=== PATIENT | male | born 1980 | race Caucasian/White ===

== ENCOUNTER → 2023-06-22 | Emergency (ER) | payer OTHER ==
[~2023-06-22] MED LIST: AZITHROMYCIN 250 MG TAB ONE; CODEINE 30MG/APAP 300MG TAB ONE; KETOROLAC 30 MG/ML INJ ONE
--- OUTSIDE RECORDS SUMMARY | 2023-06-22 20:22 | XMS REPORT | Continuity of Care Document ---
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 Jerry Reyes fentaNYL (ANES) 12-27 13:22: 00 No Route: IV, Drug form: INJ, ONCE, Stop date: 12/27/17 8:22:00 CDT Jerry Reyes ertapenem (ANES) 12-27 13:22: 00 No Route: IV, Drug form: INJ, ONCE, Stop date: 12/27/17 8:22:00 CDT Jerry Reyes fentaNYL (ANES) 12-27 13:22: 00 No Route: IV, Drug form: INJ, ONCE, Stop date: 12/27/17 8:22:00 CDT Jerry Reyes Enoxaparin 12-27 13:00: 00 No 30 mg, Route: SUB-Q, [id number], Dosing Weight 61.364, kg, Start date: 12/27/17 8:00:00 CDT, Duration: 30 day, Stop date: 01/25/18 20:00:00 CDT Jerry Reyes Enoxaparin 12-27 13:00: 00 No 30 mg, Route: SUB-Q, [id number], Dosing Weight 61.364, kg, Start date: 12/27/17 8:00:00 CDT, Duration: 30 day, Stop date: 01/25/18 20:00:00 CDT Jerry Reyes D5W 1/2NS + KCL 20mEq/L 1000ml (Premix) 1,000 mL 12-27 12:54: 00 No Notes: PREMIX IV - Do Not Alter WASTE: F/P - Sink; E - Municipal Trash Bin Jerry Reyes Saline Flush 0.9% 12-27 12:54: 00 No Notes: (Same as: BD Posiflush) Jerry Reyes D5W 1/2NS + KCL 20mEq/L 1000ml (Premix) 1,000 mL 12-27 12:54: 00 No Notes: PREMIX IV - Do Not Alter WASTE: F/P - Sink; E - Municipal Trash Bin Jerry Reyes Saline Flush 0.9% 12-27 12:54: 00 No Notes: (Same as: BD Posiflush) Jerry Reyes Lactated Ringers Injection IV (ANES) 1000 mL 12-27 12:05: 00 No Route: IV, Total Volume: 1,000, Start date: 12/27/17 7:05:00 CDT, Stop date: 12/27/17 8:05:00 CDT Jerry Reyes Lactated Ringers Injection IV (ANES) 1000 mL 12-27 12:05: 00 No Route: IV, Total Volume: 1,000, Start date: 12/27/17 7:05:00 CDT, Stop date: 12/27/17 8:05:00 CDT Jerry Reyes 72 HR Scopolamine 0.0139 MG/HR Transdermal Patch 12-27 11:58: 00 No Notes: Change patch every 72 hours (Same as: Transderm- Scop) Jerry Reyes gabapentin 300 MG Oral Capsule 12-27 11:58: 00 No Notes: (Same as: Neurontin) Jerry Reyes Celebrex 12-27 11:58: 00 No Notes: NSAID. Please check indication . Not for seizure. (Same As: CeleBREX) Jerry Reyes Tylenol 12-27 11:58: 00 No Notes: Max acetaminop hen 4000 mg/day (4 gm/day). (Same as: Tylenol Extra Strength) Jerry Reyes 72 HR Scopolamine 0.0139 MG/HR Transdermal Patch 12-27 11:58: 00 No Notes: Change patch every 72 hours (Same as: Transderm- Scop) Jerry Reyes gabapentin 300 MG Oral Capsule 12-27 11:58: 00 No Notes: (Same as: Neurontin) Jerry Reyes Celebrex 12-27 11:58: 00 No Notes: NSAID. Please check indication . Not for seizure. (Same As: CeleBREX) Jerry Reyes Tylenol 12-27 11:58: 00 No Notes: Max acetaminop hen 4000 mg/day (4 gm/day). (Same as: Tylenol Extra Strength) Jerry Reyes Acetaminoph en 300 MG / Hydrocodone Bitartrate 10 MG Oral Tablet [Vicodin 10/300] 12-16 19:33: 00 No 1 tab, PO, Q8H, PRN Pain, # 90 tab, 0 Refill(s) Kamillafreddie Reyes tramadol hydrochlori de 50 MG Oral Tablet 12-16 19:33: 00 No 50 mg = 1 tab, PO, BID, # 30 tab, 0 Refill(s) Kamillafreddie Reyes Acetaminoph en 300 MG / Hydrocodone Bitartrate 10 MG Oral Tablet [Vicodin 10/300] 12-16 19:33: 00 No 1 tab, PO, Q8H, PRN Pain, # 90 tab, 0 Refill(s) Kamillafreddie Reyes tramadol hydrochlori de 50 MG Oral Tablet 12-16 19:33: 00 No 50 mg = 1 tab, PO, BID, # 30 tab, 0 Refill(s) Jerry Reyes PEG 3350/Electr olytes 240 GM Oral Solution Reconstitut ed PEG 3350/Electr olytes 240 GM Oral Solution Reconstitut ed 11-15 00:00: 00 Yes JOVITA WHYTE M.D. MIX DIRECTED AND DRINK OVER 4 HOURS, START AT 4PM. [facility] Neomycin Sulfate 500 MG Oral Tablet Neomycin Sulfate 500 MG Oral Tablet 11-15 00:00: 00 Yes JOVITA WHYTE M.D. TAKE TWO TABLETS PO AT 1PM, 2PM, 11PM [facility] Erythromyci n Base 500 MG Oral Tablet Erythromyci n Base 500 MG Oral Tablet 11-15 00:00: 00 Yes JOVITA WHYTE M.D. TAKE TWO TABLETS P.O. AT 1PM, 2PM AND 11PM. [facility] Aspirin 325 MG Oral Tablet 2016-06 19:51: 00 Yes 325 mg = 1 tab, NG, Daily, # 21 tab, 0 Refill(s) Jerry Reyes Aspirin 325 MG Oral Tablet 2016-06 19:51: 00 Yes 325 mg = 1 tab, NG, Daily, # 21 tab, 0 Refill(s) Jerry Reyes naproxen 500 mg oral tablet 2016-06 19:09: 00 Yes 500 mg = 1 tab, PO, Q12H, X 30 day, # 60 tab, 0 Refill(s) Jerry Reyes gabapentin 300 MG Oral Capsule 2016-06 19:09: 00 Yes 300 mg = 1 cap, PO, Q8H, # 63 cap, 0 Refill(s) Jerry Reyes Aspirin 325 MG Oral Tablet 2016-06 19:09: 00 No 325 mg = 1 tab, NG, Daily, # 60 tab, 0 Refill(s) Jerry Reyes acetaminoph en 500 mg oral tablet 2016-06 19:09: 00 Yes 1,000 mg = 2 tab, PO, Q6H, X 14 day, # 112 tab, 0 Refill(s) Jerry Reyes Docusate Sodium 100 MG Oral Capsule 2016-06 19:09: 00 Yes 100 mg = 1 cap, PO, BID, # 60 cap, 0 Refill(s) Jerry Reyes Oxycodone Hydrochlori de 5 MG Oral Tablet 2016-06 19:09: 00 Yes 5 mg = 1 tab, PO, Q6H, PRN Pain Score 4-6, X 7 day, # 28 tab, 0 Refill(s) Jerry Reyes tramadol hydrochlori de 50 MG Oral Tablet 2016-06 19:09: 00 Yes 100 mg = 2 tab, PO, Q6H, PRN Pain Score 4-6, X 14 day, # 112 tab, 0 Refill(s) Jerry Reyes naproxen 500 mg oral tablet 2016-06 19:09: 00 Yes 500 mg = 1 tab, PO, Q12H, X 30 day, # 60 tab, 0 Refill(s) Jerry Reyes gabapentin 300 MG Oral Capsule 2016-06 19:09: 00 Yes 300 mg = 1 cap, PO, Q8H, # 63 cap, 0 Refill(s) Jerry Reyes Aspirin 325 MG Oral Tablet 2016-06 19:09: 00 No 325 mg = 1 tab, NG, Daily, # 60 tab, 0 Refill(s) Jerry yip Eric acetaminoph en 500 mg oral tablet 2016-06 19:09: 00 Yes 1,000 mg = 2 tab, PO, Q6H, X 14 day, # 112 tab, 0 Refill(s) Kamillafreddie phi Reyes Docusate Sodium 100 MG Oral Capsule 2016-06 19:09: 00 Yes 100 mg = 1 cap, PO, BID, # 60 cap, 0 Refill(s) Kamillafreddie phi Reyes Oxycodone Hydrochlori de 5 MG Oral Tablet 2016-06 19:09: 00 Yes 5 mg = 1 tab, PO, Q6H, PRN Pain Score 4-6, X 7 day, # 28 tab, 0 Refill(s) Kamillafreddie phi Reyes tramadol hydrochlori de 50 MG Oral Tablet 2016-06 19:09: 00 Yes 100 mg = 2 tab, PO, Q6H, PRN Pain Score 4-6, X 14 day, # 112 tab, 0 Refill(s) Kamillafreddie phi Reyes Robaxin 03-25 18:00: 00 No Notes: (Same as:Robaxin ) Kamillafreddie phi Reyes Robaxin 03-25 18:00: 00 No Notes: (Same as:Robaxin ) Kamillafreddie phi Reyes Isolyte S PH-7.4 (Bolus) IV 03-25 02:22: 00 No 500 mL, Route: IV, Dosing Weight 62.4, kg, ONCE, Start date: 03/24/17 21:22:00 CDT, Stop date: 03/24/17 21:22:00 CDT Kamillafreddie phi Reyes Isolyte S PH-7.4 (Bolus) IV 03-25 02:22: 00 No 500 mL, Route: IV, Dosing Weight 62.4, kg, ONCE, Start date: 03/24/17 21:22:00 CDT, Stop date: 03/24/17 21:22:00 CDT Jerry Reyes TPN solution, adult 1,000 mL + famotidine 1 ea 03-24 23:00: 00 No Notes: Per hospital policy, bag must be changed every 24hr. [facility] TPN solution, adult 1,000 mL + famotidine 1 03-24 23:00: 00 No Notes: Per hospital policy, bag must be changed every 24hr. [facility] [place] TPN solution, adult 1,000 mL + famotidine 1 03-23 23:00: 00 No Notes: Per hospital policy, bag must be changed every 24hr. [facility] TPN solution, adult 1,000 mL + famotidine 1 03-23 23:00: 00 No Notes: Per hospital policy, bag must be changed every 24hr. [facility] Insulin regular 03-23 14:17: 00 No 60 units) WASTE: F/P - Black; E - Municipal Trash Bin Stable for 28 days at room temperatur e Expires in days from ____Date [facility] [place] Dextrose 50% Syringe 03-23 14:17: 00 No 25 gm, 50 mL, Route: IVP, Drug Form: INJ, Dosing Weight 62.4, kg, PRN, PRN Blood Glucose Results, Start date: 03/23/17 9:17:00 CDT, Duration: 30 day, Stop date: 04/22/17 9:16:00 CDT [facility] [place] Glucagon 03-23 14:17: 00 No 1 mg, Route: IM, Drug form: PDR/INJ, PRN, Dosing Weight 62.4, kg, PRN Blood Glucose Results, Start date: 03/23/17 9:17:00 CDT, Duration: 30 day, Stop date: 04/22/17 9:16:00 CDT [facility] [place] Insulin regular 03-23 14:17: 00 No 60 units) WASTE: F/P - Black; E - Municipal Trash Bin Stable for 28 days at room temperatur e Expires in days from ____Date [facility] Dextrose 50% Syringe 03-23 14:17: 00 No 25 gm, 50 mL, Route: IVP, Drug Form: INJ, Dosing Weight 62.4, kg, PRN, PRN Blood Glucose Results, Start date: 03/23/17 9:17:00 CDT, Duration: 30 day, Stop date: 04/22/17 9:16:00 CDT Jerry Reyes Glucagon 03-23 14:17: 00 No 1 mg, Route: IM, Drug form: PDR/INJ, PRN, Dosing Weight 62.4, kg, PRN Blood Glucose Results, Start date: 03/23/17 9:17:00 CDT, Duration: 30 day, Stop date: 04/22/17 9:16:00 CDT Jerry Reyes TPN solution, adult 1,000 mL + famotidine 1 ea 03-22 23:00: 00 No Notes: Per hospital policy, bag must be changed every 24hr. Jerry Reyes TPN solution, adult 1,000 mL + famotidine 1 ea 03-22 23:00: 00 No Notes: Per hospital policy, bag must be changed every 24hr. Jerry yip Eric gabapentin 300 MG Oral Capsule 03-22 21:00: 00 No Notes: (Same as: Neurontin) Jerry yip Eric gabapentin 300 MG Oral Capsule 03-22 21:00: 00 No Notes: (Same as: Neurontin) Jerry yip Eric Ondansetron 03-22 14:57: 00 No Notes: (Same as: Zofran) MEDICATION WASTE Product Size: 4 mg Product Wasted: ___ mg Jerry yip Eric Naloxone 03-22 14:57: 00 No Notes: Same as Narcan Jerry Reyes Hydromorpho ne 03-22 14:57: 00 No Notes: Same as: Dilaudid Kamillafreddie phi Reyes Flumazenil 03-22 14:57: 00 No Notes: (Same as: Romazicon) Jerry phi Reyes Ondansetron 03-22 14:57: 00 No Notes: (Same as: Zofran) MEDICATION WASTE Product Size: 4 mg Product Wasted: ___ mg Kamillafreddie yip Eric Naloxone 03-22 14:57: 00 No Notes: Same as Narcan Memoria phi Reyes Hydromorpho ne 03-22 14:57: 00 No Notes: Same as: Dilaudid [facility] Flumazenil 03-22 14:57: 00 No Notes: (Same as: Romazicon) [facility] [place] Morphine 03-22 14:48: 00 No Notes: (Same as:MORPhin e Sulfate) [facility] Morphine 03-22 14:48: 00 No Notes: (Same as:MORPhin e Sulfate) [facility] neostigmine (ANES) 03-22 14:44: 00 No Route: IV, Drug form: INJ, ONCE, Stop date: 03/22/17 9:44:00 CDT Memoria phi Reyes glycopyrrol ate (ANES) 03-22 14:44: 00 No Route: IV, Drug form: INJ, ONCE, Stop date: 03/22/17 9:44:00 CDT Memoria phi Reyes ondansetron (ANES) 03-22 14:44: 00 No Route: IV, Drug form: INJ, ONCE, Stop date: 03/22/17 9:44:00 CDT [facility] phi Reyes neostigmine (ANES) 03-22 14:44: 00 No Route: IV, Drug form: INJ, ONCE, Stop date: 03/22/17 9:44:00 CDT [facility] phi Reyes glycopyrrol ate (ANES) 03-22 14:44: 00 No Route: IV, Drug form: INJ, ONCE, Stop date: 03/22/17 9:44:00 CDT [facility]oria phi Reyes ondansetron (ANES) 03-22 14:44: 00 No Route: IV, Drug form: INJ, ONCE, Stop date: 03/22/17 9:44:00 CDT [facility] [place] phenylephri ne (ANES) 03-22 13:49: 00 No Route: IV, Drug form: INJ, ONCE, Stop date: 03/22/17 8:49:00 CDT [facility] [place] phenylephri ne (ANES) 03-22 13:49: 00 No Route: IV, Drug form: INJ, ONCE, Stop date: 03/22/17 8:49:00 CDT Memfreddie Nagyann rocuronium ([facility]) 03-22 13:19: 00 No Route: IV, Drug form: INJ, ONCE, Stop date: 03/22/17 8:19:00 CDT [facility] l [facility] propofol ([facility]) 03-22 13:19: 00 No Route: IV, Drug form: INJ, ONCE, Stop date: 03/22/17 8:19:00 CDT [facility] [place] lidocaine ([facility]) 03-22 13:19: 00 No Route: IV, Drug form: INJ, ONCE, Stop date: 03/22/17 8:19:00 CDT [facility] fentaNYL ([facility]) 03-22 13:19: 00 No Route: IV, Drug form: INJ, ONCE, Stop date: 03/22/17 8:19:00 CDT Memfreddie l Eric ceFAZolin ([facility]) 03-22 13:19: 00 No Route: IV, Drug form: INJ, ONCE, Stop date: 03/22/17 8:19:00 CDT Memfreddie Nagyann rocuronium ([facility]) 03-22 13:19: 00 No Route: IV, Drug form: INJ, ONCE, Stop date: 03/22/17 8:19:00 CDT [facility] propofol ([facility]) 03-22 13:19: 00 No Route: IV, Drug form: INJ, ONCE, Stop date: 03/22/17 8:19:00 CDT [facility] [place] lidocaine ([facility]) 03-22 13:19: 00 No Route: IV, Drug form: INJ, ONCE, Stop date: 03/22/17 8:19:00 CDT [facility] [place] fentaNYL ([facility]) 03-22 13:19: 00 No Route: IV, Drug form: INJ, ONCE, Stop date: 03/22/17 8:19:00 CDT [facility] [place] ceFAZolin ([facility]) 03-22 13:19: 00 No Route: IV, Drug form: INJ, ONCE, Stop date: 03/22/17 8:19:00 CDT [facility] [place] midazolam ([facility]) 03-22 13:04: 00 No Route: IV, Drug form: SOLN, ONCE, Stop date: 03/22/17 8:04:00 CDT [facility] [place] midazolam ([facility]) 03-22 13:04: 00 No Route: IV, Drug form: SOLN, ONCE, Stop date: 03/22/17 8:04:00 CDT Memoria l Eric LR 1000 mL INJ ([facility]) 03-22 12:29: 00 No Route: IV, Total Volume: 1,000, Start date: 03/22/17 7:29:00 CDT, Stop date: 03/22/17 8:29:00 CDT [facility] [place] LR 1000 mL INJ ([facility]) 03-22 12:29: 00 No Route: IV, Total Volume: 1,000, Start date: 03/22/17 7:29:00 CDT, Stop date: 03/22/17 8:29:00 CDT Memoria l [facility] TPN solution, adult 1,000 mL + famotidine 1 03-21 23:00: 00 No Notes: Per hospital policy, bag must be changed every 24hr. [facility] [place] TPN solution, adult 1,000 mL + famotidine 1 03-21 23:00: 00 No Notes: Per hospital policy, bag must be changed every 24hr. [facility] l [place] TPN solution, adult 1,000 mL + famotidine 1 03-20 23:00: 00 No Notes: Per hospital policy, bag must be changed every 24hr. [facility] [place] TPN solution, adult 1,000 mL + famotidine 1 03-20 23:00: 00 No Notes: Per hospital policy, bag must be changed every 24hr. [facility] [place] Acetaminoph en 03-20 18:00: 00 No Notes: Max acetaminop hen 4000 mg/day (4 gm/day). (Same as: Tylenol Extra Strength) [facility] l [facility] Acetaminoph en 03-20 18:00: 00 No Notes: Max acetaminop hen 4000 mg/day (4 gm/day). (Same as: Tylenol Extra Strength) Jerry Reyes TPN solution, adult 1,000 mL + famotidine 1 ea 03-19 23:00: 00 No Notes: Per hospital policy, bag must be changed every 24hr. Jerry Reyes TPN solution, adult 1,000 mL + famotidine 1 ea 03-19 23:00: 00 No Notes: Per hospital policy, bag must be changed every 24hr. Jerry Reyes cefOXitin (ANES) 03-19 13:48: 00 No Route: IV, Drug form: INJ, ONCE, Stop date: 03/19/17 8:48:00 CDT Jerry Reyes ketAMINE (ANES) 03-19 13:48: 00 No Route: IV, Drug form: INJ, ONCE, Stop date: 03/19/17 8:48:00 CDT Memfreddie Nagyann cefOXitin (ANES) 03-19 13:48: 00 No Route: IV, Drug form: INJ, ONCE, Stop date: 03/19/17 8:48:00 CDT Memfreddie Reyes ketAMINE (ANES) 03-19 13:48: 00 No Route: IV, Drug form: INJ, ONCE, Stop date: 03/19/17 8:48:00 CDT Jerry Reyes midazolam (ANES) 03-19 13:44: 00 No Route: IV, Drug form: SOLN, ONCE, Stop date: 03/19/17 8:44:00 CDT Memfreddie Reyes lidocaine (ANES) 03-19 13:44: 00 No Route: IV, Drug form: INJ, ONCE, Stop date: 03/19/17 8:44:00 CDT Jerry phi Eric propofol (ANES) 03-19 13:44: 00 No Route: IV, Drug form: INJ, ONCE, Stop date: 03/19/17 8:44:00 CDT Memfreddie Nagyann succinylcho line (ANES) 03-19 13:44: 00 No Route: IV, Drug form: INJ, ONCE, Stop date: 03/19/17 8:44:00 CDT Memoria phi Reyes fentaNYL ([facility]) 03-19 13:44: 00 No Route: IV, Drug form: INJ, ONCE, Stop date: 03/19/17 8:44:00 CDT [facility] phi [place] ondansetron ([facility]) 03-19 13:44: 00 No Route: IV, Drug form: INJ, ONCE, Stop date: 03/19/17 8:44:00 CDT Memoria phi Eric midazolam ([facility]) 03-19 13:44: 00 No Route: IV, Drug form: SOLN, ONCE, Stop date: 03/19/17 8:44:00 CDT Memoria phi Eric lidocaine ([facility]) 03-19 13:44: 00 No Route: IV, Drug form: INJ, ONCE, Stop date: 03/19/17 8:44:00 CDT Memoria phi Eric propofol ([facility]) 03-19 13:44: 00 No Route: IV, Drug form: INJ, ONCE, Stop date: 03/19/17 8:44:00 CDT Memoria phi Reyes succinylcho line ([facility]) 03-19 13:44: 00 No Route: IV, Drug form: INJ, ONCE, Stop date: 03/19/17 8:44:00 CDT Memfreddie phi [place] fentaNYL ([facility]) 03-19 13:44: 00 No Route: IV, Drug form: INJ, ONCE, Stop date: 03/19/17 8:44:00 CDT Memoria phi Eric ondansetron ([facility]) 03-19 13:44: 00 No Route: IV, Drug form: INJ, ONCE, Stop date: 03/19/17 8:44:00 CDT Memoria phi Reyes Ondansetron 03-19 13:20: 00 No Notes: (Same as: Zofran) MEDICATION WASTE Product Size: 4 mg Product Wasted: ___ mg Jerry Reyes Flumazenil 03-19 13:20: 00 No Notes: (Same as: Romazicon) Memoria l Eric Naloxone 03-19 13:20: 00 No Notes: Same as Narcan Memoria l [facility] Hydromorpho ne 03-19 13:20: 00 No Notes: Same as: Dilaudid Jerry Nagyann Ondansetron 03-19 13:20: 00 No Notes: (Same as: Zofran) MEDICATION WASTE Product Size: 4 mg Product Wasted: ___ mg Memfreddie Nagyann Flumazenil 03-19 13:20: 00 No Notes: (Same as: Romazicon) Memfreddie l [place] Naloxone 03-19 13:20: 00 No Notes: Same as Narcan Memfreddie l Eric Hydromorpho ne 03-19 13:20: 00 No Notes: Same as: Dilaudid Memfreddie yip Eric sodium chloride 0.9% 500 ml INJ (ANES) 03-19 12:41: 00 No Route: IV, Total Volume: 500, Start date: 03/19/17 7:41:00 CDT, Stop date: 03/19/17 8:41:00 CDT [facility] [place] sodium chloride 0.9% 500 ml INJ (ANES) 03-19 12:41: 00 No Route: IV, Total Volume: 500, Start date: 03/19/17 7:41:00 CDT, Stop date: 03/19/17 8:41:00 CDT [facility] [place] TPN solution, adult 1,000 mL + famotidine 1 ea 03-18 23:00: 00 No Notes: Per hospital policy, bag must be changed every 24hr. Memoria l [facility] TPN solution, adult 1,000 mL + famotidine 1 ea 03-18 23:00: 00 No Notes: Per hospital policy, bag must be changed every 24hr. [facility] [place] TPN solution, adult 1,000 mL + famotidine 1 ea 03-17 23:00: 00 No Notes: Per hospital policy, bag must be changed every 24hr. Memoria l [facility] TPN solution, adult 1,000 mL + famotidine 1 ea 03-17 23:00: 00 No Notes: Per hospital policy, bag must be changed every 24hr. Jerry Nagyann influenza virus vaccine, inactivated 03-17 14:00: 00 No Notes: (Same as: Fluzone Quadrivale nt, Fluarix Quadrivale nt) For 3 years of age and older (0.5 mL IM) Shake well before use Jerry Nagyann influenza virus vaccine, inactivated 03-17 14:00: 00 No Notes: (Same as: Fluzone Quadrivale nt, Fluarix Quadrivale nt) For 3 years of age and older (0.5 mL IM) Shake well before use Jerry phi Reyes TPN solution, adult 333 mL + famotidine 1 ea 03-16 23:00: 00 No Notes: Per hospital policy, bag must be changed every 24hr. Jerry phi Reyes Acetaminoph en 03-16 23:00: 00 No Notes: Infuse over 15 minutes Do not exceed 4gm/day of acetaminop hen MEDICATION WASTE Product Size: 1000 mg Product Wasted: 0___ mg Jerry yip [place] TPN solution, adult 333 mL + famotidine 1 ea 03-16 23:00: 00 No Notes: Per hospital policy, bag must be changed every 24hr. Jerry phi Reyes Acetaminoph en 03-16 23:00: 00 No Notes: Infuse over 15 minutes Do not exceed 4gm/day of acetaminop hen MEDICATION WASTE Product Size: 1000 mg Product Wasted: 0___ mg Jerry Reyes Isolyte S (PH 7.4) 1000 mL 1,000 mL 03-16 21:27: 00 No Notes: (Same as: Isolyte S PH 7.4) Jerry Reyes Isolyte S (PH 7.4) 1000 mL 1,000 mL 03-16 21:27: 00 No Notes: (Same as: Isolyte S PH 7.4) Jerry Reyes Lidocaine Hydrochlori de 10 MG/ML Injectable Solution 03-16 21:00: 00 No Notes: (Same as: Xylocaine) Jerry Reyes Saline Flush 0.9% 03-16 21:00: 00 No Notes: (Same as: BD Posiflush) Memoria l Eric Lidocaine Hydrochlori de 10 MG/ML Injectable Solution 03-16 21:00: 00 No Notes: (Same as: Xylocaine) [facility] [place] Saline Flush 0.9% 03-16 21:00: 00 No Notes: (Same as: BD Posiflush) Memoria l [facility] Saline Flush 0.9% 03-16 20:48: 00 No Notes: (Same as: BD Posiflush) Memoria l [facility] Saline Flush 0.9% 03-16 20:48: 00 No Notes: (Same as: BD Posiflush) [facility] [place] Tums 03-16 20:46: 00 No Notes: (Same As: Tums) Calcium Carbonate 500 mg = 200 mg elemental calcium Dose = mg calcium carbonate ( mg elemental calcium) Memfreddie l Eric Tums 03-16 20:46: 00 No Notes: (Same As: Tums) Calcium Carbonate 500 mg = 200 mg elemental calcium Dose = mg calcium carbonate ( mg elemental calcium) [facility] [place] Lidocaine Hydrochlori de 10 MG/ML Injectable Solution 03-16 20:00: 00 No Notes: (Same as: Xylocaine) Memoria l [facility] Lidocaine Hydrochlori de 10 MG/ML Injectable Solution 03-16 20:00: 00 No Notes: (Same as: Xylocaine) [facility] [place] sugammadex 03-16 19:32: 00 No Notes: (Same as: [place]) [facility] [place] sugammadex 03-16 19:32: 00 No Notes: (Same as: [place]) [facility] [place] Saline Flush 0.9% 03-16 19:13: 00 No Notes: (Same as: BD Posiflush) Memoria l [facility] Saline Flush 0.9% 03-16 19:13: 00 No Notes: (Same as: BD Posiflush) Memoria l [facility] neostigmine (ANES) 03-16 17:01: 00 No Route: IV, Drug form: INJ, ONCE, Stop date: 03/16/17 12:01:00 CDT Memfreddie Reyes acetaminoph en (ANES) 03-16 17:01: 00 No Route: IV, Drug form: INJ, ONCE, Stop date: 03/16/17 12:01:00 CDT Memfreddie Reyes ondansetron (ANES) 03-16 17:01: 00 No Route: IV, Drug form: INJ, ONCE, Stop date: 03/16/17 12:01:00 CDT [place] ketOROLAC (ANES) 03-16 17:01: 00 No IV, ONCE Memoria phi Reyes glycopyrrol ate (ANES) 03-16 17:01: 00 No Route: IV, Drug form: INJ, ONCE, Stop date: 03/16/17 12:01:00 CDT Memfreddie Reyes neostigmine (ANES) 03-16 17:01: 00 No Route: IV, Drug form: INJ, ONCE, Stop date: 03/16/17 12:01:00 CDT Memfreddie Reyes acetaminoph en (ANES) 03-16 17:01: 00 No Route: IV, Drug form: INJ, ONCE, Stop date: 03/16/17 12:01:00 CDT Memfreddie Reyes ondansetron (ANES) 03-16 17:01: 00 No Route: IV, Drug form: INJ, ONCE, Stop date: 03/16/17 12:01:00 CDT Memfreddie Reyes ketOROLAC (ANES) 03-16 17:01: 00 No IV, ONCE Memfreddie Reyes glycopyrrol ate (ANES) 03-16 17:01: 00 No Route: IV, Drug form: INJ, ONCE, Stop date: 03/16/17 12:01:00 CDT Jerry Reyes Tums 03-16 16:54: 00 No Notes: (Same As: Rayshawn) Calcium Carbonate 500 mg = 200 mg elemental calcium Dose = mg calcium carbonate ( mg elemental calcium) Jerry Tabares 03-16 16:54: 00 No Notes: (Same As: Tums) Calcium Carbonate 500 mg = 200 mg elemental calcium Dose = mg calcium carbonate ( mg elemental calcium) Jerry Gordon 03-16 16:53: 00 No Notes: (Same as: Evan) MEDICATION WASTE Product Size: 4 mg Product Wasted: ___ mg Jerry Gordon 03-16 16:53: 00 No Notes: (Same as: Evan) MEDICATION WASTE Product Size: 4 mg Product Wasted: ___ mg Jerry Aguilarmorpho mandie 03-16 13:55: 00 No 0.5 mg, Route: IV, ONCE, Dosing Weight 62.4, kg, Start date: 03/16/17 8:55:00 CDT, Stop date: 03/16/17 8:55:00 CDT Jerry Aguilarmorpho mandie 03-16 13:55: 00 No 0.5 mg, Route: IV, ONCE, Dosing Weight 62.4, kg, Start date: 03/16/17 8:55:00 CDT, Stop date: 03/16/17 8:55:00 CDT Jerry Reyes phenylephri ne (ANES) 03-16 13:28: 00 No Route: IV, Drug form: INJ, ONCE, Stop date: 03/16/17 8:28:00 CDT Jerry Reyes metoprolol (ANES) 03-16 13:28: 00 No Route: IV, Drug form: INJ, ONCE, Stop date: 03/16/17 8:28:00 CDT Memfreddie Reyes phenylephri ne (ANES) 03-16 13:28: 00 No Route: IV, Drug form: INJ, ONCE, Stop date: 03/16/17 8:28:00 CDT Jerry Reyes metoprolol (ANES) 03-16 13:28: 00 No Route: IV, Drug form: INJ, ONCE, Stop date: 03/16/17 8:28:00 CDT Memoria l Eric metoclopram maverick (ANES) [id number] 13:23: 00 No Route: IV, Drug form: INJ, ONCE, Stop date: 03/16/17 8:23:00 CDT Memoria l [place] dexamethaso ne (ANES) 03-16 13:23: 00 No Route: IV, Drug form: INJ, ONCE, Stop date: 03/16/17 8:23:00 CDT Memoria l [place] rocuronium (ANES) 03-16 13:23: 00 No Route: IV, Drug form: INJ, ONCE, Stop date: 03/16/17 8:23:00 CDT Memoria l [place] metoclopram maverick (ANES) 03-16 13:23: 00 No Route: IV, Drug form: INJ, ONCE, Stop date: 03/16/17 8:23:00 CDT Memoria l Eric dexamethaso ne (ANES) 03-16 13:23: 00 No Route: IV, Drug form: INJ, ONCE, Stop date: 03/16/17 8:23:00 CDT Memoria l Eric rocuronium (ANES) 0 03-16 13:23: 00 No Route: IV, Drug form: INJ, ONCE, Stop date: 03/16/17 8:23:00 CDT Memoria l [place] lidocaine (ANES) 0 03-16 13:18: 00 No Route: IV, Drug form: INJ, ONCE, Stop date: 03/16/17 8:18:00 CDT Memoria l Eric fentaNYL (ANES) 03-16 13:18: 00 No Route: IV, Drug form: INJ, ONCE, Stop date: 03/16/17 8:18:00 CDT Memoria l Eric propofol (ANES) 03-16 13:18: 00 No Route: IV, Drug form: INJ, ONCE, Stop date: 03/16/17 8:18:00 CDT Memoria l Eric lidocaine (ANES) 0 03-16 13:18: 00 No Route: IV, Drug form: INJ, ONCE, Stop date: 03/16/17 8:18:00 CDT Memoria l [place] fentaNYL (ANES) 03-16 13:18: 00 No Route: IV, Drug form: INJ, ONCE, Stop date: 03/16/17 8:18:00 CDT Jerry Nagyann propofol (ANES) 03-16 13:18: 00 No Route: IV, Drug form: INJ, ONCE, Stop date: 03/16/17 8:18:00 CDT Memfreddie yip [place] midazolam (ANES) 03-16 13:08: 00 No Route: IV, Drug form: SOLN, ONCE, Stop date: 03/16/17 8:08:00 CDT Memfreddie yip Eric midazolam (ANES) 03-16 13:08: 00 No Route: IV, Drug form: SOLN, ONCE, Stop date: 03/16/17 8:08:00 CDT Jerry Nagyann sodium chloride 0.9% 1000 ml INJ (ANES) 03-16 12:35: 00 No Route: IV, Total Volume: 1,000, Start date: 03/16/17 7:35:00 CDT, Stop date: 03/16/17 8:35:00 CDT Memfreddie l Eric sodium chloride 0.9% 1000 ml INJ (ANES) 03-16 12:35: 00 No Route: IV, Total Volume: 1,000, Start date: 03/16/17 7:35:00 CDT, Stop date: 03/16/17 8:35:00 CDT Jerry Nagyann Isolyte S (PH 7.4) 1000 mL 1,000 mL 03-16 05:15: 00 No Notes: (Same as: Isolyte S PH 7.4) Jerry l [place] Isolyte S (PH 7.4) 1000 mL 1,000 mL 03-16 05:15: 00 No Notes: (Same as: Isolyte S PH 7.4) Memfreddie l [place] Protonix 03-16 05:00: 00 No Notes: For IV push reconstitu te with 10 ml 0.9% sodium chloride and push over 2 minutes. (Same as: Protonix) Memfreddie l Eric Protonix 03-16 05:00: 00 No Notes: For IV push reconstitu te with 10 ml 0.9% sodium chloride and push over 2 minutes. (Same as: Protonix) Jerry Reyes lansoprazol una 03-16 04:55: 00 No 30 mg, Route: IVP, Drug form: INJ, Daily, Dosing Weight 62.4, kg, Start date: 03/15/17 23:55:00 CDT, Duration: 30 day, Stop date: 04/14/17 9:00:00 CDT Jerry Reyes lansoprazol e 03-16 04:55: 00 No 30 mg, Route: IVP, Drug form: INJ, Daily, Dosing Weight 62.4, kg, Start date: 03/15/17 23:55:00 CDT, Duration: 30 day, Stop date: 04/14/17 9:00:00 CDT Jerry Reyes Naprosyn 03-16 02:00: 00 No Notes: (Same as: Naprosyn) Take with food. Jerry Reyes Naprosyn 03-16 02:00: 00 No Notes: (Same as: Naprosyn) Take with food. Jerry Reyes Methadone 03-15 21:00: 00 No Notes: (Same as: Dolophine) Jerry Reyes Lyrica 03-15 21:00: 00 No Notes: (Same as: Lyrica) Jerry Reyes Methadone 03-15 21:00: 00 No Notes: (Same as: Dolophine) Jerry Reyes Lyrica 03-15 21:00: 00 No Notes: (Same as: Lyrica) Jerry Reyes Dilaudid 03-15 03:31: 00 No 0.5 mg, Route: IVP, ONCE, Dosing Weight 62.4, kg, Priority: STAT, Start date: 03/14/17 22:31:00 CDT, Stop date: 03/14/17 22:31:00 CDT Jerry Reyes Dilaudid 03-15 03:31: 00 No 0.5 mg, Route: IVP, ONCE, Dosing Weight 62.4, kg, Priority: STAT, Start date: 03/14/17 22:31:00 CDT, Stop date: 03/14/17 22:31:00 CDT Memoria phi Reyes Melatonin 03-15 02:00: 00 No Notes: (Same as: Melatonin) Memoria l Eric Melatonin 03-15 02:00: 00 No Notes: (Same as: Melatonin) Memoria l Eric Dilaudid 03-14 23:10: 00 No Notes: Same as: Dilaudid Memoria l Eric Dilaudid 03-14 23:10: 00 No Notes: Same as: Dilaudid Memoria l Eric Methadone 03-14 23:07: 00 No Notes: (Same as: Dolophine) Memoria l Eric Methadone 03-14 23:07: 00 No Notes: (Same as: Dolophine) Memoria l Eric Dilaudid 03-14 19:15: 00 No Notes: Same as: Dilaudid Memoria l [place] Dilaudid 03-14 19:15: 00 No Notes: Same as: Dilaudid Memoria l Eric Ondansetron 03-14 18:25: 00 No Notes: (Same as: Zofran) MEDICATION WASTE Product Size: 4 mg Product Wasted: ___ mg Memoria l Eric Naloxone 03-14 18:25: 00 No Notes: Same as Narcan Memoria l Eric Flumazenil 03-14 18:25: 00 No Notes: (Same as: Romazicon) Memoria l Eric Hydromorpho ne 03-14 18:25: 00 No Notes: Same as: Dilaudid Memoria l [place] Ondansetron 03-14 18:25: 00 No Notes: (Same as: Zofran) MEDICATION WASTE Product Size: 4 mg Product Wasted: ___ mg Memoria l [place] Naloxone 03-14 18:25: 00 No Notes: Same as Narcan Memoria l Eric Flumazenil 03-14 18:25: 00 No Notes: (Same as: Romazicon) Memoria l Eric Hydromorpho ne 03-14 18:25: 00 No Notes: Same as: Dilaudid Memoria phi NagyEric rocuronium (ANES) 03-14 18:04: 00 No Route: IV, Drug form: INJ, ONCE, Stop date: 03/14/17 13:04:00 CDT Memoria l [place] rocuronium (ANES) 03-14 18:04: 00 No Route: IV, Drug form: INJ, ONCE, Stop date: 03/14/17 13:04:00 CDT Memoria l Eric ceFAZolin ([facility]) 03-14 17:54: 00 No Route: IV, Drug form: INJ, ONCE, Stop date: 03/14/17 12:54:00 CDT Memoria l Eric ceFAZolin ([facility]) 03-14 17:54: 00 No Route: IV, Drug form: INJ, ONCE, Stop date: 03/14/17 12:54:00 CDT Memoria l [place] fentaNYL ([facility]) 03-14 17:49: 00 No Route: IV, Drug form: INJ, ONCE, Stop date: 03/14/17 12:49:00 CDT Memoria l [place] succinylcho line ([facility]) 03-14 17:49: 00 No Route: IV, Drug form: INJ, ONCE, Stop date: 03/14/17 12:49:00 CDT Memoria l Eric fentaNYL ([facility]) 03-14 17:49: 00 No Route: IV, Drug form: INJ, ONCE, Stop date: 03/14/17 12:49:00 CDT Memoria l Eric succinylcho line ([facility]) 03-14 17:49: 00 No Route: IV, Drug form: INJ, ONCE, Stop date: 03/14/17 12:49:00 CDT Memoria l Eric lidocaine ([facility]) 03-14 17:44: 00 No Route: IV, Drug form: INJ, ONCE, Stop date: 03/14/17 12:44:00 CDT Memoria l Eric midazolam ([facility]) 03-14 17:44: 00 No Route: IV, Drug form: SOLN, ONCE, Stop date: 03/14/17 12:44:00 CDT Jerry phi Eric propofol ([facility]) 03-14 17:44: 00 No Route: IV, Drug form: INJ, ONCE, Stop date: 03/14/17 12:44:00 CDT Jerry phi [place] lidocaine (ANES) 03-14 17:44: 00 No Route: IV, Drug form: INJ, ONCE, Stop date: 03/14/17 12:44:00 CDT Jerry phi Eric midazolam ([facility]) 03-14 17:44: 00 No Route: IV, Drug form: SOLN, ONCE, Stop date: 03/14/17 12:44:00 CDT Jerry phi Eric propofol ([facility]) 03-14 17:44: 00 No Route: IV, Drug form: INJ, ONCE, Stop date: 03/14/17 12:44:00 CDT Jerry phi Reyes Isolyte S (PH 7.4) 1000 mL ([facility]) 03-14 16:40: 00 No Route: IV, Total Volume: 1,000, Start date: 03/14/17 11:40:00 CDT, Stop date: 03/14/17 12:40:00 CDT Jerry phi Eric Isolyte S (PH 7.4) 1000 mL ([facility]) 03-14 16:40: 00 No Route: IV, Total Volume: 1,000, Start date: 03/14/17 11:40:00 CDT, Stop date: 03/14/17 12:40:00 CDT Jerry Reyes Dilaudid 03-14 00:31: 00 No Notes: Same as: Dilaudid Jerry Reyes Dilaudid 03-14 00:31: 00 No Notes: Same as: Dilaudid Jerry Reyes Robaxin 03-13 07:00: 00 No Notes: (Same as:Robaxin ) Jerry Reyes Robaxin 03-13 07:00: 00 No Notes: (Same as:Robaxin ) Jerry Reyes Melatonin 3 MG Extended Release Tablet 03-13 04:15: 00 No Notes: (Same as: Melatonin) Jerry Reyes Melatonin 3 MG Extended Release Tablet 03-13 04:15: 00 No Notes: (Same as: Melatonin) Jerry Reyes Celebrex 03-13 02:00: 00 No Notes: NSAID. Please check indication . Not for seizure. (Same As: CeleBREX) Jerry Reyes Celebrex 03-13 02:00: 00 No Notes: NSAID. Please check indication . Not for seizure. (Same As: CeleBREX) Jerry Reyes Acetaminoph en 03-12 23:00: 00 No Notes: Max acetaminop hen 4000 mg/day (4 gm/day). (Same as: Tylenol Extra Strength) Jerry Reyes Acetaminoph en 03-12 23:00: 00 No Notes: Max acetaminop hen 4000 mg/day (4 gm/day). (Same as: Tylenol Extra Strength) Jerry Reyes Oxycodone Hydrochlori de 5 MG Oral Tablet 03-12 19:35: 00 No Notes: (Same as: Roxicodone ) Jerry Reyes Oxycodone Hydrochlori de 5 MG Oral Tablet 03-12 19:35: 00 No Notes: (Same as: Roxicodone ) Jerry Reyes Zofran 03-11 18:04: 00 No Notes: (Same as: Zofran) MEDICATION WASTE Product Size: 4 mg Product Wasted: ___ mg Jerry Reyes Zofran 03-11 18:04: 00 No Notes: (Same as: Zofran) MEDICATION WASTE Product Size: 4 mg Product Wasted: ___ mg Jerry Reyes Iohexol 03-11 16:52: 00 No Notes: (Same as:Omnipaq ue 350). WASTE: F/P - Black; E - Municipal Trash Bin Jerry Reyes Iohexol 03-11 16:52: 00 No Notes: (Same as:Omnipaq ue 350). WASTE: F/P - Black; E - Municipal Trash Bin Jerry Reyes sodium chloride 0.9% 1000 ml INJ 1,000 mL 03-11 04:00: 00 No 1,000 mL, Rate: 75 ml/hr, Infuse over: 13.3 hr, Route: IV, Dosing Weight 79.091 kg, Total Volume: 1,000, Start date: 03/10/17 23:00:00 CDT, Duration: 30 day, Stop date: 04/09/17 22:59:00 CDT Kamillafreddie Reyes sodium chloride 0.9% 1000 ml INJ 1,000 mL 03-11 04:00: 00 No 1,000 mL, Rate: 75 ml/hr, Infuse over: 13.3 hr, Route: IV, Dosing Weight 79.091 kg, Total Volume: 1,000, Start date: 03/10/17 23:00:00 CDT, Duration: 30 day, Stop date: 04/09/17 22:59:00 CDT Kamillafreddie Reyes Iohexol 03-11 01:02: 00 No 60 mL, Route: IVP, Drug Form: SOLN, Dosing Weight 79.091, kg, ONCALL, STAT, Start date: 03/10/17 20:02:00 CDT, Duration: 1 doses or times, Dose = 2.2ml/kg, Max dose = 100ml -- "To be infused by Radiology Staff ONLY" Jerry Reyes Iohexol 03-11 01:02: 00 No 60 mL, Route: IVP, Drug Form: SOLN, Dosing Weight 79.091, kg, ONCALL, STAT, Start date: 03/10/17 20:02:00 CDT, Duration: 1 doses or times, Dose = 2.2ml/kg, Max dose = 100ml -- "To be infused by Radiology Staff ONLY" [place] (Bolus) IV 03-10 23:14: 00 No 250 mL, 250 ml/hr, Infuse Over: 1 hr, Route: IV, 250, Drug form: INJ, ONCE, Priority: STAT, Dosing Weight 79.091 kg, Start date: 03/10/17 18:14:00 CDT, Duration: 1 doses or times, Stop date: 03/10/17 18:14:00 CDT Memfreddie phi NagyEric NS (Bolus) IV 03-10 23:14: 00 No 250 mL, 250 ml/hr, Infuse Over: 1 hr, Route: IV, 250, Drug form: INJ, ONCE, Priority: STAT, Dosing Weight 79.091 kg, Start date: 03/10/17 18:14:00 CDT, Duration: 1 doses or times, Stop date: 03/10/17 18:14:00 CDT Memfreddie phi Eric Sodium Chloride 0.9% IV 500 mL 03-10 21:35: 00 No 500 mL, Rate: 500 ml/hr, Infuse over: 1 hr, Route: IV, Dosing Weight 79.091 kg, Total Volume: 500, Start date: 03/10/17 16:35:00 CDT, Stop date: 03/10/17 19:00:00 CDT Memoria l [place] Sodium Chloride 0.9% IV 500 mL 03-10 21:35: 00 No 500 mL, Rate: 500 ml/hr, Infuse over: 1 hr, Route: IV, Dosing Weight 79.091 kg, Total Volume: 500, Start date: 03/10/17 16:35:00 CDT, Stop date: 03/10/17 19:00:00 CDT Memoria l [place] pantoprazol e 80 mg + sodium chloride 0.9% INJ 100 mL 03-10 17:26: 00 No 100 mL, Rate: 10 ml/hr, Infuse over: 10 hr, Route: IVPB, Dosing Weight 79.091 kg, Total Volume: 100, Infuse at 8 mg / hr for 72 hours for GI bleeding, Start date: 03/10/17 12:26:00 CDT, Duration: 72 hr, Stop date: 03/13/17 12:25:00 CDT Memoria l [place] pantoprazol e 80 mg + sodium chloride 0.9% INJ 100 mL 03-10 17:26: 00 No 100 mL, Rate: 10 ml/hr, Infuse over: 10 hr, Route: IVPB, Dosing Weight 79.091 kg, Total Volume: 100, Infuse at 8 mg / hr for 72 hours for GI bleeding, Start date: 03/10/17 12:26:00 CDT, Duration: 72 hr, Stop date: 03/13/17 12:25:00 CDT Memfreddie Reyes Methadone 03-10 17:00: 00 No Notes: (Same as: Dolophine) Memoria phi Reyes Ketorolac 03-10 17:00: 00 No 4 days MEDICATION WASTE Product Size: 30 mg Product Wasted: ___ mg Jerry Reyes Methadone 03-10 17:00: 00 No Notes: (Same as: Dolophine) Memoria phi Reyes Ketorolac 03-10 17:00: 00 No 4 days MEDICATION WASTE Product Size: 30 mg Product Wasted: ___ mg Memoria phi Reyes Valium 03-10 16:39: 00 No Notes: (Same as: Valium) WASTE: F/P - Black; E - White/Blue Memfreddie Reyes Valium 03-10 16:39: 00 No Notes: (Same as: Valium) WASTE: F/P - Black; E - White/Blue Memfreddie Reeys Oxycodone Hydrochlori de 5 MG Oral Tablet 03-10 13:37: 00 No Notes: (Same as: Roxicodone ) Memoria phi Reyes Oxycodone Hydrochlori de 5 MG Oral Tablet 03-10 13:37: 00 No Notes: (Same as: Roxicodone ) Memoria phi Reyes Hydromorpho ne 03-10 08:11: 00 No Notes: Same as: Dilaudid Memoria phi Reyes Hydromorpho ne 03-10 08:11: 00 No Notes: Same as: Dilaudid Memoria phi Reyes glycopyrrol ate (ANES) 03-10 00:49: 00 No Route: IV, Drug form: INJ, ONCE, Stop date: 03/09/17 19:49:00 CDT Memfreddie Reyes neostigmine (ANES) 03-10 00:49: 00 No Route: IV, Drug form: INJ, ONCE, Stop date: 03/09/17 19:49:00 CDT Memoria phi Reyes glycopyrrol ate (ANES) 03-10 00:49: 00 No Route: IV, Drug form: INJ, ONCE, Stop date: 03/09/17 19:49:00 CDT Memfreddie Reyes neostigmine (ANES) 0 03-10 00:49: 00 No Route: IV, Drug form: INJ, ONCE, Stop date: 03/09/17 19:49:00 CDT Memoria phi Reyes ondansetron (ANES) 03-10 00:44: 00 No Route: IV, Drug form: INJ, ONCE, Stop date: 03/09/17 19:44:00 CDT Memoria l Eric ondansetron (ANES) 03-10 00:44: 00 No Route: IV, Drug form: INJ, ONCE, Stop date: 03/09/17 19:44:00 CDT Memoria l [place] norepinephr ine (ANES) 03-10 00:39: 00 No Route: IV, Drug form: INJ, ONCE, Stop date: 03/09/17 19:39:00 CDT Memoria l [place] norepinephr ine (ANES) [id number] 00:39: 00 No Route: IV, Drug form: INJ, ONCE, Stop date: 03/09/17 19:39:00 CDT Memoria l Eric fentaNYL (ANES) 0 03-10 00:29: 00 No Route: IV, Drug form: INJ, ONCE, Stop date: 03/09/17 19:29:00 CDT Memoria l [place] hydromorpho ne (ANES) [id number] 03-10 00:29: 00 No Route: IV, Drug form: INJ, ONCE, Stop date: 03/09/17 19:29:00 CDT Memoria l Eric propofol (ANES) [id number] 00:29: 00 No Route: IV, Drug form: INJ, ONCE, Stop date: 03/09/17 19:29:00 CDT Memoria l [place] fentaNYL (ANES) [id number] 03-10 00:29: 00 No Route: IV, Drug form: INJ, ONCE, Stop date: 03/09/17 19:29:00 CDT Memoria l Eric hydromorpho ne (ANES) [id number] 03-10 00:29: 00 No Route: IV, Drug form: INJ, ONCE, Stop date: 03/09/17 19:29:00 CDT Memoria phi Reyes propofol ([facility]) 03-10 00:29: 00 No Route: IV, Drug form: INJ, ONCE, Stop date: 03/09/17 19:29:00 CDT Memoria l Eric phenylephri ne ([facility]) 03-10 00:19: 00 No Route: IV, Drug form: INJ, ONCE, Stop date: 03/09/17 19:19:00 CDT Memoria l [place] phenylephri ne ([facility]) 03-10 00:19: 00 No Route: IV, Drug form: INJ, ONCE, Stop date: 03/09/17 19:19:00 CDT Memoria phi Reyes esmolol ([facility]) 03-10 00:09: 00 No Route: IV, Drug form: INJ, ONCE, Stop date: 03/09/17 19:09:00 CDT Memoria phi eRyes esmolol ([facility]) 03-10 00:09: 00 No Route: IV, Drug form: INJ, ONCE, Stop date: 03/09/17 19:09:00 CDT Memoria phi Reyes hydromorpho ne ([facility]) 03-09 23:59: 00 No Route: IV, Drug form: INJ, ONCE, Stop date: 03/09/17 18:59:00 CDT Memoria l [place] hydromorpho ne ([facility]) 03-09 23:59: 00 No Route: IV, Drug form: INJ, ONCE, Stop date: 03/09/17 18:59:00 CDT Memoria l Eric Hydromorpho ne 03-09 23:40: 00 No Notes: Same as: Dilaudid Memoria phi Reyes Naloxone 03-09 23:40: 00 No Notes: Same as Narcan Memoria phi Reyes Oxycodone 03-09 23:40: 00 No Notes: (Same as: Roxicodone ) Memoria phi Reyes Promethazin e 03-09 23:40: 00 No Notes: Do not give IV push. (Same as: Phenergan) Memoria phi Reyes Ondansetron 03-09 23:40: 00 No Notes: (Same as: Zofran) MEDICATION WASTE Product Size: 4 mg Product Wasted: ___ mg Memfreddie Reyes Flumazenil 03-09 23:40: 00 No Notes: (Same as: Romazicon) Memoria l Eric Hydromorpho ne 03-09 23:40: 00 No Notes: Same as: Dilaudid Memoria phi Reyes Naloxone 03-09 23:40: 00 No Notes: Same as Narcan Memoria phi Reyes Oxycodone 03-09 23:40: 00 No Notes: (Same as: Roxicodone ) Memoria phi Reyes Promethazin e 03-09 23:40: 00 No Notes: Do not give IV push. (Same as: Phenergan) Memfreddie Reyes Ondansetron 03-09 23:40: 00 No Notes: (Same as: Zofran) MEDICATION WASTE Product Size: 4 mg Product Wasted: ___ mg Memfreddie Reyes Flumazenil 03-09 23:40: 00 No Notes: (Same as: Romazicon) Memfreddie Reyes ceFAZolin (ANES) 03-09 23:34: 00 No Route: IV, Drug form: INJ, ONCE, Stop date: 03/09/17 18:34:00 CDT Memfreddie Reyes famotidine (ANES) 03-09 23:34: 00 No Route: IV, Drug form: INJ, ONCE, Stop date: 03/09/17 18:34:00 CDT Memoria phi Reyes phenylephri ne (ANES) 03-09 23:34: 00 No Route: IV, Drug form: INJ, ONCE, Stop date: 03/09/17 18:34:00 CDT Memoria phi Reyes ceFAZolin (ANES) 03-09 23:34: 00 No Route: IV, Drug form: INJ, ONCE, Stop date: 03/09/17 18:34:00 CDT Memoria l Eric famotidine (ANES) 03-09 23:34: 00 No Route: IV, Drug form: INJ, ONCE, Stop date: 03/09/17 18:34:00 CDT Memoria l [place] phenylephri ne (ANES) 03-09 23:34: 00 No Route: IV, Drug form: INJ, ONCE, Stop date: 03/09/17 18:34:00 CDT Memoria l [place] propofol (ANES) 03-09 23:23: 00 No Route: IV, Drug form: INJ, ONCE, Stop date: 03/09/17 18:23:00 CDT Memoria l [place] lidocaine (ANES) 03-09 23:23: 00 No Route: IV, Drug form: INJ, ONCE, Stop date: 03/09/17 18:23:00 CDT Memoria l [place] fentaNYL (ANES) 03-09 23:23: 00 No Route: IV, Drug form: INJ, ONCE, Stop date: 03/09/17 18:23:00 CDT Memoria l [place] rocuronium (ANES) 03-09 23:23: 00 No Route: IV, Drug form: INJ, ONCE, Stop date: 03/09/17 18:23:00 CDT Memoria l [place] propofol (ANES) 03-09 23:23: 00 No Route: IV, Drug form: INJ, ONCE, Stop date: 03/09/17 18:23:00 CDT Memoria l [place] lidocaine (ANES) 03-09 23:23: 00 No Route: IV, Drug form: INJ, ONCE, Stop date: 03/09/17 18:23:00 CDT Memoria l Eric fentaNYL (ANES) 03-09 23:23: 00 No Route: IV, Drug form: INJ, ONCE, Stop date: 03/09/17 18:23:00 CDT Memoria l Eric rocuronium (ANES) 03-09 23:23: 00 No Route: IV, Drug form: INJ, ONCE, Stop date: 03/09/17 18:23:00 CDT Memoria l [place] acetaminoph en (ANES) ([facility]) 03-09 23:21: 00 No Route: IV, Drug form: INJ, Start date: 03/09/17 18:21:00 CDT, Stop date: 03/09/17 19:21:00 CDT Memoria l [place] acetaminoph en (ANES) ([facility]) 03-09 23:21: 00 No Route: IV, Drug form: INJ, Start date: 03/09/17 18:21:00 CDT, Stop date: 03/09/17 19:21:00 CDT Memoria l [place] midazolam ([facility]) 03-09 23:08: 00 No Route: IV, Drug form: SOLN, ONCE, Stop date: 03/09/17 18:08:00 CDT Memoria l Eric midazolam ([facility]) 03-09 23:08: 00 No Route: IV, Drug form: SOLN, ONCE, Stop date: 03/09/17 18:08:00 CDT Memoria l [place] LR 1000 mL INJ ([facility]) 03-09 22:35: 00 No Route: IV, Total Volume: 1,000, Start date: 03/09/17 17:35:00 CDT, Stop date: 03/09/17 18:35:00 CDT Memoria l [place] LR 1000 mL INJ ([facility]) 03-09 22:35: 00 No Route: IV, Total Volume: 1,000, Start date: 03/09/17 17:35:00 CDT, Stop date: 03/09/17 18:35:00 CDT Memoria l Eric Morphine 03-09 20:00: 00 No Notes: (Same as:MORPhin e Sulfate) Memoria l Eric Morphine 03-09 20:00: 00 No Notes: (Same as:MORPhin e Sulfate) Memoria l [place] Protonix 03-09 17:58: 00 No 80 mg, Route: IV, ONCE, Dosing Weight 79.091, kg, Start date: 03/09/17 12:58:00 CDT, Stop date: 03/09/17 12:58:00 CDT Memoria l Eric Protonix 03-09 17:58: 00 No 80 mg, Route: IV, ONCE, Dosing Weight 79.091, kg, Start date: 03/09/17 12:58:00 CDT, Stop date: 03/09/17 12:58:00 CDT Jerry yip Eric pantoprazol e 80 mg + sodium chloride 0.9% INJ 100 mL 03-09 17:56: 00 No 100 mL, Rate: 10 ml/hr, Infuse over: 10 hr, Route: IVPB, Dosing Weight 79.091 kg, Total Volume: 100, Infuse at 8 mg / hr for 72 hours for GI bleeding, Start date: 03/09/17 12:56:00 CDT, Duration: 72 hr, Stop date: 03/12/17 12:55:00 CDT Jerry yip Eric pantoprazol e 80 mg + sodium chloride 0.9% INJ 100 mL 03-09 17:56: 00 No 100 mL, Rate: 10 ml/hr, Infuse over: 10 hr, Route: IVPB, Dosing Weight 79.091 kg, Total Volume: 100, Infuse at 8 mg / hr for 72 hours for GI bleeding, Start date: 03/09/17 12:56:00 CDT, Duration: 72 hr, Stop date: 03/12/17 12:55:00 CDT Jerry Reyes remove patch 03-08 02:00: 00 No Notes: Remove patch 12 hours after applicatio n each day. Jerry Reyes remove patch 03-08 02:00: 00 No Notes: Remove patch 12 hours after applicatio n each day. Jerry Reyes Tramadol 03-08 00:42: 00 No Notes: Not to exceed 400mg/day. (Same As: Ultram) Jerry Reyes Tramadol 03-08 00:42: 00 No Notes: Not to exceed 400mg/day. (Same As: Ultram) Jerry Reyes Tramadol 03-07 19:27: 00 No Notes: Not to exceed 400mg/day. (Same As: Ultram) Jerry Reyes Tramadol 03-07 19:27: 00 No Notes: Not to exceed 400mg/day. (Same As: Ultram) Jerry Reyes Lidocaine Hydrochlori de 0.05 MG/MG Transdermal Patch [Lidoderm] 03-07 14:00: 00 No Notes: Apply only once for up to 12 hours in a 24-hour period (12 hours on and 12 hours off). (Same as: Lidoderm) "Remove old patch before applicatio n of new patch" Jerry Reyes Lidocaine Hydrochlori de 0.05 MG/MG Transdermal Patch [Lidoderm] 03-07 14:00: 00 No Notes: Apply only once for up to 12 hours in a 24-hour period (12 hours on and 12 hours off). (Same as: Lidoderm) "Remove old patch before applicatio n of new patch" Jerry Reyes Dilaudid 03-07 09:11: 00 No Notes: Same as: Dilaudid Jerry Reyes Dilaudid 03-07 09:11: 00 No Notes: Same as: Dilaudid Jerry phi Reyes E.E.S.-400 03-07 05:00: 00 No Notes: (Same as: E.E.S.-400 ) Jerry Reyes Erythromyci n 250 MG Enteric Coated Tablet 03-07 05:00: 00 No 250 mg, 1 tab, Route: PO, Q6H, Dosing Weight 79.091, kg, Start date: 03/07/17 0:00:00 CDT, Duration: 30 day, Stop date: 04/05/17 18:00:00 CDT Jerry Nagyann Robaxin 03-07 05:00: 00 No Notes: (Same as:Robaxin ) Jerry Nagyann E.E.S.-400 03-07 05:00: 00 No Notes: (Same as: E.E.S.-400 ) Jerry Reyes Erythromyci n 250 MG Enteric Coated Tablet 03-07 05:00: 00 No 250 mg, 1 tab, Route: PO, Q6H, Dosing Weight 79.091, kg, Start date: 03/07/17 0:00:00 CDT, Duration: 30 day, Stop date: 04/05/17 18:00:00 CDT Kamillafreddie Nagyann Robaxin 03-07 05:00: 00 No Notes: (Same as:Robaxin ) Jerry Reyes Erythromyci n 03-07 02:00: 00 No Notes: (Same as: erythromyc in lactobiona te) Jerry Reyes Erythromyci n 03-07 02:00: 00 No Notes: (Same as: erythromyc in lactobiona te) Jerry Reyes D5W 1/2NS + KCL 20mEq/L 1000ml (Premix) 1,000 mL 03-07 01:47: 00 No Notes: PREMIX IV - Do Not Alter WASTE: F/P - Sink; E - Municipal Trash Bin Jerry Reyes D5W 1/2NS + KCL 20mEq/L 1000ml (Premix) 1,000 mL 03-07 01:47: 00 No Notes: PREMIX IV - Do Not Alter WASTE: F/P - Sink; E - Municipal Trash Bin Jerry Reyes Dilaudid 03-07 01:34: 00 No Notes: Same as: Dilaudid Jerry Reyes Dilaudid 03-07 01:34: 00 No Notes: Same as: Dilaudid Jerry Reyes Robaxin 03-07 01:31: 00 No Notes: (Same as:Robaxin ) Jerry Reyes Robaxin 03-07 01:31: 00 No Notes: (Same as:Robaxin ) Jerry Reyes Tramadol 03-06 08:40: 00 No Notes: Not to exceed 400mg/day. (Same As: Ultram) Jerry Nagyann Tramadol 03-06 08:40: 00 No Notes: Not to exceed 400mg/day. (Same As: Ultram) Jerry yip [place] Isolyte S PH-7.4 (Bolus) IV 03-06 00:03: 00 No Notes: (Same as: Isolyte S PH 7.4) Memoria l Eric Isolyte S PH-7.4 (Bolus) IV 03-06 00:03: 00 No Notes: (Same as: Isolyte S PH 7.4) Kamillaoria l Eric Isolyte S PH-7.4 (Bolus) IV 03-05 21:39: 00 No Notes: (Same as: Isolyte S PH 7.4) Jerry Reyes Isolyte S PH-7.4 (Bolus) IV 03-05 21:39: 00 No Notes: (Same as: Isolyte S PH 7.4) Jerry Reyes D5W 1/2NS 1,000 mL 03-05 21:38: 00 No 1,000 mL, Rate: 75 ml/hr, Infuse over: 13.3 hr, Route: IV, Dosing Weight 79.091 kg, Total Volume: 1,000, Start date: 03/05/17 16:38:00 CDT, Duration: 30 day, Stop date: 04/04/17 16:37:00 CDT Jerry Reyes D5W 1/2NS 1,000 mL 03-05 21:38: 00 No 1,000 mL, Rate: 75 ml/hr, Infuse over: 13.3 hr, Route: IV, Dosing Weight 79.091 kg, Total Volume: 1,000, Start date: 03/05/17 16:38:00 CDT, Duration: 30 day, Stop date: 04/04/17 16:37:00 [facility] 17:00: 00 No Notes: Infuse over 15 minutes Do not exceed 4gm/day of acetaminop hen MEDICATION WASTE Product Size: 1000 mg Product Wasted: ___ mg Jerry Reyes Methadone 03-05 17:00: 00 No Notes: (Same as: Dolophine) Jerry yip Eric ketOROLAC 30 mg/mL injectable solution 03-05 17:00: 00 No 4 days MEDICATION WASTE Product Size: 30 mg Product Wasted: ___ mg Jerry Reyes Metoclopram maverick 10 MG Oral Tablet [Reglan] 03-05 17:00: 00 No 10 mg, Route: PO, Drug form: TAB, Q6H, Dosing Weight 79.091, kg, Start date: 03/05/17 12:00:00 CDT, Duration: 30 day, Stop date: 04/04/17 6:00:00 CDT [facility] 03-05 17:00: 00 No Notes: Infuse over 15 minutes Do not exceed 4gm/day of acetaminop hen MEDICATION WASTE Product Size: 1000 mg Product Wasted: ___ mg Jerry Reyes Methadone 03-05 17:00: 00 No Notes: (Same as: Dolophine) Jerry Reyes ketOROLAC 30 mg/mL injectable solution 03-05 17:00: 00 No 4 days MEDICATION WASTE Product Size: 30 mg Product Wasted: ___ mg Jerry Reyes Metoclopram maverick 10 MG Oral Tablet [Reglan] 03-05 17:00: 00 No 10 mg, Route: PO, Drug form: TAB, Q6H, Dosing Weight 79.091, kg, Start date: 03/05/17 12:00:00 CDT, Duration: 30 day, Stop date: 04/04/17 6:00:00 CDT Jerry Reyes gabapentin 03-05 16:49: 00 No Notes: (Same as: Neurontin) Jerry Reyes gabapentin 03-05 16:49: 00 No Notes: (Same as: Neurontin) Jerry Reyes Erythromyci n 03-05 15:00: 00 No Notes: (Same as: erythromyc in base) Give With Food "Do Not Crush" Jerry Reyes Erythromyci n 03-05 15:00: 00 No Notes: (Same as: erythromyc in base) Give With Food "Do Not Crush" Jerry Reyes Reglan 03-05 14:40: 00 No Notes: (Same as: Reglan) Jerry Reyes Reglan 03-05 14:40: 00 No Notes: (Same as: Reglan) Jerry Reyes potassium phosphate 03-05 14:30: 00 No Notes: (Same as: K Phosphate. ) 1 mMol phoshate has 1.47 mEq potassium Infuse over 4 hours Jerry Reyes potassium phosphate 03-05 14:30: 00 No Notes: (Same as: K Phosphate. ) 1 mMol phoshate has 1.47 mEq potassium Infuse over 4 hours Memoria l Eric sodium phosphate 03-05 13:35: 00 No 30 mmol, Route: IVPB, ONCE, Dosing Weight 79.091, kg, Start date: 03/05/17 8:35:00 CDT, Stop date: 03/05/17 8:35:00 CDT Jerry Reyes sodium phosphate 03-05 13:35: 00 No 30 mmol, Route: IVPB, ONCE, Dosing Weight 79.091, kg, Start date: 03/05/17 8:35:00 CDT, Stop date: 03/05/17 8:35:00 CDT Jerry Reyes Morphine 03-05 13:33: 00 No Notes: (Same as:MORPhin e Sulfate) Jerry Reyes Morphine 03-05 13:33: 00 No Notes: (Same as:MORPhin e Sulfate) Jerry Reyes Fentanyl 03-05 08:54: 00 No Notes: (Same as: Sublimaze) Preservati ve free. Jerry Reyes Fentanyl 03-05 08:54: 00 No Notes: (Same as: Sublimaze) Preservati ve free. Jerry Reyes Zofran 03-05 08:40: 00 No Notes: (Same as: Evan) MEDICATION WASTE Product Size: 4 mg Product Wasted: ___ mg Jerry Reyes Zofran 03-05 08:40: 00 No Notes: (Same as: Zofran) MEDICATION WASTE Product Size: 4 mg Product Wasted: ___ mg Jerry Reyes Isolyte S PH-7.4 (Bolus) IV 03-05 08:24: 00 No Notes: (Same as: Isolyte S PH7.4) Jerry Reyes Isolyte S PH-7.4 (Bolus) IV 03-05 08:24: 00 No Notes: (Same as: Isolyte S PH7.4) Jerry Reyes Zofran 03-05 07:31: 00 No Notes: (Same as: Zofran) MEDICATION WASTE Product Size: 4 mg Product Wasted: ___ mg Jerry Reyes Zofran 03-05 07:31: 00 No Notes: (Same as: Zofran) MEDICATION WASTE Product Size: 4 mg Product Wasted: ___ mg Jerry Reyes Tramadol 03-04 17:00: 00 No Notes: Not to exceed 400mg/day. (Same As: Ultram) Jerry Reyes Tramadol 03-04 17:00: 00 No Notes: Not to exceed 400mg/day. (Same As: Ultram) Jerry Reyes pneumococca l capsular polysacchar maverick type 1 vaccine / pneumococca l capsular polysacchar maverick type 10A vaccine / pneumococca l capsular polysacchar maverick type 11A vaccine / pneumococca l capsular polysacchar maverick type 12F vaccine / pneumococca l capsular polysacchar 03-04 14:00: 00 No Notes: (Same as: Pneumovax 23) Refrigerat e Jerry Reyes Enoxaparin 03-04 14:00: 00 No Notes: (Same as: Lovenox) Jerry Reyes potassium phosphate-s odium phosphate 03-04 14:00: 00 No Notes: (Same as: Phos-NaK) Each 1.5 gm pkt has 250mg phosphorou s. Mix w/2.5oz water and stir. Jerry Reyes gabapentin 100 MG Oral Capsule 03-04 14:00: 00 No Notes: (Same as: Neurontin) Jerry Reyes Aspirin 325 MG Oral Tablet 03-04 14:00: 00 No Notes: Take with food. Jerry Reyes potassium phosphate 03-04 14:00: 00 No 1.45 gm, Route: PO, BID, Dosing Weight 79.2, kg, Start date: 03/04/17 9:00:00 CDT, Duration: 30 day, Stop date: 04/02/17 17:00:00 CDT Jerry Reyes pneumococca l capsular polysacchar maverick type 1 vaccine / pneumococca l capsular polysacchar maverick type 10A vaccine / pneumococca l capsular polysacchar maverick type 11A vaccine / pneumococca l capsular polysacchar maverick type 12F vaccine / pneumococca l capsular polysacchar 03-04 14:00: 00 No Notes: (Same as: Pneumovax 23) Refrigerat e Jerry Reyes Enoxaparin 03-04 14:00: 00 No Notes: (Same as: Lovenox) Memfreddie Nagyann potassium phosphate-s odium phosphate 03-04 14:00: 00 No Notes: (Same as: Phos-NaK) Each 1.5 gm pkt has 250mg phosphorou s. Mix w/2.5oz water and stir. Memfreddie Nagyann gabapentin 100 MG Oral Capsule 03-04 14:00: 00 No Notes: (Same as: Neurontin) Memfreddie Reyes Aspirin 325 MG Oral Tablet 03-04 14:00: 00 No Notes: Take with food. Memfreddie Reyes potassium phosphate 03-04 14:00: 00 No 1.45 gm, Route: PO, BID, Dosing Weight 79.2, kg, Start date: 03/04/17 9:00:00 CDT, Duration: 30 day, Stop date: 04/02/17 17:00:00 CDT Memfreddie Reyes Tramadol 03-04 05:00: 00 No Notes: Not to exceed 400mg/day. (Same As: Ultram) Memfreddie Nagyann Acetaminoph en 03-04 05:00: 00 No 1,000 mg, Route: PO, Q6H, Dosing Weight 79.2, kg, Start date: 03/04/17 0:00:00 CDT, Duration: 30 day, Stop date: 04/02/17 18:00:00 CDT Memfreddie l [place] gabapentin 100 MG Oral Capsule 03-04 05:00: 00 No Notes: (Same as: Neurontin) Memoria l [place] Tramadol 03-04 05:00: 00 No Notes: Not to exceed 400mg/day. (Same As: Ultram) Memoria l [place] Acetaminoph en 03-04 05:00: 00 No 1,000 mg, Route: PO, Q6H, Dosing Weight 79.2, kg, Start date: 03/04/17 0:00:00 CDT, Duration: 30 day, Stop date: 04/02/17 18:00:00 CDT Jerry Reyes gabapentin 100 MG Oral Capsule 03-04 05:00: 00 No Notes: (Same as: Neurontin) Jerry Reyes Zofran 03-04 03:32: 00 No Notes: (Same as: Zofran) MEDICATION WASTE Product Size: 4 mg Product Wasted: ___ mg Jerry Reyes Zofran 03-04 03:32: 00 No Notes: (Same as: Zofran) MEDICATION WASTE Product Size: 4 mg Product Wasted: ___ mg Jerry Reyes Oxycodone Hydrochlori de 5 MG Oral Tablet 03-04 02:22: 00 No Notes: (Same as: Roxicodone ) Jerry Reyes Oxycodone Hydrochlori de 5 MG Oral Tablet 03-04 02:22: 00 No Notes: (Same as: Roxicodone ) Memfreddie Reyes Risperidone 03-04 02:00: 00 No Notes: (Same as: Risperdal) Jerry Reyes chlorhexidi ne gluconate 1.2 MG/ML Mouthwash 03-04 02:00: 00 No Notes: (Same As: Peridex) Jerry Reyes Risperidone 03-04 02:00: 00 No Notes: (Same as: Risperdal) Jerry Reyes chlorhexidi ne gluconate 1.2 MG/ML Mouthwash 03-04 02:00: 00 No Notes: (Same As: Peridex) Memfreddie Reyes Methadone 03-03 23:00: 00 No Notes: (Same as: Dolophine) Memfreddie Reyes Methadone 03-03 23:00: 00 No Notes: (Same as: Dolophine) Memoria phi Reyes Dilaudid 03-03 21:53: 00 No Notes: Same as: Dilaudid Memoria phi Reyes Dilaudid 03-03 21:53: 00 No Notes: Same as: Dilaudid Memoria phi Reyes Seroquel 03-03 21:49: 00 No Notes: (Same as: SEROquel) Jerry Reyes Seroquel 03-03 21:49: 00 No Notes: (Same as: SEROquel) Jerry Reyes calcium chloride (ANES) 03-03 19:46: 00 No Route: IV, Drug form: INJ, ONCE, Stop date: 03/03/17 14:46:00 CDT Memfreddie Nagyann calcium chloride (ANES) 03-03 19:46: 00 No Route: IV, Drug form: INJ, ONCE, Stop date: 03/03/17 14:46:00 CDT Memfreddie Nagyann hydromorpho ne (ANES) 03-03 18:06: 00 No Route: IV, Drug form: INJ, ONCE, Stop date: 03/03/17 13:06:00 CDT Memfreddie Nagyann hydromorpho ne (ANES) 03-03 18:06: 00 No Route: IV, Drug form: INJ, ONCE, Stop date: 03/03/17 13:06:00 CDT Memfreddie Reyes methylene blue (ANES) 03-03 17:31: 00 No Route: IV, Drug form: INJ, ONCE, Stop date: 03/03/17 12:31:00 CDT Memfreddie Reyes methylene blue (ANES) 03-03 17:31: 00 No Route: IV, Drug form: INJ, ONCE, Stop date: 03/03/17 12:31:00 CDT Memfreddie Nagyann ocular lubricant 03-03 17:00: 00 No Notes: (Same as: Lacri-Lube , Duratears Naturale, Artificial Tears, and Tears Again ) Jerry Nagyann ocular lubricant 03-03 17:00: 00 No Notes: (Same as: Lacri-Lube , Duratears Naturale, Artificial Tears, and Tears Again ) Jerry Nagyann calcium gluconate (ANES) 03-03 16:46: 00 No Route: IV, Drug form: INJ, ONCE, Stop date: 03/03/17 11:46:00 CDT Memfreddie Nagyann calcium gluconate (ANES) 03-03 16:46: 00 No Route: IV, Drug form: INJ, ONCE, Stop date: 03/03/17 11:46:00 CDT Memfreddie Reyes chlorhexidi ne gluconate 1.2 MG/ML Mouthwash 03-03 16:11: 00 No Notes: (Same As: Peridex) Jerry Reyes chlorhexidi ne gluconate 1.2 MG/ML Mouthwash 03-03 16:11: 00 No Notes: (Same As: Peridex) Jerry Reyes phenylephri ne (ANES) 03-03 15:56: 00 No Route: IV, Drug form: INJ, ONCE, Stop date: 03/03/17 10:56:00 CDT Memfreddie Nagyann phenylephri ne (ANES) 03-03 15:56: 00 No Route: IV, Drug form: INJ, ONCE, Stop date: 03/03/17 10:56:00 CDT Memfreddie Reyes ceFAZolin (ANES) 03-03 15:51: 00 No Route: IV, Drug form: INJ, ONCE, Stop date: 03/03/17 10:51:00 CDT Memfreddie Nagyann ceFAZolin (ANES) 03-03 15:51: 00 No Route: IV, Drug form: INJ, ONCE, Stop date: 03/03/17 10:51:00 CDT Memfreddie Reyes midazolam (ANES) 03-03 15:41: 00 No Route: IV, Drug form: SOLN, ONCE, Stop date: 03/03/17 10:41:00 CDT Memfreddie Nagyann rocuronium (ANES) 03-03 15:41: 00 No Route: IV, Drug form: INJ, ONCE, Stop date: 03/03/17 10:41:00 CDT Memfreddie Nagyann fentaNYL (ANES) 03-03 15:41: 00 No Route: IV, Drug form: INJ, ONCE, Stop date: 03/03/17 10:41:00 CDT Memfreddie Nagyann midazolam (ANES) 03-03 15:41: 00 No Route: IV, Drug form: SOLN, ONCE, Stop date: 03/03/17 10:41:00 CDT Memfreddie Nagyann rocuronium ([facility]) 03-03 15:41: 00 No Route: IV, Drug form: INJ, ONCE, Stop date: 03/03/17 10:41:00 CDT Memfreddie l [place] fentaNYL (ANES) 03-03 15:41: 00 No Route: IV, Drug form: INJ, ONCE, Stop date: 03/03/17 10:41:00 CDT Memfreddie yip Eric metroNIDAZO LE (ANES) ([facility]) 03-03 15:32: 00 No Route: IV, Drug form: INJ, Start date: 03/03/17 10:32:00 CDT, Stop date: 03/03/17 11:32:00 CDT Memfreddie l [place] metroNIDAZO LE (ANES) ([facility]) 03-03 15:32: 00 No Route: IV, Drug form: INJ, Start date: 03/03/17 10:32:00 CDT, Stop date: 03/03/17 11:32:00 CDT Memoria l Eric acetaminoph en (ANES) ([facility]) 03-03 15:20: 00 No Route: IV, Drug form: INJ, Start date: 03/03/17 10:20:00 CDT, Stop date: 03/03/17 11:20:00 CDT Memoria l Eric acetaminoph en (ANES) ([facility]) 03-03 15:20: 00 No Route: IV, Drug form: INJ, Start date: 03/03/17 10:20:00 CDT, Stop date: 03/03/17 11:20:00 CDT Memoria l Eric sodium chloride 3% INJ 500 mL 03-03 14:11: 00 No Notes: " Memoria l Eric sodium chloride 3% INJ 500 mL 03-03 14:11: 00 No Notes: " Memoria l Eric Isolyte S (PH 7.4) 1000 mL (ANES) 03-03 14:08: 00 No Route: IV, Total Volume: 1,000, Start date: 03/03/17 9:08:00 CDT, Stop date: 03/03/17 10:08:00 CDT Memfreddie Reyes Isolyte S (PH 7.4) 1000 mL (ANES) 03-03 14:08: 00 No Route: IV, Total Volume: 1,000, Start date: 03/03/17 9:08:00 CDT, Stop date: 03/03/17 10:08:00 CDT Memfreddie Reyes chlorhexidi ne gluconate 1.2 MG/ML Mouthwash 03-03 14:00: 00 No Notes: (Same As: Peridex) Memfreddie Nagyann Famotidine 03-03 14:00: 00 No Notes: (Same as: Pepcid) Can be dilute in 5-10cc NS IVP: Slow IV push over at least 2 minutes. Memfreddie Reyes Aspirin 325 MG Oral Tablet 03-03 14:00: 00 No Notes: Take with food. Jerry Reyes chlorhexidi ne gluconate 1.2 MG/ML Mouthwash 03-03 14:00: 00 No Notes: (Same As: Peridex) Memfreddie Nagyann Famotidine 03-03 14:00: 00 No Notes: (Same as: Pepcid) Can be dilute in 5-10cc NS IVP: Slow IV push over at least 2 minutes. Memfreddie Reyes Aspirin 325 MG Oral Tablet 03-03 14:00: 00 No Notes: Take with food. Memoria l [place] Isolyte S (PH 7.4) 1000 mL 1,000 mL 03-03 13:22: 00 No Notes: (Same as: Isolyte S PH 7.4) Memoria l Eric Isolyte S (PH 7.4) 1000 mL 1,000 mL 03-03 13:22: 00 No Notes: (Same as: Isolyte S PH 7.4) Memoria l Eric ocular lubricant 03-03 11:00: 00 No Notes: (Same as: Lacri-Lube , Duratears Naturale, Artificial Tears, and Tears Again ) Memoria l [place] ocular lubricant 03-03 11:00: 00 No Notes: (Same as: Lacri-Lube , Duratears Naturale, Artificial Tears, and Tears Again ) Jerry Reyes Fentanyl 03-03 10:54: 00 No 1,000 microgram, 20 mL, Rate: Titrate, Start Dose: 50 microgram/ hr, Titration: 25 microgram/ hour every 15 minutes, Goal(s): RASS 0, Max Dose: 300 microgram/ hr, Route: IV, Dosing Weight 77.273 kg, Total Volume: 20, Start date: 03/03/17 5:54:00 CDT, Dur... Jerry Reyes Fentanyl 03-03 10:54: 00 No 1,000 microgram, 20 mL, Rate: Titrate, Start Dose: 50 microgram/ hr, Titration: 25 microgram/ hour every 15 minutes, Goal(s): RASS 0, Max Dose: 300 microgram/ hr, Route: IV, Dosing Weight 77.273 kg, Total Volume: 20, Start date: 03/03/17 5:54:00 CDT, Dur... Jerry Nagyann Plasma-Lyte A PH-7.4 1000 ml INJ 1,000 mL 03-03 10:53: 00 No Notes: WASTE: F/P - Sink; E - Municipal Trash Bin Jerry Reyes Plasma-Lyte A PH-7.4 1000 ml INJ 1,000 mL 03-03 10:53: 00 No Notes: WASTE: F/P - Sink; E - Municipal Trash Bin Jerry Nagyann chlorhexidi ne gluconate 1.2 MG/ML Mouthwash 03-03 10:46: 00 No Notes: (Same As: Peridex) Jerry Reyes propofol INJ 1,000 mg 03-03 10:46: 00 No Notes: If Diprivan - change bottle & tubing every 12 hr Per state nursing law propofol can only be given by a nurse if patient is intubated or being intubated (unless the nurse is a ULTRASONIC HAND SOLDERER). Same as: Diprivan Jerry Reyes Saline Flush 0.9% 03-03 10:46: 00 No Notes: (Same as: BD Posiflush) Jerry Reyes chlorhexidi ne gluconate 1.2 MG/ML Mouthwash 03-03 10:46: 00 No Notes: (Same As: Peridex) Jerry Reyes propofol INJ 1,000 mg 03-03 10:46: 00 No Notes: If Diprivan - change bottle & tubing every 12 hr Per state nursing law propofol can only be given by a nurse if patient is intubated or being intubated (unless the nurse is a ULTRASONIC HAND SOLDERER). Same as: Diprivan Jerry Reyes Saline Flush 0.9% 03-03 10:46: 00 No Notes: (Same as: BD Posiflush) Jerry Reyes propofol (ANES) 03-03 10:22: 00 No Route: IV, Drug form: INJ, ONCE, Stop date: 03/03/17 5:22:00 CDT Jerry Nagyann fentaNYL (ANES) 03-03 10:22: 00 No Route: IV, Drug form: INJ, ONCE, Stop date: 03/03/17 5:22:00 CDT Jerry yip [place] propofol (ANES) 03-03 10:22: 00 No Route: IV, Drug form: INJ, ONCE, Stop date: 03/03/17 5:22:00 CDT Jerry Nagyann fentaNYL (ANES) 03-03 10:22: 00 No Route: IV, Drug form: INJ, ONCE, Stop date: 03/03/17 5:22:00 CDT Jerry Nagyann phenylephri ne (ANES) 03-03 09:44: 00 No Route: IV, Drug form: INJ, ONCE, Stop date: 03/03/17 4:44:00 CDT Jerry Nagyann phenylephri ne (ANES) 03-03 09:44: 00 No Route: IV, Drug form: INJ, ONCE, Stop date: 03/03/17 4:44:00 CDT Jerry yip [place] fentaNYL (ANES) 03-03 09:40: 00 No Route: IV, Drug form: INJ, ONCE, Stop date: 03/03/17 4:40:00 CDT Memfreddie l Eric fentaNYL (ANES) 03-03 09:40: 00 No Route: IV, Drug form: INJ, ONCE, Stop date: 03/03/17 4:40:00 CDT Jerry Reyes sodium chloride 3% INJ 1,000 mL 03-03 08:11: 00 No Notes: " Memfreddie Reyes sodium chloride 3% INJ 1,000 mL 03-03 08:11: 00 No Notes: " Jerry Reyes ondansetron (ANES) 03-03 08:10: 00 No Route: IV, Drug form: INJ, ONCE, Stop date: 03/03/17 3:10:00 CDT Jerry Reyes ondansetron (ANES) 03-03 08:10: 00 No Route: IV, Drug form: INJ, ONCE, Stop date: 03/03/17 3:10:00 CDT Jerry Reyes propofol INJ 1,000 mg 03-03 08:08: 00 No Notes: If Diprivan - change bottle & tubing every 12 hr Per state nursing law propofol can only be given by a nurse if patient is intubated or being intubated (unless the nurse is a ULTRASONIC HAND SOLDERER). Same as: Diprivan Jerry yip [place] Insulin regular 03-03 08:08: 00 No 60 units) WASTE: F/P - Black; E - Municipal Trash Bin Stable for 28 days at room temperatur e Expires in days from ____Date Jerry Reyes Dextrose 50% Syringe 03-03 08:08: 00 No 12.5 gm, 25 mL, Route: IVP, Drug Form: INJ, Dosing Weight 77.273, kg, PRN, PRN Abnormal Lab Result, Start date: 03/03/17 3:08:00 CDT, Duration: 30 day, Stop date: 04/02/17 3:07:00 CDT, For [facility] 40 mg/dL - 60 mg/dL Memfreddie Nagyann propofol INJ 1,000 mg 03-03 08:08: 00 No Notes: If Diprivan - change bottle & tubing every 12 hr Per state nursing law propofol can only be given by a nurse if patient is intubated or being intubated (unless the nurse is a ULTRASONIC HAND SOLDERER). Same as: Diprivan Kamillaoria l [place] Insulin regular 03-03 08:08: 00 No 60 units) WASTE: F/P - Black; E - Municipal Trash Bin Stable for 28 days at room temperatur e Expires in days from ____Date Jerry Reyes Dextrose 50% Syringe 03-03 08:08: 00 No 12.5 gm, 25 mL, Route: IVP, Drug Form: INJ, Dosing Weight 77.273, kg, PRN, PRN Abnormal Lab Result, Start date: 03/03/17 3:08:00 CDT, Duration: 30 day, Stop date: 04/02/17 3:07:00 CDT, For FSBG 40 mg/dL - 60 mg/dL Kamillafreddie yip Eric phenylephri ne ([facility]) 03-03 07:55: 00 No Route: IV, Drug form: INJ, ONCE, Stop date: 03/03/17 2:55:00 CDT Memfreddie yip [place] acetaminoph en ([facility]) 03-03 07:55: 00 No Route: IV, Drug form: INJ, ONCE, Stop date: 03/03/17 2:55:00 CDT [place] dexamethaso ne ([facility]) 03-03 07:55: 00 No Route: IV, Drug form: INJ, ONCE, Stop date: 03/03/17 2:55:00 CDT Memoria phi [place] phenylephri ne ([facility]) 03-03 07:55: 00 No Route: IV, Drug form: INJ, ONCE, Stop date: 03/03/17 2:55:00 CDT Memoria l [place] acetaminoph en ([facility]) 03-03 07:55: 00 No Route: IV, Drug form: INJ, ONCE, Stop date: 03/03/17 2:55:00 CDT Memoria l [place] dexamethaso ne ([facility]) 03-03 07:55: 00 No Route: IV, Drug form: INJ, ONCE, Stop date: 03/03/17 2:55:00 CDT Memoria phi Reyes midazolam (JULIAN) 03-03 07:50: 00 No Route: IV, Drug form: SOLN, ONCE, Stop date: 03/03/17 2:50:00 CDT Memoria l [place] midazolam (ANES) 201703-03 07:50: 00 No Route: IV, Drug form: SOLN, ONCE, Stop date: 03/03/17 2:50:00 CDT Memoria l [place] rocuronium (ANES) 03-03 07:35: 00 No Route: IV, Drug form: INJ, ONCE, Stop date: 03/03/17 2:35:00 CDT Memoria l Eric fentaNYL (ANES) 03-03 07:35: 00 No Route: IV, Drug form: INJ, ONCE, Stop date: 03/03/17 2:35:00 CDT Memoria l Eric lidocaine (ANES) 03-03 07:35: 00 No Route: IV, Drug form: INJ, ONCE, Stop date: 03/03/17 2:35:00 CDT Memoria l [place] propofol (ANES) 201703-03 07:35: 00 No Route: IV, Drug form: INJ, ONCE, Stop date: 03/03/17 2:35:00 CDT Memoria l Eric rocuronium (ANES) 201703-03 07:35: 00 No Route: IV, Drug form: INJ, ONCE, Stop date: 03/03/17 2:35:00 CDT Memoria l Eric fentaNYL (ANES) 201703-03 07:35: 00 No Route: IV, Drug form: INJ, ONCE, Stop date: 03/03/17 2:35:00 CDT Memoria l [place] lidocaine (ANES) 03-03 07:35: 00 No Route: IV, Drug form: INJ, ONCE, Stop date: 03/03/17 2:35:00 CDT Memoria l Eric propofol (ANES) 201703-03 07:35: 00 No Route: IV, Drug form: INJ, ONCE, Stop date: 03/03/17 2:35:00 CDT Memoria l Eric cefOXitin (ANES) 2017-03-03 07:30: 00 No Route: IV, Drug form: INJ, ONCE, Stop date: 03/03/17 2:30:00 CDT Jerry Reyes cefOXitin (ANES) 03-03 07:30: 00 No Route: IV, Drug form: INJ, ONCE, Stop date: 03/03/17 2:30:00 CDT Jerry Reyes LR 1000 mL INJ (ANES) 03-03 07:00: 00 No Route: IV, Total Volume: 1,000, Start date: 03/03/17 2:00:00 CDT, Stop date: 03/03/17 3:00:00 CDT Jerry Nagyann LR 1000 mL INJ (ANES) 03-03 07:00: 00 No Route: IV, Total Volume: 1,000, Start date: 03/03/17 2:00:00 CDT, Stop date: 03/03/17 3:00:00 CDT Jerry Nagyann Fentanyl 03-03 06:21: 00 No Notes: (Same as: Sublimaze) Preservati ve free. Memfreddie l [place] Fentanyl 03-03 06:21: 00 No Notes: (Same as: Sublimaze) Preservati ve free. Jerry Reyes Isolyte S PH-7.4 (Bolus) IV 03-03 06:10: 00 No Notes: WASTE: F/P - Sink; E - Municipal Trash Bin Jerry yip [place] Isolyte S PH-7.4 (Bolus) IV 03-03 06:10: 00 No Notes: WASTE: F/P - Sink; E - Municipal Trash Bin Memoria l [place] Fentanyl 03-03 06:06: 00 No 50 microgram, Route: IVP, ONCE, Dosing Weight 77.273, kg, Priority: STAT, Start date: 03/03/17 1:06:00 CDT, Stop date: 03/03/17 1:06:00 CDT Jerry l [place] Fentanyl 03-03 06:06: 00 No 50 microgram, Route: IVP, ONCE, Dosing Weight 77.273, kg, Priority: STAT, Start date: 03/03/17 1:06:00 CDT, Stop date: 03/03/17 1:06:00 CDT Jerry Nagyann iodixanol 03-03 05:12: 00 No Notes: (Same as: Yas) . WASTE: F/P - Black; E - Municipal Trash Bin Jerry Ryees iodixanol 03-03 05:12: 00 No Notes: (Same as: Yas) . WASTE: F/P - Black; E - Municipal Trash Bin Jerry yip [place] Fentanyl 03-03 05:03: 00 No 100 microgram, Route: IVP, ONCE, kg, Priority: STAT, Start date: 03/03/17 0:03:00 CDT, Stop date: 03/03/17 0:03:00 CDT Jerry yip [place] Saline Flush 0.9% 03-03 05:03: 00 No Notes: (Same as: BD Posiflush) Jerry Reyes Fentanyl 03-03 05:03: 00 No 100 microgram, Route: IVP, ONCE, kg, Priority: STAT, Start date: 03/03/17 0:03:00 CDT, Stop date: 03/03/17 0:03:00 CDT Jerry Reyes Saline Flush 0.9% 03-03 05:03: 00 No Notes: (Same as: BD Posiflush) Jerry Reyes Immunizations Ordered Immunization Name Filled Immunization Name Date Status Comments Source diphtheria/pertussi s, acel/tetanus adult 2017-03-03 06:05:00 Completed Terence Reyes diphtheria/pertussi s, acel/tetanus adult Unknown Completed Terence Reyes Vital Signs Vital Name Observation Time Observation Value Comments S ource Systolic blood pressure 2023-04-23 15:22:00 114 mm[Hg] [facility] Diastolic blood pressure 2023-04-23 15:22:00 71 mm[Hg] [facility] Heart rate 2023-04-23 15:22:00 120 /min [facility] Body temperature 2023-04-23 15:22:00 36.17 Shante [facility] Body height 2023-04-23 15:22:00 177.8 cm [facility] Body weight 2023-04-23 15:22:00 65[facility]772 [facility] BMI 2023-04-23 15:22:00 20.81 kg/m2 [facility] Systolic blood pressure 2021-04-14 19:10:00 106 mm[Hg] [facility] Diastolic blood pressure 2021-04-14 19:10:00 73 mm[Hg] [facility] Heart rate 2021-04-14 19:10:00 88 /min [facility] Body temperature 2021-04-14 19:10:00 36.28 [facility] Body height 2021-04-14 19:10:00 177.8 cm [facility] Body weight 2021-04-14 19:10:00 58.06 kg [facility] BMI 2021-04-14 19:10:00 18.37 kg/m2 [facility] BP Systolic 2018-01-14 12:35:00 109 mm[Hg] [facility] BP Diastolic 2018-01-14 12:35:00 78 mm[Hg] [facility] Height 2018-01-14 12:35:00 70 [in_us] [facility] Weight 2018-01-14 12:35:00 119.375 [lb_av] [facility] Body Mass Index Calculated 2018-01-14 12:35:00 17.13 kg/m2 [facility] Temperature 2018-01-14 12:35:00 97.8 [degF] [facility] Heart Rate 2018-01-14 12:35:00 80 /min [facility] BP Systolic 2018-01-03 13:20:00 130 mm[Hg] [facility] BP Diastolic 2018-01-03 13:20:00 87 mm[Hg] [facility] Height 2018-01-03 13:20:00 70 [in_us] [facility] Weight 2018-01-03 13:20:00 121.5 [lb_av] [facility] Body Mass Index Calculated 2018-01-03 13:20:00 17.43 kg/m2 [facility] Temperature 2018-01-03 13:20:00 96 [degF] [facility] Heart Rate 2018-01-03 13:20:00 98 /min [facility] Respitory Rate 2017-12-31 16:52:00 [facility] Systolic (mm Hg) 2017-12-31 16:52:00 [facility] Diastolic (mm Hg) 2017-12-31 16:52:00 [facility] Heart Rate 2017-12-31 16:52:00 [facility] [place] Temperature Oral (F) 2017-12-31 16:52:00 98 F [facility] Respitory Rate 2017-12-31 13:10:00 [facility] Temperature Oral (F) 2017-12-31 13:10:00 97.8 F [facility] [place] Heart Rate 2017-12-31 13:10:00 [facility] [place] Systolic (mm Hg) 2017-12-31 13:10:00 [facility] [place] Diastolic (mm Hg) 2017-12-31 13:10:00 [facility] [place] Temperature Oral (F) 2017-12-31 08:49:00 98.6 F [facility] Respitory Rate 2017-12-31 08:49:00 [facility] Heart Rate 2017-12-31 08:49:00 [facility] [place] Systolic (mm Hg) 2017-12-31 08:49:00 [facility] Diastolic (mm Hg) 2017-12-31 08:49:00 [facility] [place] Height 2017-12-27 11:06:00 180.34 cm [facility] Weight 2017-12-27 11:06:00 [facility] BMI Calculated 2017-12-27 11:06:00 [facility] [place] BMI Calculated 2017-12-16 19:34:00 [facility] Weight 2017-12-16 19:34:00 [facility] [place] Height 2017-12-16 19:34:00 180.34 cm [facility] BP Systolic 2017-11-15 13:34:00 130 mm[Hg] [facility] Diastolic 2017-11-15 13:34:00 88 mm[Hg] [facility] Height 2017-11-15 13:34:00 70 [in_us] [facility] Weight 2017-11-15 13:34:00 124.5 [lb_av] [facility] Body Mass Index Calculated 2017-11-15 13:34:00 17.86 kg/m2 [facility] Temperature 2017-11-15 13:34:00 96.8 [degF] [facility] Heart Rate 2017-11-15 13:34:00 94 /min [facility] Weight 2017-10-22 09:58:00 129 [lb_av] [facility] Body Mass Index Calculated 2017-10-22 09:58:00 18.51 kg/m2 [facility] Temperature 2017-10-22 09:58:00 96.6 [degF] [facility] Heart Rate 2017-10-22 09:58:00 58 /min [facility] BP Systolic 2017-10-22 09:58:00 114 mm[Hg] [facility] BP Diastolic 2017-10-22 09:58:00 72 mm[Hg] [facility] Height 2017-10-22 09:58:00 70 [in_us] [facility] Height 2017-05-18 08:15:00 70 [in_us] [facility] Weight 2017-05-18 08:15:00 173 [lb_av] [facility] Body Mass Index Calculated 2017-05-18 08:15:00 24.82 kg/m2 [facility] BP Systolic 2017-04-09 11:42:00 105 mm[Hg] [facility] BP Diastolic 2017-04-09 11:42:00 70 mm[Hg] [facility] Height 2017-04-09 11:42:00 70 [in_us] [facility] Weight 2017-04-09 11:42:00 173 [lb_av] [facility] Body Mass Index Calculated 2017-04-09 11:42:00 24.82 kg/m2 [facility] Temperature 2017-04-09 11:42:00 98 [degF] [facility] Heart Rate 2017-04-09 11:42:00 88 /min [facility] Systolic (mm Hg) 2017-03-28 16:56:00 [facility] Diastolic (mm Hg) 2017-03-28 16:56:00 [facility] Heart Rate 2017-03-28 16:56:00 [facility] Temperature Oral (F) 2017-03-28 16:56:00 97.6 F [facility] Respitory Rate 2017-03-28 16:56:00 [facility] Systolic (mm Hg) 2017-03-28 13:25:00 [facility] Diastolic (mm Hg) 2017-03-28 13:25:00 [facility] Respitory Rate 2017-03-28 13:25:00 [facility] Heart Rate 2017-03-28 13:25:00 [facility] Temperature Oral (F) 2017-03-28 13:25:00 98.0 F [facility] Systolic (mm Hg) 2017-03-28 08:58:00 [facility] Diastolic (mm Hg) 2017-03-28 08:58:00 [facility] Respitory Rate 2017-03-28 08:58:00 [facility] Temperature Oral (F) 2017-03-28 08:58:00 98 F [facility] Heart Rate 2017-03-28 08:58:00 [facility] Weight 2017-03-26 18:09:00 [facility] BMI Calculated 2017-03-26 18:09:00 [facility] Height 2017-03-26 18:09:00 180.34 cm [facility] Weight 2017-03-12 18:17:00 [facility] Weight 2017-03-04 16:14:00 [facility] Height 2017-03-04 16:14:00 180.34 cm [facility] BMI Calculated 2017-03-04 16:14:00 [facility] Height 2017-03-04 01:37:00 180.34 cm [facility] BMI Calculated 2017-03-03 05:10:00 [facility] Procedures Procedure Date / Time Performed Performing Clinicia n Source Scrotal varicocelectomy 1994-06-28 00:00:00 [facility] En[facility] Start Date/Time End Date/Time Encounter Type Admission Type Attending Clinicians Care Facility Care Department Encounter ID Source 2023-06-16 11:21:49 Outpatient [facility] [id number] [facility] 2023-04-23 10:20:20 Outpatient [facility] [id number] [facility] 2023-06-04 08:45:50 2023-06-04 08:45:50 Outpatient [facility] [id number] Truman Espinoza Gilberto 2023-04-23 10:30:00 2023-04-23 10:46:41 Office Visit Cristobal Gabriel [facility] [address] [facility] [id number] [facility] 2023-04-23 09:30:00 2023-04-23 09:30:00 Outpatient [facility] [id number] [facility] 2023-04-07 21:14:00 2023-04-08 03:27:00 Emergency E RAMBO SOLITARIO [facility] [id number] [facility] 2021-04-14 13:58:25 2021-04-14 14:44:25 Office Visit Jovita Whyte [facility] [address] [id number] [facility] 2018-01-14 11:00:00 2018-01-14 11:00:00 Appointmen t; MD DINH REDDY MD [facility] General [facility] [id number] [facility] 2018-01-03 13:15:00 2018-01-03 13:15:00 Appointmen t; MD DINH REDDY MD [facility] [id number] [place] [facility] 2017-12-27 10:11:00 2017-12-30 20:50:00 Inpatient [facility] [id number] [facility] 2017-11-15 13:00:00 2017-11-15 13:00:00 Appointmen t; MD DINH REDDY MD [facility] General Surgery [id number] [facility] 2017-10-29 15:46:00 2017-10-30 04:59:00 Outpatient [facility] [id number] [facility] 2017-10-22 10:30:00 2017-10-22 10:30:00 Appointmen t; MD DINH REDDY MD [facility] [place] [id number] [place] [facility] 2017-06-11 10:00:00 2017-06-11 10:00:00 Appointmen t; MD DINH REDDY MD [facility] [id number] [place] [facility] 2017-05-19 16:14:00 2017-05-21 05:59:59 Phone Message Darcieo zonia MNA Neurosurger y C [id number] Jerry Reyes 2017-05-17 10:15:00 2017-05-17 10:15:00 Appointmen t; PATT JACKSON M.D. PRASARN, MARK, M.D. [facility] [id number] [place] [facility] 2017-05-12 07:45:00 2017-05-12 07:45:00 Appointmen t; PATT JACKSON M.D. PRASARN, MARK, M.D. [facility] [id number] [place] [facility] 2017-04-14 13:15:00 2017-04-14 13:15:00 Appointmen t; PATT JACKSON M.D. PRASARN, MARK, M.D. [facility] [id number] [place] [facility] 2017-04-09 10:15:00 2017-04-09 10:15:00 Appointmen t; TRAUMAGEORGIA PHILLIP MD TRAUMANICOLÁS Phillips MD [facility] [id number] [place] [facility] 2017-03-02 05:05:00 2017-03-28 22:00:00 Inpatient nullLisao r [facility] [id number] 67 Jerry Ryees Results Test Description Test Time Test Comments Results Result Co mments Source [facility]leenxhIUCEUWMDYUUO7470-91-60 08:59:00* Test Item Value Reference Range Interpretation Comme nts Globulin (test code = Globulin) 2.8 2.7-4.2 [facility] HospitalVhfuotcAZSDJGQMRWYF6100-92-72 08:59:00* Test Item Value Reference Range Interpretation Comme nts A/G Ratio (test code = A/G Ratio) 0.9 1 0.7-1.6 [facility] HospitalDihrlyoLXEDMOIGHWPU5937-29-93 08:59:00* Test Item Value Reference Range Interpretation Comme nts B/C Ratio (test code = B/C Ratio) 12 1 6-25 [facility] HospitalItcqgroLVHOBPRNCYPU5484-68-40 08:59:00* Test Item Value Reference Range Interpretation Comme nts eGFR (test code = eGFR) 109 [facility] HospitalGdarflyWKRQMBUODCOL3546-79-11 08:59:00* Test Item Value Reference Range Interpretation Comme nts Calcium Lvl (test code = Calcium Lvl) 8.1 8.5-10.5 [facility] HospitalKcamcutOUXHUOPZIUJE5662-57-73 08:59:00* Test Item Value Reference Range Interpretation Comme nts CO2 (test code = CO2) 26 24-32 [facility] HospitalIbiufaeHNYEGTTAWGCQ7229-34-71 08:59:00* Test Item Value Reference Range Interpretation Comme nts Sodium Lvl (test code = Sodium Lvl) 141 135-145 [facility] HospitalPlxcznbTKMRGBZFXDNH2595-11-01 08:59:00* Test Item Value Reference Range Interpretation Comme nts Creatinine Lvl (test code = Creatinine Lvl) 0.86 0.50-1.40 [facility] HospitalXfzocuvVZVJEDABWYAW3295-31-04 08:59:00* Test Item Value Reference Range Interpretation Comme nts Chloride Lvl (test code = Chloride Lvl) 106 95-109 [facility] HospitalDvdbimxQLAGHAABXXMD0346-67-47 08:59:00* Test Item Value Reference Range Interpretation Comme nts Potassium Lvl (test code = P otassium Lvl) 3.9 3.5-5.1 [facility] HospitalAdfjsodAVREQEQUOFQE4473-28-41 08:59:00* Test Item Value Reference Range Interpretation Comme nts Total Protein (test code = T otal Protein) 5.3 6.4-8.4 [facility] HospitalRgaejviPHOCRSIOVGHN2251-20-71 08:59:00* Test Item Value Reference Range Interpretation Comme nts Alk Phos (test code = Alk Phos) 71 39-136 [facility] HospitalZhiyfrrHSRRMEHFONQM0720-78-40 08:59:00* Test Item Value Reference Range Interpretation Comme nts BUN (test code = BUN) 10 7-22 [facility] HospitalOtxdmsbZQWUVMNTAZMU5344-30-98 08:59:00* Test Item Value Reference Range Interpretation Comme nts Glucose Lvl (test code = Glucose Lvl) 96 70-99 [facility] HospitalPxjulxtGAYBMNVJIQAE2542-12-36 08:59:00* Test Item Value Reference Range Interpretation Comme nts ALT (test code = ALT) 33 <=65 [facility] HospitalYfhmcwzRMPYKFXUGSQQ3140-52-36 08:59:00* Test Item Value Reference Range Interpretation Comme nts Albumin Lvl (test code = Albumin Lvl) 2.5 3.5-5.0 [facility] HospitalRfiyojyFHLJSXZKXZUH2942-44-49 08:59:00* Test Item Value Reference Range Interpretation Comme nts AST (test code = AST) 47 <=37 [facility]LcjxytvASPXGNRKGNRD9658-69-34 08:59:00* Test Item Value Reference Range Interpretation Comme nts Bili Total (test code = Bili Total) 0.4 0.2-1.3 [facility] CenterWlgksxeATOSQVVZTL8621-04-74 08:59:00* Test Item Value Reference Range Interpretation Comme nts Segs-Bands # (test code = Segs-Bands #) 6.7 1.5-8.1 [facility] CenterYqjkfriZJVGSHAHKD2190-59-33 08:59:00* Test Item Value Reference Range Interpretation Comme nts Lymphocytes # (test code = L ymphocytes #) 1.7 1.0-5.5 [facility] CenterVigwseaWRHDHAKHYX1452-95-82 08:59:00* Test Item Value Reference Range Interpretation Comme nts Basophils # (test code = Basophils #) 0.1 <=0.2 [facility] CenterGcnlkjhXJLWZNTBCT5606-73-46 08:59:00* Test Item Value Reference Range Interpretation Comme nts Monocytes # (test code = Monocytes #) 1.1 <=0.8 [facility] CenterTiyzevnGBJYTUJSZQ8428-69-71 08:59:00* Test Item Value Reference Range Interpretation Comme nts Eosinophils # (test code = E osinophils #) 0.3 <=0.5 [facility] CenterVzczkaxPVRSVYEEDA8489-42-50 08:59:00* Test Item Value Reference Range Interpretation Comme nts Segs (test code = Segs) 67.7 45.0-75.0 [facility] CenterDqowqprFRLZYAXANJ1662-22-61 08:59:00* Test Item Value Reference Range Interpretation Comme nts Lymphocytes (test code = Lymphocytes) 17.3 20.0-40.0 [facility] CenterDajnzxsBGXXMGWFDO5098-68-41 08:59:00* Test Item Value Reference Range Interpretation Comme nts Eosinophils (test code = Eosinophils) 2.8 <=4.0 [facility] CenterFyuhawlGGRMJWOXYY2327-16-70 08:59:00* Test Item Value Reference Range Interpretation Comme nts Basophils (test code = Basophils) 0.9 <=1.0 [facility] CenterKxfjdugEPSOJRXUJO4503-78-90 08:59:00* Test Item Value Reference Range Interpretation Comme nts Monocytes (test code = Monocytes) 11.3 2.0-12.0 [facility]RWIMBJZQEM8126-70-22 08:59:00* Test Item Value Reference Range Interpretation Comme nts MCV (test code = MCV) 87.5 80.0-94.0 [facility]GlepvrrITZLWOIVSN3717-20-60 08:59:00* Test Item Value Reference Range Interpretation Comme nts Hgb (test code = Hgb) 10.6 14.0-18.0 [facility] FlintRcajtzlIHSXBPXBKT3858-54-83 08:59:00* Test Item Value Reference Range Interpretation Comme nts Hct (test code = Hct) 31.7 42.0-54.0 [facility] FlintVwoyavvVBKGUANXJK3398-65-05 08:59:00* Test Item Value Reference Range Interpretation Comme nts MCH (test code = MCH) 29.3 pg 27.0-31.0 [facility] FlintKfcpeqnMPNMCLLNAH5034-90-60 08:59:00* Test Item Value Reference Range Interpretation Comme nts MCHC (test code = MCHC) 33.5 32.0-36.0 [facility] FlintTbstfdbVCJQFSFEVN3158-15-93 08:59:00* Test Item Value Reference Range Interpretation Comme nts MPV (test code = MPV) 7.4 7.4-10.4 [facility] FlintZlriyfwFHQRQXGJCM7779-33-55 08:59:00* Test Item Value Reference Range Interpretation Comme nts RDW (test code = RDW) 13.9 11.5-14.5 [facility] FlintIhgrqycYPUCGNYWFA7083-41-80 08:59:00* Test Item Value Reference Range Interpretation Comme nts Platelet (test code = Platelet) 289 133-450 [facility] FlintGhvieazYUGSFNIQHD9149-86-00 08:59:00* Test Item Value Reference Range Interpretation Comme nts RBC (test code = RBC) 3.62 4.70-6.10 [facility] FlintZestyzwPBDMQZYPBH5980-34-37 08:59:00* Test Item Value Reference Range Interpretation Comme nts WBC (test code = WBC) 9.9 3.7-10.4 [facility] HospitalEwirfpjINNFEQMNLCLG5348-80-59 08:59:00* Test Item Value Reference Range Interpretation Comme nts AGAP (test code = AGAP) 12.9 10.0-20.0 [facility] HospitalTepqwmmDGQICWYEIQPV6043-02-93 08:59:00* Test Item Value Reference Range Interpretation Comme nts Globulin (test code = Globulin) 2.8 2.7-4.2 [facility] HospitalOqyazbcYNBUYMDSBZQP5187-69-61 08:59:00* Test Item Value Reference Range Interpretation Comme nts A/G Ratio (test code = A/G Ratio) 0.9 1 0.7-1.6 [facility] HospitalBqvbexqWSIHCXIZJDHC9552-07-50 08:59:00* Test Item Value Reference Range Interpretation Comme nts B/C Ratio (test code = B/C Ratio) 12 1 6-25 [facility] HospitalYvfrdbpRSBMQXSVMRHV5094-79-69 08:59:00* Test Item Value Reference Range Interpretation Comme nts eGFR (test code = eGFR) 109 [facility] HospitalQsooakjNEQCEFCAGRTN3962-59-63 08:59:00* Test Item Value Reference Range Interpretation Comme nts Calcium Lvl (test code = Calcium Lvl) 8.1 8.5-10.5 [facility] HospitalBukgkoxTUVGNTGGRXZB5049-01-59 08:59:00* Test Item Value Reference Range Interpretation Comme nts CO2 (test code = CO2) 26 24-32 [facility] HospitalKyghkjeADFWVIHGWBOJ9016-68-78 08:59:00* Test Item Value Reference Range Interpretation Comme nts Sodium Lvl (test code = Sodium Lvl) 141 135-145 [facility] HospitalFikiafpHPUZRXKHHQAS7126-40-86 08:59:00* Test Item Value Reference Range Interpretation Comme nts Creatinine Lvl (test code = Creatinine Lvl) 0.86 0.50-1.40 [facility] HospitalQtxrbejFQXYXEBVOQTZ3415-98-14 08:59:00* Test Item Value Reference Range Interpretation Comme nts Chloride Lvl (test code = Chloride Lvl) 106 95-109 [facility] HospitalIerfpakFMJMSECSQBTL5632-68-54 08:59:00* Test Item Value Reference Range Interpretation Comme nts Potassium Lvl (test code = P otassium Lvl) 3.9 3.5-5.1 [facility] HospitalHbwvsrnXWVIXJJKHPND4554-06-84 08:59:00* Test Item Value Reference Range Interpretation Comme nts Total Protein (test code = T otal Protein) 5.3 6.4-8.4 [facility] HospitalMmrxtkpPAVVABETLHOA7050-37-32 08:59:00* Test Item Value Reference Range Interpretation Comme nts Alk Phos (test code = Alk Phos) 71 39-136 [facility] HospitalWvqdcsbJUKNEXEWHHAG4255-23-27 08:59:00* Test Item Value Reference Range Interpretation Comme nts BUN (test code = BUN) 10 7-22 [facility] HospitalZrzlojrRIWWWABNDYAC7677-25-20 08:59:00* Test Item Value Reference Range Interpretation Comme nts Glucose Lvl (test code = Glucose Lvl) 96 70-99 [facility] HospitalLfgpshmUPHZSYVQOTWN1191-28-99 08:59:00* Test Item Value Reference Range Interpretation Comme nts ALT (test code = ALT) 33 See_Comment [A utomated message] The system which generated this result transmitted reference range: <=65. The reference range was not used to interpret this result as normal/abnormal. [facility] HospitalOylbngiCKRJERNBIXTD7219-71-50 08:59:00* Test Item Value Reference Range Interpretation Comme nts Albumin Lvl (test code = Albumin Lvl) 2.5 3.5-5.0 [facility] HospitalYpovopvSFYDEOPGLNKS6939-48-61 08:59:00* Test Item Value Reference Range Interpretation Comme nts AST (test code = AST) 47 See_Comment [A utomated message] The system which generated this result transmitted reference range: <=37. The reference range was not used to interpret this result as normal/abnormal. [facility] HospitalGchouscRZRRORGYCNRU1724-01-03 08:59:00* Test Item Value Reference Range Interpretation Comme nts Bili Total (test code = Bili Total) 0.4 0.2-1.3 [facility] CenterRphtumqRQTGGGSJLG7879-77-88 08:59:00* Test Item Value Reference Range Interpretation Comme nts Segs-Bands # (test code = Segs-Bands #) 6.7 1.5-8.1 [facility] CenterCtxgsdlIHFTVVXBLG8411-57-41 08:59:00* Test Item Value Reference Range Interpretation Comme nts Lymphocytes # (test code = L ymphocytes #) 1.7 1.0-5.5 [facility] CenterGzqcuiaVXHWSTJZIW9819-02-61 08:59:00* Test Item Value Reference Range Interpretation Comme nts Basophils # (test code = Basophils #) 0.1 See_Comment [Automated messa ge] The system which generated this result transmitted reference range: <=0.2. The reference range was not used to interpret this result as normal/abnormal. [facility] CenterExiovxuLGACECKLZO7589-84-74 08:59:00* Test Item Value Reference Range Interpretation Comme nts Monocytes # (test code = Monocytes #) 1.1 See_Comment [Automated messa ge] The system which generated this result transmitted reference range: <=0.8. The reference range was not used to interpret this result as normal/abnormal. [facility] CenterWfcbnkvAQNVXYKINV7270-95-27 08:59:00* Test Item Value Reference Range Interpretation Comme nts Eosinophils # (test code = Eosinophils #) 0.3 See_Comment [Automated mess age] The system which generated this result transmitted reference range: <=0.5. The reference range was not used to interpret this result as normal/abnormal. [facility] CenterZisiutmTFNCISBRCL5444-24-26 08:59:00* Test Item Value Reference Range Interpretation Comme nts Segs (test code = Segs) 67.7 45.0-75.0 [facility] CenterIvmzmkkHFQUICKQJD1949-04-56 08:59:00* Test Item Value Reference Range Interpretation Comme nts Lymphocytes (test code = Lymphocytes) 17.3 20.0-40.0 [facility] CenterKakgjksQTICPUGEPI0263-62-70 08:59:00* Test Item Value Reference Range Interpretation Comme nts Eosinophils (test code = Eosinophils) 2.8 See_Comment [Automated messa ge] The system which generated this result transmitted reference range: <=4.0. The reference range was not used to interpret this result as normal/abnormal. [facility] CenterCjxmxnsNVJESDXDLL9658-05-59 08:59:00* Test Item Value Reference Range Interpretation Comme nts Basophils (test code = Basophils) 0.9 See_Comment [Automated messa ge] The system which generated this result transmitted reference range: <=1.0. The reference range was not used to interpret this result as normal/abnormal. [facility] CenterMkoekbbBTWVQUZWRY7036-10-70 08:59:00* Test Item Value Reference Range Interpretation Comme nts Monocytes (test code = Monocytes) 11.3 2.0-12.0 [facility] CenterUfxvzgtUMMGGRFDEA7358-63-30 08:59:00* Test Item Value Reference Range Interpretation Comme nts MCV (test code = MCV) 87.5 80.0-94.0 [facility] CenterIadwqlhDFRDFQMJUU3008-82-24 08:59:00* Test Item Value Reference Range Interpretation Comme nts Hgb (test code = Hgb) 10.6 14.0-18.0 [facility] CenterSkjfkixWAOSXADOOS2047-42-46 08:59:00* Test Item Value Reference Range Interpretation Comme nts Hct (test code = Hct) 31.7 42.0-54.0 [facility] CenterBvtgkvoNVIQKPVWYG9143-17-86 08:59:00* Test Item Value Reference Range Interpretation Comme nts MCH (test code = MCH) 29.3 pg 27.0-31.0 [facility] CenterOjiianqFEVCLNUCXK4171-60-93 08:59:00* Test Item Value Reference Range Interpretation Comme nts MCHC (test code = MCHC) 33.5 32.0-36.0 [facility] CenterNqyhryoPLPTVGJKIL1315-36-79 08:59:00* Test Item Value Reference Range Interpretation Comme nts MPV (test code = MPV) 7.4 7.4-10.4 [facility] CenterPfxgxrdLSOADXTNOP5675-09-46 08:59:00* Test Item Value Reference Range Interpretation Comme nts RDW (test code = RDW) 13.9 11.5-14.5 [facility] CenterZszybepJIOXXLHAVJ6382-65-18 08:59:00* Test Item Value Reference Range Interpretation Comme nts Platelet (test code = Platelet) 289 133-450 [facility] CenterSagnkkiTGLGTTGRUG9084-57-25 08:59:00* Test Item Value Reference Range Interpretation Comme nts RBC (test code = RBC) 3.62 4.70-6.10 [facility] CenterUlxnwvcPKSYPQRZJV2390-62-52 08:59:00* Test Item Value Reference Range Interpretation Comme nts WBC (test code = WBC) 9.9 3.7-10.4 [facility]2018-07-03 07:53:00* Test Item Value Reference Range Interpretation Comme nts eGFR (test code = eGFR) 122 [facility]2018-07-03 07:53:00* Test Item Value Reference Range Interpretation Comme nts Sodium Lvl (test code = Sodium Lvl) 143 135-145 [facility]2018-07-03 07:53:00* Test Item Value Reference Range Interpretation Comme nts Calcium Lvl (test code = Calcium Lvl) 7.5 8.5-10.5 [facility]2018-07-03 07:53:00* Test Item Value Reference Range Interpretation Comme nts Chloride Lvl (test code = Chloride Lvl) 111 95-109 [facility]2018-07-03 07:53:00* Test Item Value Reference Range Interpretation Comme nts CO2 (test code = CO2) 21 24-32 [facility]2018-07-03 07:53:00* Test Item Value Reference Range Interpretation Comme nts AGAP (test code = AGAP) 15.1 10.0-20.0 [facility]2018-07-03 07:53:00* Test Item Value Reference Range Interpretation Comme nts Glucose Lvl (test code = Glucose Lvl) 88 70-99 [facility]2018-07-03 07:53:00* Test Item Value Reference Range Interpretation Comme nts BUN (test code = BUN) 13 7-22 [facility]2018-07-03 07:53:00* Test Item Value Reference Range Interpretation Comme nts Potassium Lvl (test code = P otassium Lvl) 4.1 3.5-5.1 [facility]2018-07-03 07:53:00* Test Item Value Reference Range Interpretation Comme nts Creatinine Lvl (test code = Creatinine Lvl) 0.65 0.50-1.40 [facility] CenterPanqewgCVIATRCTGD9320-31-98 07:53:00* Test Item Value Reference Range Interpretation Comme nts MPV (test code = MPV) 7.3 7.4-10.4 [facility] CenterCtjaffwNRUWCKLKLL8760-63-12 07:53:00* Test Item Value Reference Range Interpretation Comme nts MCHC (test code = MCHC) 34.4 32.0-36.0 [facility] CenterTtthlwgMGQGLQGFHE7369-38-40 07:53:00* Test Item Value Reference Range Interpretation Comme nts Platelet (test code = Platelet) 352 133-450 [facility] CenterNsabtmjIBNUTZJGNV7169-60-07 07:53:00* Test Item Value Reference Range Interpretation Comme nts RDW (test code = RDW) 13.7 11.5-14.5 [facility] CenterSqglkytQLRZTDTJWQ4831-23-46 07:53:00* Test Item Value Reference Range Interpretation Comme nts MCH (test code = MCH) 29.6 pg 27.0-31.0 [facility] CenterRviwbqcXPOBKUYEAK3868-83-28 07:53:00* Test Item Value Reference Range Interpretation Comme nts MCV (test code = MCV) 86.3 80.0-94.0 [facility] CenterPsbjajiWPMMRTWLHB7536-55-72 07:53:00* Test Item Value Reference Range Interpretation Comme nts Hgb (test code = Hgb) 11.9 14.0-18.0 [facility] CenterSzxubdhDZWCRETSNV4009-13-65 07:53:00* Test Item Value Reference Range Interpretation Comme nts Hct (test code = Hct) 34.5 42.0-54.0 [facility] CenterAzdwtsdLMSMXLYTUM3057-14-02 07:53:00* Test Item Value Reference Range Interpretation Comme nts RBC (test code = RBC) 4.00 4.70-6.10 [facility] CenterYostvsrKSYIVBXWDP1648-98-84 07:53:00* Test Item Value Reference Range Interpretation Comme nts WBC (test code = WBC) 10.5 3.7-10.4 [facility] CenterJbzwfyxZALPWPRDPH2369-60-37 07:53:00* Test Item Value Reference Range Interpretation Comme nts Lymphocytes (test code = Lymphocytes) 15.4 20.0-40.0 [facility] CenterHmjdaxdQCXBWWISGJ8217-76-79 07:53:00* Test Item Value Reference Range Interpretation Comme nts Segs (test code = Segs) 72.0 45.0-75.0 [facility] CenterLnqxgdnRRSADPKOWI8819-07-24 07:53:00* Test Item Value Reference Range Interpretation Comme nts Monocytes # (test code = Monocytes #) 1.3 <=0.8 [facility] CenterFtmqwujAPAXSABYWM4049-77-74 07:53:00* Test Item Value Reference Range Interpretation Comme nts Lymphocytes # (test code = L ymphocytes #) 1.6 1.0-5.5 [facility] CenterEzvmzjdHMZXWAOAOD1350-26-04 07:53:00* Test Item Value Reference Range Interpretation Comme nts Eosinophils (test code = Eosinophils) 0.1 <=4.0 [facility] CenterVgaqhvaWYXLAVKINC5026-25-50 07:53:00* Test Item Value Reference Range Interpretation Comme nts Segs-Bands # (test code = Segs-Bands #) 7.6 1.5-8.1 [facility] CenterNplhuxhJOWHJZSPEC0212-98-80 07:53:00* Test Item Value Reference Range Interpretation Comme nts Basophils (test code = Basophils) 0.2 <=1.0 [facility] CenterVgogfyyZTQTKDZIOB2927-69-23 07:53:00* Test Item Value Reference Range Interpretation Comme nts Monocytes (test code = Monocytes) 12.3 2.0-12.0 [facility]2018-07-03 07:53:00* Test Item Value Reference Range Interpretation Comme nts eGFR (test code = eGFR) 122 [facility]2018-07-03 07:53:00* Test Item Value Reference Range Interpretation Comme nts Sodium Lvl (test code = Sodium Lvl) 143 135-145 [facility]2018-07-03 07:53:00* Test Item Value Reference Range Interpretation Comme nts Calcium Lvl (test code = Calcium Lvl) 7.5 8.5-10.5 [facility]2018-07-03 07:53:00* Test Item Value Reference Range Interpretation Comme nts Chloride Lvl (test code = Chloride Lvl) 111 95-109 [facility]2018-07-03 07:53:00* Test Item Value Reference Range Interpretation Comme nts CO2 (test code = CO2) 21 24-32 [facility]2018-07-03 07:53:00* Test Item Value Reference Range Interpretation Comme nts AGAP (test code = AGAP) 15.1 10.0-20.0 [facility]2018-07-03 07:53:00* Test Item Value Reference Range Interpretation Comme nts Glucose Lvl (test code = Glucose Lvl) 88 70-99 [facility]2018-07-03 07:53:00* Test Item Value Reference Range Interpretation Comme nts BUN (test code = BUN) 13 7-22 [facility]2018-07-03 07:53:00* Test Item Value Reference Range Interpretation Comme nts Potassium Lvl (test code = P otassium Lvl) 4.1 3.5-5.1 [facility]2018-07-03 07:53:00* Test Item Value Reference Range Interpretation Comme nts Creatinine Lvl (test code = Creatinine Lvl) 0.65 0.50-1.40 [facility]MgmqkxoBCXMRNDVOU2893-95-91 07:53:00* Test Item Value Reference Range Interpretation Comme nts MPV (test code = MPV) 7.3 7.4-10.4 [facility] CenterCntkvntTZBCVMBEFJ4911-54-87 07:53:00* Test Item Value Reference Range Interpretation Comme nts MCHC (test code = MCHC) 34.4 32.0-36.0 [facility] CenterNjdkhcuPVWIZBLBUT9698-74-04 07:53:00* Test Item Value Reference Range Interpretation Comme nts Platelet (test code = Platelet) 352 133-450 [facility] CenterFnyaxpaOHWSJDEQPQ2897-56-98 07:53:00* Test Item Value Reference Range Interpretation Comme nts RDW (test code = RDW) 13.7 11.5-14.5 [facility] CenterMntxkegSIXIWQMWRM8967-76-82 07:53:00* Test Item Value Reference Range Interpretation Comme nts MCH (test code = MCH) 29.6 pg 27.0-31.0 [facility] CenterTjyvrffXSJKCXMLEN9998-56-45 07:53:00* Test Item Value Reference Range Interpretation Comme nts MCV (test code = MCV) 86.3 80.0-94.0 [facility] CenterYwenzcvIVRANWIJKH0688-01-38 07:53:00* Test Item Value Reference Range Interpretation Comme nts Hgb (test code = Hgb) 11.9 14.0-18.0 [facility] CenterQwyjqrhXIGGIVLLLK9113-05-78 07:53:00* Test Item Value Reference Range Interpretation Comme nts Hct (test code = Hct) 34.5 42.0-54.0 [facility] CenterSfapmetVIRJRAJHPI5406-65-09 07:53:00* Test Item Value Reference Range Interpretation Comme nts RBC (test code = RBC) 4.00 4.70-6.10 [facility] CenterGytbggvEFLQHEFDKO5181-79-58 07:53:00* Test Item Value Reference Range Interpretation Comme nts WBC (test code = WBC) 10.5 3.7-10.4 [facility] CenterAccjfyqMCNAUNMAEK4762-84-44 07:53:00* Test Item Value Reference Range Interpretation Comme nts Lymphocytes (test code = Lymphocytes) 15.4 20.0-40.0 [facility] CenterKhaxwxpEPDFIQBMUE3959-72-42 07:53:00* Test Item Value Reference Range Interpretation Comme nts Segs (test code = Segs) 72.0 45.0-75.0 [facility] CenterXpnroahPTFZUBTPCO5549-24-56 07:53:00* Test Item Value Reference Range Interpretation Comme nts Monocytes # (test code = Monocytes #) 1.3 See_Comment [Automated [employer]] The system which generated this result transmitted reference range: <=0.8. The reference range was not used to interpret this result as normal/abnormal. [facility] CenterCjnmjfxVTHBQGQSWU0257-20-38 07:53:00* Test Item Value Reference Range Interpretation Comme nts Lymphocytes # (test code = L ymphocytes #) 1.6 1.0-5.5 [facility] CenterAbuvzipNMGJZAYKSZ1803-38-51 07:53:00* Test Item Value Reference Range Interpretation Comme nts Eosinophils (test code = Eosinophils) 0.1 See_Comment [Automated [employer]] The system which generated this result transmitted reference range: <=4.0. The reference range was not used to interpret this result as normal/abnormal. [facility] CenterGgfrzbgNTRIXEYWSY9539-49-43 07:53:00* Test Item Value Reference Range Interpretation Comme nts Segs-Bands # (test code = Segs-Bands #) 7.6 1.5-8.1 [facility]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 10:44:00* Test Item Value Reference Range Interpretation Comme nts Basophils (test code = Basophils) 1.0 <=1.0 [facility] CenterGdpeaauRCMDUKXGWA9213-24-20 10:44:00* Test Item Value Reference Range Interpretation Comme nts Eosinophils (test code = Eosinophils) 3.0 <=4.0 [facility] CenterHrptcxaDHUXIWMFUF9434-91-82 10:44:00* Test Item Value Reference Range Interpretation Comme nts Lymphocytes # (test code = L ymphocytes #) 2.4 1.0-5.5 [facility] CenterPxohrprGSGRQSJMCU3494-57-95 10:44:00* Test Item Value Reference Range Interpretation Comme nts Segs-Bands # (test code = Segs-Bands #) 7.9 1.5-8.1 [facility] CenterUjkuxnyZNMAYCZUPP8872-91-86 10:44:00* Test Item Value Reference Range Interpretation Comme nts Eosinophils # (test code = E osinophils #) 0.4 <=0.5 [facility] CenterMranytcUOVHONMITV2610-86-87 10:44:00* Test Item Value Reference Range Interpretation Comme nts MCV (test code = MCV) 90.2 80.0-94.0 [facility] CenterGafwpktTLGSRSUPBM3762-19-03 10:44:00* Test Item Value Reference Range Interpretation Comme nts MCH (test code = MCH) 30.0 pg 27.0-31.0 [facility] CenterAhyxprmLAPMEPSGKD5633-84-68 10:44:00* Test Item Value Reference Range Interpretation Comme nts WBC (test code = WBC) 12.8 3.7-10.4 [facility] CenterOgkfebvOVBMFOIYPZ2666-45-96 10:44:00* Test Item Value Reference Range Interpretation Comme nts Hct (test code = Hct) 22.2 42.0-54.0 [facility] CenterDntekloQKBFFPCXHR4719-06-67 10:44:00* Test Item Value Reference Range Interpretation Comme nts RBC (test code = RBC) 2.46 4.70-6.10 [facility] CenterGjcutjuDYPZYYWBTS1463-22-21 10:44:00* Test Item Value Reference Range Interpretation Comme nts Hgb (test code = Hgb) 7.4 14.0-18.0 [facility] CenterRemxrgbGQKNVFIIWK7495-14-70 10:44:00* Test Item Value Reference Range Interpretation Comme nts Platelet (test code = Platelet) 802 133-450 [facility] CenterMbthqowWVQYUZZSKM9549-06-76 10:44:00* Test Item Value Reference Range Interpretation Comme nts MCHC (test code = MCHC) 33.3 32.0-36.0 [facility] CenterXtznrnlAXVEJPJYWF5320-75-51 10:44:00* Test Item Value Reference Range Interpretation Comme nts RDW (test code = RDW) 14.8 11.5-14.5 [facility] CenterBafwljtYYEWRHTVBH1195-83-23 10:44:00* Test Item Value Reference Range Interpretation Comme nts MPV (test code = MPV) 6.2 7.4-10.4 [facility]2017-09-28 10:44:00* Test Item Value Reference Range Interpretation Comme nts Magnesium Lvl (test code = M agnesium Lvl) 2.2 1.8-2.4 [facility]2017-09-28 10:44:00* Test Item Value Reference Range Interpretation Comme nts Phosphorus (test code = Phosphorus) 4.7 2.5-4.5 [facility]2017-09-28 10:44:00* Test Item Value Reference Range Interpretation Comme nts Calcium Lvl (test code = Calcium Lvl) 8.8 8.5-10.5 [facility]2017-09-28 10:44:00* Test Item Value Reference Range Interpretation Comme nts AGAP (test code = AGAP) 14.5 10.0-20.0 [facility]2017-09-28 10:44:00* Test Item Value Reference Range Interpretation Comme nts Sodium Lvl (test code = Sodium Lvl) 140 135-145 [facility]2017-09-28 10:44:00* Test Item Value Reference Range Interpretation Comme nts Potassium Lvl (test code = P otassium Lvl) 4.5 3.5-5.1 [facility]2017-09-28 10:44:00* Test Item Value Reference Range Interpretation Comme nts Chloride Lvl (test code = Chloride Lvl) 104 95-109 [facility]2017-09-28 10:44:00* Test Item Value Reference Range Interpretation Comme nts CO2 (test code = CO2) 26 24-32 [facility]2017-09-28 10:44:00* Test Item Value Reference Range Interpretation Comme nts BUN (test code = BUN) 25 7-22 [facility]2017-09-28 10:44:00* Test Item Value Reference Range Interpretation Comme nts Creatinine Lvl (test code = Creatinine Lvl) 0.51 0.50-1.40 [facility]2017-09-28 10:44:00* Test Item Value Reference Range Interpretation Comme nts Glucose Lvl (test code = Glucose Lvl) 73 70-99 [facility]2017-09-28 10:44:00* Test Item Value Reference Range Interpretation Comme nts eGFR (test code = eGFR) 136 [facility] CenterLmuiigzTQLFWBSTVX8213-73-87 10:44:00* Test Item Value Reference Range Interpretation Comme nts Basophils # (test code = Basophils #) 0.1 See_Comment [Automated messa ge] The system which generated this result transmitted reference range: <=0.2. The reference range was not used to interpret this result as normal/abnormal. [facility] CenterVaoudcfWYTHMWFRVZ7672-85-99 10:44:00* Test Item Value Reference Range Interpretation Comme nts Monocytes # (test code = Monocytes #) 2.1 See_Comment [Automated messa ge] The system which generated this result transmitted reference range: <=0.8. The reference range was not used to interpret this result as normal/abnormal. [facility] CenterYjsbwvaRMIBPUUWMG0481-85-92 10:44:00* Test Item Value Reference Range Interpretation Comme nts RBC Morph (test code = RBC Morph) Normal (03/25/17 5:44 AM) [facility] CenterMloldhlHWJZLTANKO1593-09-50 10:44:00* Test Item Value Reference Range Interpretation Comme nts Lymphocytes (test code = Lymphocytes) 18.0 20.0-40.0 [facility] CenterPwdsaogUYCXXHSBCE1471-37-92 10:44:00* Test Item Value Reference Range Interpretation Comme nts Plt Morph (test code = Plt Morph) Normal (03/25/17 5:44 AM) [facility] CenterZwrkayuRNQOMLFPYI1739-81-73 10:44:00* Test Item Value Reference Range Interpretation Comme nts Segs (test code = Segs) 62.0 45.0-75.0 [facility] CenterSqnzfheTGJJGHLQLS3153-37-50 10:44:00* Test Item Value Reference Range Interpretation Comme nts Monocytes (test code = Monocytes) 16.0 2.0-12.0 [facility] CenterKljtnkzORQKSYHXUC5894-35-15 10:44:00* Test Item Value Reference Range Interpretation Comme nts Basophils (test code = Basophils) 1.0 See_Comment [Automated messa ge] The system which generated this result transmitted reference range: <=1.0. The reference range was not used to interpret this result as normal/abnormal. [facility] CenterLdnoxziKWHLGASJFQ2076-01-37 10:44:00* Test Item Value Reference Range Interpretation Comme nts Eosinophils (test code = Eosinophils) 3.0 See_Comment [Automated messa ge] The system which generated this result transmitted reference range: <=4.0. The reference range was not used to interpret this result as normal/abnormal. [facility] CenterDumkxpyNZKSYYVYBP6095-82-79 10:44:00* Test Item Value Reference Range Interpretation Comme nts Lymphocytes # (test code = L ymphocytes #) 2.4 1.0-5.5 [facility] CenterVcrosvhFCEJKYPKVC6029-82-72 10:44:00* Test Item Value Reference Range Interpretation Comme nts Segs-Bands # (test code = Segs-Bands #) 7.9 1.5-8.1 [facility] CenterVutzfrlWTDLLYKDWL9712-07-27 10:44:00* Test Item Value Reference Range Interpretation Comme nts Eosinophils # (test code = Eosinophils #) 0.4 See_Comment [Automated mess age] The system which generated this result transmitted reference range: <=0.5. The reference range was not used to interpret this result as normal/abnormal. [facility] CenterSxszyheXWJINQZNKB5233-12-25 10:44:00* Test Item Value Reference Range Interpretation Comme nts MCV (test code = MCV) 90.2 80.0-94.0 [facility] CenterKwyhteqNGLMDIHMRC8951-27-07 10:44:00* Test Item Value Reference Range Interpretation Comme nts MCH (test code = MCH) 30.0 pg 27.0-31.0 [facility] CenterYjfcewqVOLXBGFVRM6995-96-54 10:44:00* Test Item Value Reference Range Interpretation Comme nts WBC (test code = WBC) 12.8 3.7-10.4 [facility] CenterVgeovlcMNJKTWGAMD2668-38-57 10:44:00* Test Item Value Reference Range Interpretation Comme nts Hct (test code = Hct) 22.2 42.0-54.0 [facility] CenterTpoolswOOGSOUFMHE9782-81-88 10:44:00* Test Item Value Reference Range Interpretation Comme nts RBC (test code = RBC) 2.46 4.70-6.10 [facility] CenterUvmpzbuVLYKRVILOG7235-75-83 10:44:00* Test Item Value Reference Range Interpretation Comme nts Hgb (test code = Hgb) 7.4 14.0-18.0 [facility] CenterOrdohrcZNDXIKUOTS4082-11-00 10:44:00* Test Item Value Reference Range Interpretation Comme nts Platelet (test code = Platelet) 802 133-450 [facility] CenterBcqbtxwSBHEOETLVA0142-27-76 10:44:00* Test Item Value Reference Range Interpretation Comme nts MCHC (test code = MCHC) 33.3 32.0-36.0 [facility] CenterBzuyzxbPFRMJSTDGY4250-60-33 10:44:00* Test Item Value Reference Range Interpretation Comme nts RDW (test code = RDW) 14.8 11.5-14.5 [facility] CenterNvsnryjJWBNMUIPHG5900-02-05 10:44:00* Test Item Value Reference Range Interpretation Comme nts MPV (test code = MPV) 6.2 7.4-10.4 [facility]2017-09-26 08:37:00* Test Item Value Reference Range Interpretation Comme nts eGFR (test code = eGFR) 136 [facility]2017-09-26 08:37:00* Test Item Value Reference Range Interpretation Comme nts Glucose Lvl (test code = Glucose Lvl) 105 70-99 [facility]2017-09-26 08:37:00* Test Item Value Reference Range Interpretation Comme nts Sodium Lvl (test code = Sodium Lvl) 140 135-145 [facility]2017-09-26 08:37:00* Test Item Value Reference Range Interpretation Comme nts Creatinine Lvl (test code = Creatinine Lvl) 0.51 0.50-1.40 [facility]2017-09-26 08:37:00* Test Item Value Reference Range Interpretation Comme nts BUN (test code = BUN) 21 7-22 [facility]2017-09-26 08:37:00* Test Item Value Reference Range Interpretation Comme nts Calcium Lvl (test code = Calcium Lvl) 8.3 8.5-10.5 [facility]2017-09-26 08:37:00* Test Item Value Reference Range Interpretation Comme nts AGAP (test code = AGAP) 15.0 10.0-20.0 [facility]2017-09-26 08:37:00* Test Item Value Reference Range Interpretation Comme nts CO2 (test code = CO2) 24 24-32 [facility]2017-09-26 08:37:00* Test Item Value Reference Range Interpretation Comme nts Potassium Lvl (test code = P otassium Lvl) 4.0 3.5-5.1 [facility]2017-09-26 08:37:00* Test Item Value Reference Range Interpretation Comme nts Chloride Lvl (test code = Chloride Lvl) 105 95-109 [place] 590327-09-26 08:37:00* Test Item Value Reference Range Interpretation Comme nts Hct (test code = Hct) 23.2 42.0-54.0 [facility] CenterDivmxwmZHWGNUGTMJ4131-45-76 08:37:00* Test Item Value Reference Range Interpretation Comme nts MCV (test code = MCV) 89.3 80.0-94.0 [facility] CenterWeaserwTYLSQRIBOJ3842-91-78 08:37:00* Test Item Value Reference Range Interpretation Comme nts MCH (test code = MCH) 30.2 pg 27.0-31.0 [facility] CenterRxjxmonXTMTFNUTNQ0668-84-51 08:37:00* Test Item Value Reference Range Interpretation Comme nts RBC (test code = RBC) 2.60 4.70-6.10 [facility] CenterIkpmhjsTMDCEYUKTI5289-29-99 08:37:00* Test Item Value Reference Range Interpretation Comme nts WBC (test code = WBC) 17.8 3.7-10.4 [facility] CenterDjskhyxVLFLOZFYFZ4102-34-89 08:37:00* Test Item Value Reference Range Interpretation Comme nts Hgb (test code = Hgb) 7.8 14.0-18.0 [facility] CenterIefrbibDQJIBYNXVO8852-78-37 08:37:00* Test Item Value Reference Range Interpretation Comme nts RDW (test code = RDW) 14.2 11.5-14.5 [facility] CenterLxifersYLHDAWXAOH9800-97-61 08:37:00* Test Item Value Reference Range Interpretation Comme nts Platelet (test code = Platelet) 1236 133-450 [facility] CenterLewvufcSPXNJWYNCZ2116-71-78 08:37:00* Test Item Value Reference Range Interpretation Comme nts MPV (test code = MPV) 6.4 7.4-10.4 [facility] CenterHfajdvnYUPSOOWWTI0402-15-88 08:37:00* Test Item Value Reference Range Interpretation Comme nts MCHC (test code = MCHC) 33.8 32.0-36.0 [facility] CenterHblyhteHJBIVKEKDW1832-93-86 08:37:00* Test Item Value Reference Range Interpretation Comme nts Lymphocytes # (test code = L ymphocytes #) 1.8 1.0-5.5 [facility] CenterWlsnlmhOSUUUXMDAX1878-58-19 08:37:00* Test Item Value Reference Range Interpretation Comme nts Basophils # (test code = Basophils #) 0.1 <=0.2 [facility] CenterCyrfdooUQNFWNSSRZ5931-49-54 08:37:00* Test Item Value Reference Range Interpretation Comme nts Monocytes # (test code = Monocytes #) 2.4 <=0.8 [facility] CenterQmbijksFJKKVOIUMN7474-99-06 08:37:00* Test Item Value Reference Range Interpretation Comme nts Segs-Bands # (test code = Segs-Bands #) 13.5 1.5-8.1 [facility] CenterTwbhxodTGAUFTQOTN1811-46-35 08:37:00* Test Item Value Reference Range Interpretation Comme nts Segs (test code = Segs) 75.9 45.0-75.0 [facility] CenterSwypnhsHPVGBASOEW9282-82-04 08:37:00* Test Item Value Reference Range Interpretation Comme nts Monocytes (test code = Monocytes) 13.4 2.0-12.0 [facility] CenterQskofctPTJCUJUQFW6745-91-91 08:37:00* Test Item Value Reference Range Interpretation Comme nts Lymphocytes (test code = Lymphocytes) 10.0 20.0-40.0 [facility] CenterQogqvzuHNZZLTKLVC9504-09-15 08:37:00* Test Item Value Reference Range Interpretation Comme nts Basophils (test code = Basophils) 0.6 <=1.0 [facility] CenterOgjilawAKMWWDDWHA4549-35-29 08:37:00* Test Item Value Reference Range Interpretation Comme nts Eosinophils (test code = Eosinophils) 0.1 <=4.0 [facility]2017-09-26 08:37:00* Test Item Value Reference Range Interpretation Comme nts eGFR (test code = eGFR) 136 [facility]2017-09-26 08:37:00* Test Item Value Reference Range Interpretation Comme nts Glucose Lvl (test code = Glucose Lvl) 105 70-99 [facility]2017-09-26 08:37:00* Test Item Value Reference Range Interpretation Comme nts Sodium Lvl (test code = Sodium Lvl) 140 135-145 [facility]2017-09-26 08:37:00* Test Item Value Reference Range Interpretation Comme nts Creatinine Lvl (test code = Creatinine Lvl) 0.51 0.50-1.40 [facility]2017-09-26 08:37:00* Test Item Value Reference Range Interpretation Comme nts BUN (test code = BUN) 21 7-22 [facility]2017-09-26 08:37:00* Test Item Value Reference Range Interpretation Comme nts Calcium Lvl (test code = Calcium Lvl) 8.3 8.5-10.5 [facility]2017-09-26 08:37:00* Test Item Value Reference Range Interpretation Comme nts AGAP (test code = AGAP) 15.0 10.0-20.0 [facility]2017-09-26 08:37:00* Test Item Value Reference Range Interpretation Comme nts CO2 (test code = CO2) 24 24-32 [facility]2017-09-26 08:37:00* Test Item Value Reference Range Interpretation Comme nts Potassium Lvl (test code = P otassium Lvl) 4.0 3.5-5.1 [facility]2017-09-26 08:37:00* Test Item Value Reference Range Interpretation Comme nts Chloride Lvl (test code = Chloride Lvl) 105 95-109 [facility] CenterYylfxlwIPJMTYBEIG9676-94-29 08:37:00* Test Item Value Reference Range Interpretation Comme nts Hct (test code = Hct) 23.2 42.0-54.0 [facility] CenterGqwwbrbQBILLOBYVP5031-35-63 08:37:00* Test Item Value Reference Range Interpretation Comme nts MCV (test code = MCV) 89.3 80.0-94.0 [facility] CenterOrjtxeuPXEVSHLDOO1112-99-22 08:37:00* Test Item Value Reference Range Interpretation Comme nts MCH (test code = MCH) 30.2 pg 27.0-31.0 [facility] CenterZcckoxcPSBYLOBBIG8060-41-26 08:37:00* Test Item Value Reference Range Interpretation Comme nts RBC (test code = RBC) 2.60 4.70-6.10 [facility] CenterPlifzpaUEBKFUGYBB1393-09-96 08:37:00* Test Item Value Reference Range Interpretation Comme nts WBC (test code = WBC) 17.8 3.7-10.4 [facility] CenterPhimofeRZSKTDYPBO6960-07-19 08:37:00* Test Item Value Reference Range Interpretation Comme nts Hgb (test code = Hgb) 7.8 14.0-18.0 [facility] CenterVoqilqlLFJEYXEDGS5056-19-68 08:37:00* Test Item Value Reference Range Interpretation Comme nts RDW (test code = RDW) 14.2 11.5-14.5 [facility] CenterPllhnonJHGJKYNION1578-93-41 08:37:00* Test Item Value Reference Range Interpretation Comme nts Platelet (test code = Platelet) 1236 133-450 [facility] CenterMyesncgOEUTGWIIYS1527-98-47 08:37:00* Test Item Value Reference Range Interpretation Comme nts MPV (test code = MPV) 6.4 7.4-10.4 [facility] CenterRecpvmmJTGSKNNNQK7274-72-46 08:37:00* Test Item Value Reference Range Interpretation Comme nts MCHC (test code = MCHC) 33.8 32.0-36.0 [facility] CenterDzlppcnMFXWXWPIWR6329-16-12 08:37:00* Test Item Value Reference Range Interpretation Comme nts Lymphocytes # (test code = L ymphocytes #) 1.8 1.0-5.5 [facility] CenterDstyabcVCXPXKKECF9178-30-81 08:37:00* Test Item Value Reference Range Interpretation Comme nts Basophils # (test code = Basophils #) 0.1 See_Comment [Automated messa ge] The system which generated this result transmitted reference range: <=0.2. The reference range was not used to interpret this result as normal/abnormal. [facility] CenterDexebzqIMTYZYXGVO6424-02-77 08:37:00* Test Item Value Reference Range Interpretation Comme nts Monocytes # (test code = Monocytes #) 2.4 See_Comment [Automated messa ge] The system which generated this result transmitted reference range: <=0.8. The reference range was not used to interpret this result as normal/abnormal. [facility] CenterCneaqaeEVHCRILPBC3994-41-45 08:37:00* Test Item Value Reference Range Interpretation Comme nts Segs-Bands # (test code = Segs-Bands #) 13.5 1.5-8.1 [facility] [id number] 08:37:00* Test Item Value Reference Range Interpretation Comme nts Segs (test code = Segs) 75.9 45.0-75.0 [facility] CenterEydnmkfVQPNCVIEYZ7383-78-11 08:37:00* Test Item Value Reference Range Interpretation Comme nts Monocytes (test code = Monocytes) 13.4 2.0-12.0 [facility] HeightsWnbnenfRLEWESNAIC5173-77-57 08:37:00* Test Item Value Reference Range Interpretation Comme nts Lymphocytes (test code = Lymphocytes) 10.0 20.0-40.0 [facility] CenterAgsdshkZGIYVJBPQZ8450-24-04 08:37:00* Test Item Value Reference Range Interpretation Comme nts Basophils (test code = Basophils) 0.6 See_Comment [Automated messa ge] The system which generated this result transmitted reference range: <=1.0. The reference range was not used to interpret this result as normal/abnormal. [facility] HeightsTcckaazIIENVKBYER4870-02-64 08:37:00* Test Item Value Reference Range Interpretation Comme nts Eosinophils (test code = Eosinophils) 0.1 See_Comment [Automated messa ge] The system which generated this result transmitted reference range: <=4.0. The reference range was not used to interpret this result as normal/abnormal. [facility] [employer] [id number] 09:55:00* Test Item Value Reference Range Interpretation Comme nts ABO/Rh (test code = ABO/Rh) O POS [facility] [employer] [id number] 09:55:00* Test Item Value Reference Range Interpretation Comme nts Antibody Scrn (test code = Antibody Scrn) Negative (03/22/17 4:55 AM) [facility] Sur[employer]x [id number] 09:55:00* Test Item Value Reference Range Interpretation Comme nts eGFR (test code = eGFR) 150 [facility] SurIDx [id number] 09:55:00* Test Item Value Reference Range Interpretation Comme nts Sodium Lvl (test code = Sodium Lvl) 138 135-145 [facility] SurIDx [id number] 09:55:00* Test Item Value Reference Range Interpretation Comme nts Potassium Lvl (test code = P otassium Lvl) 3.7 3.5-5.1 [facility] SurIDx [id number] 09:55:00* Test Item Value Reference Range Interpretation Comme nts Creatinine Lvl (test code = Creatinine Lvl) 0.41 0.50-1.40 [facility] SurIDx [id number] 09:55:00* Test Item Value Reference Range Interpretation Comme nts BUN (test code = BUN) 25 7-22 [facility] [id number] 09:55:00* Test Item Value Reference Range Interpretation Comme nts Calcium Lvl (test code = Calcium Lvl) 8.7 8.5-10.5 [facility] HeightsGrasswire [id number] 09:55:00* Test Item Value Reference Range Interpretation Comme nts AGAP (test code = AGAP) 11.7 10.0-20.0 [facility] HeightsGrass[facility] [id number] 09:55:00* Test Item Value Reference Range Interpretation Comme nts Glucose Lvl (test code = Glucose Lvl) 82 70-99 [facility] [id number] 09:55:00* Test Item Value Reference Range Interpretation Comme nts CO2 (test code = CO2) 28 24-32 [facility] [id number] 09:55:00* Test Item Value Reference Range Interpretation Comme nts Chloride Lvl (test code = Chloride Lvl) 102 95-109 [facility] CenterEnzjzrsEYJBDAZQRL5417-84-90 09:55:00* Test Item Value Reference Range Interpretation Comme nts Eosinophils # (test code = E osinophils #) 0.3 <=0.5 [facility] CenterShbkkmcYEASKQENRF4462-78-25 09:55:00* Test Item Value Reference Range Interpretation Comme nts INR (test code = INR) 1.04 0.85-1.17 [facility] CenterZnvanxdNSZZLPBFWM2229-64-58 09:55:00* Test Item Value Reference Range Interpretation Comme nts PT (test code = PT) 13.8 s 12.0-14.7 [facility] HeightsNpsqwpfQOWBOMWKZD3724-32-94 09:55:00* Test Item Value Reference Range Interpretation Comme nts PTT (test code = PTT) 34.5 s 22.9-35.8 [facility] HospitalTT[facility] [employer] [id number] 09:55:00* Test Item Value Reference Range Interpretation Comme nts ABO/Rh (test code = ABO/Rh) O POS [facility] HospitalTTCP [employer] II [id number] 09:55:00* Test Item Value Reference Range Interpretation Comme nts Antibody Scrn (test code = Antibody Scrn) Negative (03/22/17 4:55 AM) [facility]2017-09-25 09:55:00* Test Item Value Reference Range Interpretation Comme nts eGFR (test code = eGFR) 150 [facility]2017-09-25 09:55:00* Test Item Value Reference Range Interpretation Comme nts Sodium Lvl (test code = Sodium Lvl) 138 135-145 [facility]2017-09-25 09:55:00* Test Item Value Reference Range Interpretation Comme nts Potassium Lvl (test code = P otassium Lvl) 3.7 3.5-5.1 [facility]2017-09-25 09:55:00* Test Item Value Reference Range Interpretation Comme nts Creatinine Lvl (test code = Creatinine Lvl) 0.41 0.50-1.40 [facility]2017-09-25 09:55:00* Test Item Value Reference Range Interpretation Comme nts BUN (test code = BUN) 25 7-22 [facility]2017-09-25 09:55:00* Test Item Value Reference Range Interpretation Comme nts Calcium Lvl (test code = Calcium Lvl) 8.7 8.5-10.5 [facility]2017-09-25 09:55:00* Test Item Value Reference Range Interpretation Comme nts AGAP (test code = AGAP) 11.7 10.0-20.0 [facility]2017-09-25 09:55:00* Test Item Value Reference Range Interpretation Comme nts Glucose Lvl (test code = Glucose Lvl) 82 70-99 [facility]2017-09-25 09:55:00* Test Item Value Reference Range Interpretation Comme nts CO2 (test code = CO2) 28 24-32 [facility]2017-09-25 09:55:00* Test Item Value Reference Range Interpretation Comme nts Chloride Lvl (test code = Chloride Lvl) 102 95-109 [facility] CenterRbkpmliTBSITCHUIQ4582-91-66 09:55:00* Test Item Value Reference Range Interpretation Comme nts Eosinophils # (test code = Eosinophils #) 0.3 See_Comment [Automated mess age] The system which generated this result transmitted reference range: <=0.5. The reference range was not used to interpret this result as normal/abnormal. [facility] CenterNmrttqsBIZYIUDHRF5995-74-73 09:55:00* Test Item Value Reference Range Interpretation Comme nts INR (test code = INR) 1.04 0.85-1.17 [facility] CenterLxgvdccDWKXGWKXUE8704-09-08 09:55:00* Test Item Value Reference Range Interpretation Comme nts PT (test code = PT) 13.8 s 12.0-14.7 [facility] CenterPbhllrlRTIAWHWVCD2457-83-68 09:55:00* Test Item Value Reference Range Interpretation Comme nts PTT (test code = PTT) 34.5 s 22.9-35.8 [facility] CenterFrhnspmSTTAURVXVT0422-19-77 09:59:00* Test Item Value Reference Range Interpretation Comme nts Polychrom (test code = Polychrom) Moderate *ABN*(03/21/17 4:59 AM) [facility] CenterEvthsuhQGPHRALMRO4558-00-11 09:59:00* Test Item Value Reference Range Interpretation Comme nts Plt Morph (test code = Plt Morph) Normal (03/21/17 4:59 AM) [facility] CenterDjuaofhYAUALBYKAF4408-54-23 09:59:00* Test Item Value Reference Range Interpretation Comme nts Polychrom (test code = Polychrom) Moderate *ABN*(03/21/17 4:59 AM) [facility] CenterGatkizbWXZJAEVTPV5296-88-54 09:59:00* Test Item Value Reference Range Interpretation Comme nts Plt Morph (test code = Plt Morph) Normal (03/21/17 4:59 AM) [facility]2017-09-23 18:46:00* Test Item Value Reference Range Interpretation Comme nts Albumin Lvl (test code = Albumin Lvl) 2.6 3.5-5.[address] [facility]SelpbazGSBFYWBZPU5458-52-18 18:46:00* Test Item Value Reference Range Interpretation Comme nts Prealbumin (test code = Prealbumin) 15.8 18.0-45.[address] [facility]LhgiuhqCKOYNYQTXH5753-37-73 18:46:00* Test Item Value Reference Range Interpretation Comme nts C-REACTIVE PROTEIN (test cod e = C-REACTIVE PROTEIN) 82.7 [facility]2017-09-23 18:46:00* Test Item Value Reference Range Interpretation Comme nts Albumin Lvl (test code = Albumin Lvl) 2.6 3.5-5.0 [facility] HeightsBugqxrhRMQXJRWTLS3130-70-79 18:46:00* Test Item Value Reference Range Interpretation Comme nts Prealbumin (test code = Prealbumin) 15.8 18.0-45.0 [facility] HeightsCfevtouRETRFHRWQL2544-13-53 18:46:00* Test Item Value Reference Range Interpretation Comme nts C-REACTIVE PROTEIN (test cod e = C-REACTIVE PROTEIN) 82.7 [facility]Min[facility] [id number] 10:32:00* Test Item Value Reference Range Interpretation Comme nts ABO/Rh (test code = ABO/Rh) O POS [facility] HospitalTT[facility] [employer] [id number] 10:32:00* Test Item Value Reference Range Interpretation Comme nts Antibody Scrn (test code = Antibody Scrn) Negative (03/19/17 5:32 AM) [facility] HeightsSmwjbrvQWRKIQCIQI3104-75-65 10:32:00* Test Item Value Reference Range Interpretation Comme nts PTT (test code = PTT) 41.4 s 22.9-35.8 [facility] HeightsUpywoskYRPYGGYNIX7188-63-21 10:32:00* Test Item Value Reference Range Interpretation Comme nts PT (test code = PT) 15.1 s 12.0-14.7 [facility] HeightsJlamacfZMYTIMMSLZ3893-75-69 10:32:00* Test Item Value Reference Range Interpretation Comme nts INR (test code = INR) 1.17 0.85-1.17 [facility] [id number] 10:32:00* Test Item Value Reference Range Interpretation Comme nts ABO/Rh (test code = ABO/Rh) O POS [facility] HeightsTuckerNuck [id number] 10:32:00* Test Item Value Reference Range Interpretation Comme nts Antibody Scrn (test code = Antibody Scrn) Negative (03/19/17 5:32 AM) [facility] HeightsXjawyaqOAZMDYXLRR3451-49-74 10:32:00* Test Item Value Reference Range Interpretation Comme nts PTT (test code = PTT) 41.4 s 22.9-35.8 [facility] HeightsFvoyhctOGVLNCHVGX1781-57-20 10:32:00* Test Item Value Reference Range Interpretation Comme nts PT (test code = PT) 15.1 s 12.0-14.7 [facility] CenterGsoniugOSZBCKMJVF7096-94-16 10:32:00* Test Item Value Reference Range Interpretation Comme nts INR (test code = INR) 1.17 0.85-1.17 [facility]2017-09-21 09:07:00* Test Item Value Reference Range Interpretation Comme nts Magnesium Lvl (test code = M agnesium Lvl) 2.3 1.8-2.4 [facility]2017-09-21 09:07:00* Test Item Value Reference Range Interpretation Comme nts Phosphorus (test code = Phosphorus) 3.9 2.5-4.5 [facility] CenterEdrjghrXVFTEZTOUU3768-22-55 09:07:00* Test Item Value Reference Range Interpretation Comme nts Target Cell (test code = Target Cell) Slight [facility] CenterPnnsyfjTGTTCZQZQI4028-16-76 09:07:00* Test Item Value Reference Range Interpretation Comme nts Polychrom (test code = Polychrom) Moderate *ABN*(03/18/17 4:07 AM) [facility] CenterQfthsssZFLSZSZLAD6402-71-48 09:07:00* Test Item Value Reference Range Interpretation Comme nts Macrocyte (test code = Macrocyte) 2+ *ABN*(03/18/17 4:07 AM) [facility] CenterSaeycnkOXSOFBRYMY7684-74-53 09:07:00* Test Item Value Reference Range Interpretation Comme nts Anisocyte (test code = Anisocyte) 1+ *ABN*(03/18/17 4:07 AM) [facility] CenterFiapyjyFGTGWDDAIH5529-53-42 09:07:00* Test Item Value Reference Range Interpretation Comme nts Plt Morph (test code = Plt Morph) Normal (03/18/17 4:07 AM) [facility]2017-09-21 09:07:00* Test Item Value Reference Range Interpretation Comme nts Magnesium Lvl (test code = M agnesium Lvl) 2.3 1.8-2.4 [facility]2017-09-21 09:07:00* Test Item Value Reference Range Interpretation Comme nts Phosphorus (test code = Phosphorus) 3.9 2.5-4.5 [facility] CenterYrfxuneRKYHQICSFT5649-10-56 09:07:00* Test Item Value Reference Range Interpretation Comme nts Target Cell (test code = Target Cell) [facility]light [facility] CenterLczzjagQAKMJHONEG4359-15-06 09:07:00* Test Item Value Reference Range Interpretation Comme nts Polychrom (test code = Polychrom) Moderate *ABN*(03/18/17 4:07 AM) [facility] CenterJekgccjDNUNEHGVJB1617-32-90 09:07:00* Test Item Value Reference Range Interpretation Comme nts Macrocyte (test code = Macrocyte) 2+ *ABN*(03/18/17 4:07 AM) [facility] CenterNhqebqvGXGMGGPCKX0042-20-21 09:07:00* Test Item Value Reference Range Interpretation Comme nts Anisocyte (test code = Anisocyte) 1+ *ABN*(03/18/17 4:07 AM) [facility] CenterRkjwnnaQHUMOEHNII6854-36-03 09:07:00* Test Item Value Reference Range Interpretation Comme nts Plt Morph (test code = Plt Morph) Normal (03/18/17 4:07 AM) [facility] HeightsCHEM [id number] 09:54:00* Test Item Value Reference Range Interpretation Comme nts Phosphorus (test code = Phosphorus) 4.7 2.5-4.5 [facility] HeightsCHEM [id number] 09:54:00* Test Item Value Reference Range Interpretation Comme nts Magnesium Lvl (test code = M agnesium Lvl) 2.2 1.8-2.4 [facility] HeightsCHEM [id number] 09:54:00* Test Item Value Reference Range Interpretation Comme nts Phosphorus (test code = Phosphorus) 4.7 2.5-4.5 [facility] HeightsCHEM [id number] 09:54:00* Test Item Value Reference Range Interpretation Comme nts Magnesium Lvl (test code = M agnesium Lvl) 2.2 1.8-2.4 [facility] HeightsIqfoqriXDTRFISKQB2893-40-41 05:27:00* Test Item Value Reference Range Interpretation Comme nts Prealbumin (test code = Prealbumin) 9.5 18.0-45.0 [facility] HeightsCnxsyhiRWVVCRBGGE8784-09-54 05:27:00* Test Item Value Reference Range Interpretation Comme nts C-REACTIVE PROTEIN (test cod e = C-REACTIVE PROTEIN) 151.0 [facility] HeightsLexpwatXNPCRKKTJT5275-67-00 05:27:00* Test Item Value Reference Range Interpretation Comme nts Prealbumin (test code = Prealbumin) 9.5 18.0-45.0 [facility] HeightsJwusxenVUCUSYXNIX0561-18-11 05:27:00* Test Item Value Reference Range Interpretation Comme nts C-REACTIVE PROTEIN (test cod e = C-REACTIVE PROTEIN) 151.0 [facility] [id number] 15:49:00* Test Item Value Reference Range Interpretation Comme nts ABO/Rh (test code = ABO/Rh) O POS [facility] [employer], [employer] DiCentral CompanyCity of Hope, [place] [id number] 15:49:00* Test Item Value Reference Range Interpretation Comme nts Antibody Scrn (test code = Antibody Scrn) Negative (03/14/17 10:49 AM) [facility] [employer] [facility] [id number] 15:49:00* Test Item Value Reference Range Interpretation Comme nts ABO/Rh (test code = ABO/Rh) O POS [facility] [employer] Di[employer] CompanySage Memorial HospitalDaily Sales Exchange [facility] [id number] 15:49:00* Test Item Value Reference Range Interpretation Comme nts Antibody Scrn (test code = Antibody Scrn) Negative (03/14/17 10:49 AM) [facility] AND [id number] 18:59:00* Test Item Value Reference Range Interpretation Comme nts UA Sq Epi (test code = UA Sq Epi) None Seen [facility] AND [id number] 18:59:00* Test Item Value Reference Range Interpretation Comme nts UA Ketones (test code = UA Ketones) TR [facility] AND [id number] 18:59:00* Test Item Value Reference Range Interpretation Comme nts UA Bili (test code = UA Bili) Negative *NA*(03/13/17 1:59 PM) [facility] AND [id number] 18:59:00* Test Item Value Reference Range Interpretation Comme nts UA Blood (test code = UA Blood) Negative (03/13/17 1:59 PM) [facility] AND [id number] 18:59:00* Test Item Value Reference Range Interpretation Comme nts UA Leuk Est (test code = UA Leuk Est) Negative (03/13/17 1:59 PM) [facility] AND [id number] 18:59:00* Test Item Value Reference Range Interpretation Comme nts UA Urobilinogen (test code = UA Urobilinogen) 2.0 0.1-1.0 [facility] AND [id number] 18:59:00* Test Item Value Reference Range Interpretation Comme nts UA Nitrite (test code = UA Nitrite) Negative (03/13/17 1:59 PM) [facility] AND [id number] 18:59:00* Test Item Value Reference Range Interpretation Comme nts UA Bacteria (test code = UA Bacteria) Occasional /HPF [facility] AND [id number] 18:59:00* Test Item Value Reference Range Interpretation Comme nts UA Mucus (test code = UA Mucus) Few /LPF [facility] AND [id number] 18:59:00* Test Item Value Reference Range Interpretation Comme nts UA RBC (test code = UA RBC) 1 <=2 [facility] [id number] 18:59:00* Test Item Value Reference Range Interpretation Comme nts UA WBC (test code = UA WBC) 1 <=5 [facility] AND [id number] 18:59:00* Test Item Value Reference Range Interpretation Comme nts UA Spec Grav (test code = UA Spec Grav) 1.024 [facility] AND [id number] 18:59:00* Test Item Value Reference Range Interpretation Comme nts UA Turbidity (test code = UA Turbidity) Clear (03/13/17 1:59 PM) [facility] AND [id number] 18:59:00* Test Item Value Reference Range Interpretation Comme nts UA Glucose (test code = UA Glucose) Negative mg/dL [facility] AND [id number] 18:59:00* Test Item Value Reference Range Interpretation Comme nts UA pH (test code = UA pH) 6.5 5.0-8.0 [facility] AND [id number] 18:59:00* Test Item Value Reference Range Interpretation Comme nts UA Protein (test code = UA Protein) 10 mg/dL [facility] AND [id number] 18:59:00* Test Item Value Reference Range Interpretation Comme nts UA Color (test code = UA Color) Yellow *NA*(03/13/17 1:59 PM) [facility] AND [id number] 18:59:00* Test Item Value Reference Range Interpretation Comme nts UA Sq Epi (test code = UA Sq Epi) None Seen [facility] AND [id number] 18:59:00* Test Item Value Reference Range Interpretation Comme nts UA Ketones (test code = UA Ketones) TR [facility] AND [id number] 18:59:00* Test Item Value Reference Range Interpretation Comme nts UA Bili (test code = UA Bili) Negative *NA*(03/13/17 1:59 PM) [facility] [id number] 18:59:00* Test Item Value Reference Range Interpretation Comme nts UA Blood (test code = UA Blood) Negative (03/13/17 1:59 PM) [facility] [id number] 18:59:00* Test Item Value Reference Range Interpretation Comme nts UA Leuk Est (test code = UA Leuk Est) Negative (03/13/17 1:59 PM) [facility] [id number] 18:59:00* Test Item Value Reference Range Interpretation Comme nts UA Urobilinogen (test code = UA Urobilinogen) 2.0 0.1-1.0 [facility] [id number] 18:59:00* Test Item Value Reference Range Interpretation Comme nts UA Nitrite (test code = UA Nitrite) Negative (03/13/17 1:59 PM) [facility] [id number] 18:59:00* Test Item Value Reference Range Interpretation Comme nts UA Bacteria (test code = UA Bacteria) Occasional /HPF [facility] AND [id number] 18:59:00* Test Item Value Reference Range Interpretation Comme nts UA Mucus (test code = UA Mucus) Few /LPF [facility] AND [id number] 18:59:00* Test Item Value Reference Range Interpretation Comme nts UA RBC (test code = UA RBC) 1 See_Comment [Automated messa ge] The system which generated this result transmitted reference range: <=2. The reference range was not used to interpret this result as normal/abnormal. [facility] AND [id number] 18:59:00* Test Item Value Reference Range Interpretation Comme nts UA WBC (test code = UA WBC) 1 See_Comment [Automated messa ge] The system which generated this result transmitted reference range: <=5. The reference range was not used to interpret this result as normal/abnormal. [facility] [id number] 18:59:00* Test Item Value Reference Range Interpretation Comme nts UA Spec Grav (test code = UA Spec Grav) 1.024 [facility] AND [id number] 18:59:00* Test Item Value Reference Range Interpretation Comme nts UA Turbidity (test code = UA Turbidity) Clear (03/13/17 1:59 PM) [facility] AND [id number] 18:59:00* Test Item Value Reference Range Interpretation Comme nts UA Glucose (test code = UA Glucose) Negative mg/dL [facility] AND [id number] 18:59:00* Test Item Value Reference Range Interpretation Comme nts UA pH (test code = UA pH) 6.5 5.0-8.0 [facility] AND [id number] 18:59:00* Test Item Value Reference Range Interpretation Comme nts UA Protein (test code = UA Protein) 10 mg/dL [facility] AND [id number] 18:59:00* Test Item Value Reference Range Interpretation Comme nts UA Color (test code = UA Color) Yellow *NA*(03/13/17 1:59 PM) [facility] CenterUvzismwDDVZZTGCIF1429-01-29 23:44:00* Test Item Value Reference Range Interpretation Comme nts G-value Rapid (test code = G -value Rapid) 12.1 5.0-11.6 [facility] CenterWhfqqvaSYLFCXJSCC3867-97-99 23:44:00* Test Item Value Reference Range Interpretation Comme nts Max Amplitude Rapid (test co de = Max Amplitude Rapid) 71 mm 52-71 [facility] CenterOanvamiJJCBDUNVFO5378-19-65 23:44:00* Test Item Value Reference Range Interpretation Comme nts Angle Rapid (test code = Ang le Rapid) 80 degrees 64-80 [facility] CenterGvbhjftKNMXSGNDEQ3105-09-15 23:44:00* Test Item Value Reference Range Interpretation Comme nts ACT (TEG) Rapid (test code = ACT (TEG) Rapid) 121 s 86-118 [facility] CenterRncqnndCKTPCZBGXE0889-69-64 23:44:00* Test Item Value Reference Range Interpretation Comme nts K-time Rapid (test code = K- time Rapid) 0.8 min 0.6-2.3 [facility] CenterQfvahhrPZRSSINKLI2790-66-24 23:44:00* Test Item Value Reference Range Interpretation Comme nts Split Point Rapid (test code = Split Point Rapid) 0.7 min [facility] CenterJqputhfEMMBVPCGOE6965-96-36 23:44:00* Test Item Value Reference Range Interpretation Comme nts R-time Rapid (test code = R- time Rapid) 0.8 min 0.4-0.7 [facility] CenterEwlchfpMWZGXTBJCR0491-27-98 23:44:00* Test Item Value Reference Range Interpretation Comme nts Estimated % Lysis Rapid (cristal t code = Estimated % Lysis Rapid) 1.3 <=7.5 [facility] CenterPmowfqfHMLIEXFQDR3582-00-85 23:44:00* Test Item Value Reference Range Interpretation Comme nts G-value Rapid (test code = G -value Rapid) 12.1 5.0-11.6 [facility] CenterIndluvxDCYVXKUGLY2338-09-30 23:44:00* Test Item Value Reference Range Interpretation Comme nts Max Amplitude Rapid (test co de = Max Amplitude Rapid) 71 mm 52-71 [facility] CenterPagnjkzXQUMBJHNMR9142-89-89 23:44:00* Test Item Value Reference Range Interpretation Comme nts Angle Rapid (test code = Ang le Rapid) 80 degrees 64-80 [facility] CenterGvbtirgVCGIPJKKQO4753-81-71 23:44:00* Test Item Value Reference Range Interpretation Comme nts ACT (TEG) Rapid (test code = ACT (TEG) Rapid) 121 s 86-118 [facility] CenterBkmuvabAUJZWSOGPF2164-04-47 23:44:00* Test Item Value Reference Range Interpretation Comme nts K-time Rapid (test code = K- time Rapid) 0.8 min 0.6-2.3 [facility] CenterAwurxolIPWECRJENK1996-61-64 23:44:00* Test Item Value Reference Range Interpretation Comme nts Split Point Rapid (test code = Split [place] Rapid) 0.7 min [facility] CenterQjbijipQCRYWEXTXU1957-94-68 23:44:00* Test Item Value Reference Range Interpretation Comme nts R-time Rapid (test code = R- time Rapid) 0.8 min 0.4-0.7 [facility] HeightsEsswuuoDARLZESHXG8699-58-84 23:44:00* Test Item Value Reference Range Interpretation Comme nts Estimated % Lysis Rapid (test code = Estimated % Lysis Rapid) 1.3 See_Comment [Automated messa ge] The system which generated this result transmitted reference range: <=7.5. The reference range was not used to interpret this result as normal/abnormal. [facility] Exchange [employer] [id number] 17:49:00* Test Item Value Reference Range Interpretation Comme nts RBC product (test code = RBC product) Product available (03/11/17 12:49 PM) [facility] BANK [id number] 17:49:00* Test Item Value Reference Range Interpretation Comme nts RBC product (test code = RBC product) Product available (03/11/17 12:49 PM) [facility]2017-09-14 16:03:00* Test Item Value Reference Range Interpretation Comme nts Bili Direct (test code = Bili Direct) 1.2 <=0.3 [facility] HospitalVengo LabsCONE [id number] 16:03:00* Test Item Value Reference Range Interpretation Comme nts Bili Total (test code = Bili Total) 1.7 0.2-1.3 [facility] [id number] 16:03:00* Test Item Value Reference Range Interpretation Comme nts Alk Phos (test code = Alk Phos) 76 39-136 [facility]2017-09-14 16:03:00* Test Item Value Reference Range Interpretation Comme nts ALT (test code = ALT) 76 <=65 [facility] [id number] 16:03:00* Test Item Value Reference Range Interpretation Comme nts AST (test code = AST) 57 <=37 [facility] [id number] 16:03:00* Test Item Value Reference Range Interpretation Comme nts Total Protein (test code = T otal Protein) 4.7 6.4-8.4 [facility]2017-09-14 16:03:00* Test Item Value Reference Range Interpretation Comme nts Albumin Lvl (test code = Albumin Lvl) 1.9 3.5-5.0 [facility] [id number] 16:03:00* Test Item Value Reference Range Interpretation Comme nts Bili Indirect (test code = B thi Indirect) 0.5 <=1.0 [facility]2017-09-14 16:03:00* Test Item Value Reference Range Interpretation Comme nts A/G Ratio (test code = A/G Ratio) 0.7 0.7-1.6 [facility]2017-09-14 16:03:00* Test Item Value Reference Range Interpretation Comme nts Globulin (test code = Globulin) 2.8 2.7-4.2 [facility]2017-09-14 16:03:00* Test Item Value Reference Range Interpretation Comme nts Lactic Acid Lvl (test code = Lactic Acid Lvl) 1.0 0.5-2.2 [facility]2017-09-14 16:03:00* Test Item Value Reference Range Interpretation Comme nts Bili Direct (test code = Bili Direct) 1.2 See_Comment [Automated messa ge] The system which generated this result transmitted reference range: <=0.3. The reference range was not used to interpret this result as normal/abnormal. [facility]2017-09-14 16:03:00* Test Item Value Reference Range Interpretation Comme nts Bili Total (test code = Bili Total) 1.7 0.2-1.3 [facility]2017-09-14 16:03:00* Test Item Value Reference Range Interpretation Comme nts Alk Phos (test code = Alk Phos) 76 39-136 [facility]2017-09-14 16:03:00* Test Item Value Reference Range Interpretation Comme nts ALT (test code = ALT) 76 See_Comment [A utomated message] The system which generated this result transmitted reference range: <=65. The reference range was not used to interpret this result as normal/abnormal. [facility]2017-09-14 16:03:00* Test Item Value Reference Range Interpretation Comme nts AST (test code = AST) 57 See_Comment [A utomated message] The system which generated this result transmitted reference range: <=37. The reference range was not used to interpret this result as normal/abnormal. [facility]2017-09-14 16:03:00* Test Item Value Reference Range Interpretation Comme nts Total Protein (test code = T otal Protein) 4.7 6.4-8.4 [facility]2017-09-14 16:03:00* Test Item Value Reference Range Interpretation Comme nts Albumin Lvl (test code = Albumin Lvl) 1.9 3.5-5.0 [facility]2017-09-14 16:03:00* Test Item Value Reference Range Interpretation Comme nts Bili Indirect (test code = Bili Indirect) 0.5 See_Comment [Automated message] The system which generated this result transmitted reference range: <=1.0. The reference range was not used to interpret this result as normal/abnormal. [facility] [id number] 16:03:00* Test Item Value Reference Range Interpretation Comme nts A/G Ratio (test code = A/G Ratio) 0.7 0.7-1.6 [facility]2017-09-14 16:03:00* Test Item Value Reference Range Interpretation Comme nts Globulin (test code = Globulin) 2.8 2.7-4.2 [facility]2017-09-14 16:03:00* Test Item Value Reference Range Interpretation Comme nts Lactic Acid Lvl (test code = Lactic Acid Lvl) 1.0 0.5-2.2 [facility] [id number] 11:27:00* Test Item Value Reference Range Interpretation Comme nts UA Nitrite (test code = UA Nitrite) Negative (03/11/17 6:27 AM) [facility] [id number] 11:27:00* Test Item Value Reference Range Interpretation Comme nts UA Mucus (test code = UA Mucus) Few /LPF [facility] [id number] 11:27:00* Test Item Value Reference Range Interpretation Comme nts UA Leuk Est (test code = UA Leuk Est) Negative (03/11/17 6:27 AM) [facility] [id number] 11:27:00* Test Item Value Reference Range Interpretation Comme nts UA RBC (test code = UA RBC) 1 <=2 [facility] [id number] 11:27:00* Test Item Value Reference Range Interpretation Comme nts UA WBC (test code = UA WBC) no gt <=5 [facility] [id number] 11:27:00* Test Item Value Reference Range Interpretation Comme nts UA Urobilinogen (test code = UA Urobilinogen) 4.0 0.1-1.0 [facility] [id number] 11:27:00* Test Item Value Reference Range Interpretation Comme nts UA Sq Epi (test code = UA Sq Epi) None [facility]en [facility] [id number] 11:27:00* Test Item Value Reference Range Interpretation Comme nts UA Blood (test code = UA Blood) Negative (03/11/17 6:27 AM) [facility] [id number] 11:27:00* Test Item Value Reference Range Interpretation Comme nts UA Ketones (test code = UA Ketones) Negative mg/dL [facility] [id number] 11:27:00* Test Item Value Reference Range Interpretation Comme nts UA Bili (test code = UA Bili) Small *ABN*(03/11/17 6:27 AM) [facility] [id number] 11:27:00* Test Item Value Reference Range Interpretation Comme nts UA pH (test code = UA pH) 5.5 5.0-8.0 [facility] [id number] 11:27:00* Test Item Value Reference Range Interpretation Comme nts UA Color (test code = UA Color) Dark Yellow *NA*(03/11/17 6:27 AM) [facility] [id number] 11:27:00* Test Item Value Reference Range Interpretation Comme nts UA Protein (test code = UA Protein) 20 mg/dL [facility] [id number] 11:27:00* Test Item Value Reference Range Interpretation Comme nts UA Turbidity (test code = UA Turbidity) Clear (03/11/17 6:27 AM) [facility] [id number] 11:27:00* Test Item Value Reference Range Interpretation Comme nts UA Spec Grav (test code = UA Spec Grav) 1.040 [facility] [id number] 11:27:00* Test Item Value Reference Range Interpretation Comme nts UA Glucose (test code = UA Glucose) Negative mg/dL [facility] [id number] 11:27:00* Test Item Value Reference Range Interpretation Comme nts UA Nitrite (test code = UA Nitrite) Negative (03/11/17 6:27 AM) [facility] [id number] 11:27:00* Test Item Value Reference Range Interpretation Comme nts UA Mucus (test code = UA Mucus) Few /LPF [facility] [id number] 11:27:00* Test Item Value Reference Range Interpretation Comme nts UA Leuk Est (test code = UA Leuk Est) Negative (03/11/17 6:27 AM) [facility] [id number] 11:27:00* Test Item Value Reference Range Interpretation Comme nts UA RBC (test code = UA RBC) 1 See_Comment [Automated Adisna ge] The system which generated this result transmitted reference range: <=2. The reference range was not used to interpret this result as normal/abnormal. [facility] [id number] 11:27:00* Test Item Value Reference Range Interpretation Comme nts UA WBC (test code = UA WBC) no gt See_Comment [Automated Adisna [facility]] The system which generated this result transmitted reference range: <=5. The reference range was not used to interpret this result as normal/abnormal. [facility] [id number] 11:27:00* Test Item Value Reference Range Interpretation Comme nts UA Urobilinogen (test code = UA Urobilinogen) 4.0 0.1-1.0 [facility] [id number] 11:27:00* Test Item Value Reference Range Interpretation Comme nts UA Sq Epi (test code = UA Sq Epi) None Seen [facility] [id number] 11:27:00* Test Item Value Reference Range Interpretation Comme nts UA Blood (test code = UA Blood) Negative (03/11/17 6:27 AM) [facility] [id number] 11:27:00* Test Item Value Reference Range Interpretation Comme nts UA Ketones (test code = UA Ketones) Negative mg/dL [facility] [id number] 11:27:00* Test Item Value Reference Range Interpretation Comme nts UA Bili (test code = UA Bili) Small *ABN*(03/11/17 6:27 AM) [facility] [id number] 11:27:00* Test Item Value Reference Range Interpretation Comme nts UA pH (test code = UA pH) 5.5 5.0-8.0 [facility] [id number] 11:27:00* Test Item Value Reference Range Interpretation Comme nts UA Color (test code = UA Color) Dark Yellow *NA*(03/11/17 6:27 AM) [facility] [id number] 11:27:00* Test Item Value Reference Range Interpretation Comme nts UA Protein (test code = UA Protein) 20 mg/dL [facility] [id number] 11:27:00* Test Item Value Reference Range Interpretation Comme nts UA Turbidity (test code = UA Turbidity) Clear (03/11/17 6:27 AM) [facility] [id number] 11:27:00* Test Item Value Reference Range Interpretation Comme nts UA Spec Grav (test code = UA Spec Grav) 1.040 [facility] [id number] 11:27:00* Test Item Value Reference Range Interpretation Comme nts UA Glucose (test code = UA Glucose) Negative mg/dL [facility] [id number] 09:55:00* Test Item Value Reference Range Interpretation Comme nts Polychrom (test code = Polychrom) Slight [facility] CenterFplirboESJVSLWORT7554-33-20 09:55:00* Test Item Value Reference Range Interpretation Comme nts Polychrom (test code = Polychrom) Slight [facility] CenterJrcsjpaEUBIQSBYFV9574-14-05 21:39:00* Test Item Value Reference Range Interpretation Comme nts PTT (test code = PTT) 36.1 s 22.9-35.8 [facility] CenterMkqepukPAOJIYBXHC7893-00-09 21:39:00* Test Item Value Reference Range Interpretation Comme nts PT (test code = PT) 15.6 s 12.0-14.7 [facility] CenterAcvtaxgGVVOMGFZKU9140-93-14 21:39:00* Test Item Value Reference Range Interpretation Comme nts INR (test code = INR) 1.21 0.85-1.17 [facility] CenterMwgyfqxJZWVDKTEOS1885-59-07 21:39:00* Test Item Value Reference Range Interpretation Comme nts PTT (test code = PTT) 36.1 s 22.9-35.8 [facility] CenterEpqccgpDTYWGLWUEM5694-26-81 21:39:00* Test Item Value Reference Range Interpretation Comme nts PT (test code = PT) 15.6 s 12.0-14.7 [facility] CenterTeogknwMKISFXSJEC7158-59-22 21:39:00* Test Item Value Reference Range Interpretation Comme nts INR (test code = INR) 1.21 0.85-1.17 [facility] CenterCajhgojGHEMBOMEWR1534-33-36 09:18:00* Test Item Value Reference Range Interpretation Comme nts Rouleaux (test code = Rouleaux) Present *ABN*(03/08/17 4:18 AM) [facility] CenterLekjrcaFEJJPWEIZQ2617-59-97 09:18:00* Test Item Value Reference Range Interpretation Comme nts Rouleaux (test code = Rouleaux) Present *ABN*(03/08/17 4:18 AM) [facility]7457[facility] 11:45:00* Test Item Value Reference Range Interpretation Comme nts Prealbumin (test code = Prealbumin) 7.7 18.0-45.[address] [facility]GmcwvlgJPSKIHLGEX2848-30-14 11:45:00* Test Item Value Reference Range Interpretation Comme nts Prealbumin (test code = Prealbumin) 7.7 18.0-45.0 [facility] [id number] 09:56:00* Test Item Value Reference Range Interpretation Comme nts C-REACTIVE PROTEIN (test cod e = C-REACTIVE PROTEIN) 177.0 [facility] [id number] 09:56:00* Test Item Value Reference Range Interpretation Comme nts C-REACTIVE PROTEIN (test cod e = C-REACTIVE PROTEIN) 177.0 [facility]2017-09-10 02:24:00* Test Item Value Reference Range Interpretation Comme nts Lactic Acid Lvl (test code = Lactic Acid Lvl) 0.8 0.5-2.2 [facility]2017-09-10 02:24:00* Test Item Value Reference Range Interpretation Comme nts Lactic Acid Lvl (test code = Lactic Acid Lvl) 0.8 0.5-2.2 [facility]2017-09-09 00:57:00* Test Item Value Reference Range Interpretation Comme nts Ca Norm WB (test code = Ca Norm WB) 1.09 1.05-1.25 [facility]2017-09-09 00:57:00* Test Item Value Reference Range Interpretation Comme nts Ca Ion WB (test code = Ca Ion WB) 1.04 1.05-1.25 [facility]2017-09-09 00:57:00* Test Item Value Reference Range Interpretation Comme nts Ca Norm WB (test code = Ca Norm WB) 1.09 1.05-1.25 [facility]2017-09-09 00:57:00* Test Item Value Reference Range Interpretation Comme nts Ca Ion WB (test code = Ca Ion WB) 1.04 1.05-1.25 [facility] CenterFgkysbbAYIAVFJBSN0973-06-20 14:26:00* Test Item Value Reference Range Interpretation Comme nts Anti-Xa Low Molecular Hepari n (test code = Anti-Xa Low Molecular Heparin) 0.22 [facility] CenterKrjlfehUILMLUUBNB5511-50-24 14:26:00* Test Item Value Reference Range Interpretation Comme nts Anti-Xa Low Molecular Hepari n (test code = Anti-Xa Low Molecular Heparin) 0.22 [facility]2017-09-07 10:06:00* Test Item Value Reference Range Interpretation Comme nts Ca Ion WB (test code = Ca Ion WB) 1.09 1.05-1.25 [facility]2017-09-07 10:06:00* Test Item Value Reference Range Interpretation Comme nts Ca Norm WB (test code = Ca Norm WB) 1.07 1.05-1.25 [facility]2017-09-07 10:06:00* Test Item Value Reference Range Interpretation Comme nts Ca Ion WB (test code = Ca Ion WB) 1.09 1.05-1.25 [facility]2017-09-07 10:06:00* Test Item Value Reference Range Interpretation Comme nts Ca Norm WB (test code = Ca Norm WB) 1.07 1.05-1.25 [facility]2017-09-07 01:45:00* Test Item Value Reference Range Interpretation Comme nts Lactic Acid Lvl (test code = Lactic Acid Lvl) 2.2 0.5-2.2 [facility]2017-09-07 01:45:00* Test Item Value Reference Range Interpretation Comme nts Lactic Acid Lvl (test code = Lactic Acid Lvl) 2.2 0.5-2.2 [facility]2017-09-06 21:00:00* Test Item Value Reference Range Interpretation Comme nts Bili Total (test code = Bili Total) 0.8 0.2-1.3 [facility]2017-09-06 21:00:00* Test Item Value Reference Range Interpretation Comme nts ALT (test code = ALT) 42 <=65 [facility]2017-09-06 21:00:00* Test Item Value Reference Range Interpretation Comme nts Alk Phos (test code = Alk Phos) 34 39-136 [facility]2017-09-06 21:00:00* Test Item Value Reference Range Interpretation Comme nts AST (test code = AST) 108 <=37 [facility]2017-09-06 21:00:00* Test Item Value Reference Range Interpretation Comme nts Total Protein (test code = T otal Protein) 5.2 6.4-8.4 [facility]2017-09-06 21:00:00* Test Item Value Reference Range Interpretation Comme nts Albumin Lvl (test code = Albumin Lvl) 3.7 3.5-5.0 [facility]2017-09-06 21:00:00* Test Item Value Reference Range Interpretation Comme nts A/G Ratio (test code = A/G Ratio) 2.5 0.7-1.6 [facility]2017-09-06 21:00:00* Test Item Value Reference Range Interpretation Comme nts Globulin (test code = Globulin) 1.5 2.7-4.2 [facility]2017-09-06 21:00:00* Test Item Value Reference Range Interpretation Comme nts B/C Ratio (test code = B/C Ratio) 17 6-25 [facility] CenterHpivxdoXPCVYNNPLV2087-79-48 21:00:00* Test Item Value Reference Range Interpretation Comme nts Estimated % Lysis Rapid (cristal t code = Estimated % Lysis Rapid) 0.6 <=7.5 [facility] CenterBteiezeZKFDSOWJMP5137-23-18 21:00:00* Test Item Value Reference Range Interpretation Comme nts R-time Rapid (test code = R- time Rapid) 0.8 min 0.4-0.7 [facility] CenterHvmmqooPBITJCZGHQ5174-59-46 21:00:00* Test Item Value Reference Range Interpretation Comme nts Split Point Rapid (test code = Split Point Rapid) 0.6 min [facility] CenterSoezvtmJZZMXSWQDR4441-71-13 21:00:00* Test Item Value Reference Range Interpretation Comme nts Angle Rapid (test code = Ang le Rapid) 70 degrees 64-80 [facility] CenterRqaeeboNKMWHSYRBN1231-90-49 21:00:00* Test Item Value Reference Range Interpretation Comme nts K-time Rapid (test code = K- time Rapid) 1.7 min 0.6-2.3 [facility] CenterCnyrhmhGALSWJLIPU5596-35-92 21:00:00* Test Item Value Reference Range Interpretation Comme nts Max Amplitude Rapid (test co de = Max Amplitude Rapid) 59 mm 52-71 [facility] CenterSatmfvvHRVLBMIPOL0210-97-46 21:00:00* Test Item Value Reference Range Interpretation Comme nts G-value Rapid (test code = G -value Rapid) 7.2 5.0-11.6 [facility] CenterUiaknymTZWFCAOEEZ0434-91-64 21:00:00* Test Item Value Reference Range Interpretation Comme nts ACT (TEG) Rapid (test code = ACT (TEG) Rapid) 121 s 86-118 [facility]2017-09-06 21:00:00* Test Item Value Reference Range Interpretation Comme nts Ca Ion WB (test code = Ca Ion WB) 1.06 1.05-1.25 [facility]2017-09-06 21:00:00* Test Item Value Reference Range Interpretation Comme nts Ca Norm WB (test code = Ca Norm WB) 1.02 1.05-1.25 [facility] [id number] 21:00:00* Test Item Value Reference Range Interpretation Comme nts Bili Total (test code = Bili Total) 0.8 0.2-1.3 [facility]2017-09-06 21:00:00* Test Item Value Reference Range Interpretation Comme nts ALT (test code = ALT) 42 See_Comment [A utomated message] The system which generated this result transmitted reference range: <=65. The reference range was not used to interpret this result as normal/abnormal. [facility]2017-09-06 21:00:00* Test Item Value Reference Range Interpretation Comme nts Alk Phos (test code = Alk Phos) 34 39-136 [facility]2017-09-06 21:00:00* Test Item Value Reference Range Interpretation Comme nts AST (test code = AST) 108 See_Comment [A utomated message] The system which generated this result transmitted reference range: <=37. The reference range was not used to interpret this result as normal/abnormal. [facility]2017-09-06 21:00:00* Test Item Value Reference Range Interpretation Comme nts Total Protein (test code = T otal Protein) 5.2 6.4-8.4 [facility]2017-09-06 21:00:00* Test Item Value Reference Range Interpretation Comme nts Albumin Lvl (test code = Albumin Lvl) 3.7 3.5-5.0 [facility]2017-09-06 21:00:00* Test Item Value Reference Range Interpretation Comme nts A/G Ratio (test code = A/G Ratio) 2.5 0.7-1.6 [facility]2017-09-06 21:00:00* Test Item Value Reference Range Interpretation Comme nts Globulin (test code = Globulin) 1.5 2.7-4.2 [facility]2017-09-06 21:00:00* Test Item Value Reference Range Interpretation Comme nts B/C Ratio (test code = B/C Ratio) 17 6-25 [facility] [id number] 21:00:00* Test Item Value Reference Range Interpretation Comme nts Estimated % Lysis Rapid (test code = Estimated % Lysis Rapid) 0.6 See_Comment [Automated messa ge] The system which generated this result transmitted reference range: <=7.5. The reference range was not used to interpret this result as normal/abnormal. [facility] CenterXwhkqcuHTKOLJDTRT2003-76-85 21:00:00* Test Item Value Reference Range Interpretation Comme nts R-time Rapid (test code = R- time Rapid) 0.8 min 0.4-0.7 [facility] CenterHozlallZHDLVJDXLT5063-20-02 21:00:00* Test Item Value Reference Range Interpretation Comme nts Split Point Rapid (test code = Split Point Rapid) 0.6 min [facility] CenterIouloveDSOVXNLLGH5976-43-74 21:00:00* Test Item Value Reference Range Interpretation Comme nts Angle Rapid (test code = Ang le Rapid) 70 degrees 64-80 [facility] CenterVewinchKMJHIZBDIA6634-92-37 21:00:00* Test Item Value Reference Range Interpretation Comme nts K-time Rapid (test code = K- time Rapid) 1.7 min 0.6-2.3 [facility] CenterNjmcoipVFKUYZZIEC1810-19-49 21:00:00* Test Item Value Reference Range Interpretation Comme nts Max Amplitude Rapid (test co de = Max Amplitude Rapid) 59 mm 52-71 [facility] CenterEflsovmXOMXJBDGFN5439-64-78 21:00:00* Test Item Value Reference Range Interpretation Comme nts G-value Rapid (test code = G -value Rapid) 7.2 5.0-11.6 [facility] CenterWxemsxiKEGGKEMPMH2267-67-79 21:00:00* Test Item Value Reference Range Interpretation Comme nts ACT (TEG) Rapid (test code = ACT (TEG) Rapid) 121 s 86-118 [facility]RO[facility] [id number] 21:00:00* Test Item Value Reference Range Interpretation Comme nts Ca Ion WB (test code = Ca Ion WB) 1.06 1.05-1.25 [facility] [id number] 21:00:00* Test Item Value Reference Range Interpretation Comme nts Ca Norm WB (test code = Ca Norm WB) 1.02 1.05-1.25 [facility] [id number] 10:44:00* Test Item Value Reference Range Interpretation Comme nts UDS Note (test code = UDS Note) See Note (03/03/17 5:44 AM) [facility] [id number] 10:44:00* Test Item Value Reference Range Interpretation Comme nts U Amph Scr (test code = U Amph Scr) Negative *NA*(03/03/17 5:44 AM) [facility] [id number] 10:44:00* Test Item Value Reference Range Interpretation Comme nts U Benzodia Scr (test code = U Benzodia Scr) Positive *ABN*(03/03/17 5:44 AM) [facility] [id number] 10:44:00* Test Item Value Reference Range Interpretation Comme nts U Mariana Scr (test code = U Mariana Scr) Negative *NA*(03/03/17 5:44 AM) [facility] [id number] 10:44:00* Test Item Value Reference Range Interpretation Comme nts U Cocaine Scr (test code = U Cocaine Scr) Negative *NA*(03/03/17 5:44 AM) [facility] [id number] 10:44:00* Test Item Value Reference Range Interpretation Comme nts U Phencyc Scr (test code = U Phencyc Scr) Negative *NA*(03/03/17 5:44 AM) [facility] [id number] 10:44:00* Test Item Value Reference Range Interpretation Comme nts U Opiate Scr (test code = U Opiate Scr) Negative *NA*(03/03/17 5:44 AM) [facility] [id number] 10:44:00* Test Item Value Reference Range Interpretation Comme nts U Cannab Scr (test code = U Cannab Scr) Negative *NA*(03/03/17 5:44 AM) [facility] He[id number] 10:44:00* Test Item Value Reference Range Interpretation Comme nts Estimated % Lysis Rapid (cristal t code = Estimated % Lysis Rapid) 0.0 <=7.5 [id number] 10:44:00* Test Item Value Reference Range Interpretation Comme nts G-value Rapid (test code = G -value Rapid) 7.2 5.0-11.6 [id number] 10:44:00* Test Item Value Reference Range Interpretation Comme nts Max Amplitude Rapid (test co de = Max Amplitude Rapid) 59 mm 52-71 [facility]BxtaxfyZCWTIHWDPU7477-37-62 10:44:00* Test Item Value Reference Range Interpretation Comme nts Split Point Rapid (test code = Split Point Rapid) 0.5 min [facility] CenterJpnydllEJLHDPFBOP5720-55-54 10:44:00* Test Item Value Reference Range Interpretation Comme nts Angle Rapid (test code = Ang le Rapid) 69 degrees 64-80 [facility] CenterTqrjqmoDFUJHRQDOX5452-11-04 10:44:00* Test Item Value Reference Range Interpretation Comme nts R-time Rapid (test code = R- time Rapid) 0.6 min 0.4-0.7 [facility] CenterWkrdypyBXSSNENXYJ6366-80-43 10:44:00* Test Item Value Reference Range Interpretation Comme nts K-time Rapid (test code = K- time Rapid) 2.2 min 0.6-2.3 [facility] CenterJvxsrxoSRVIZBLXFG6841-17-44 10:44:00* Test Item Value Reference Range Interpretation Comme nts ACT (TEG) Rapid (test code = ACT (TEG) Rapid) 105 s 86-118 [facility]2017-09-06 10:44:00* Test Item Value Reference Range Interpretation Comme nts UA Leuk Est (test code = UA Leuk Est) Negative (03/03/17 5:44 AM) [facility]2017-09-06 10:44:00* Test Item Value Reference Range Interpretation Comme nts UA Blood (test code = UA Blood) Moderate *ABN*(03/03/17 5:44 AM) [facility]2017-09-06 10:44:00* Test Item Value Reference Range Interpretation Comme nts UA WBC (test code = UA WBC) 1 <=5 [facility]2017-09-06 10:44:00* Test Item Value Reference Range Interpretation Comme nts UA Nitrite (test code = UA Nitrite) Negative (03/03/17 5:44 AM) [facility]2017-09-06 10:44:00* Test Item Value Reference Range Interpretation Comme nts UA Bili (test code = UA Bili) Negative *NA*(03/03/17 5:44 AM) [facility]2017-09-06 10:44:00* Test Item Value Reference Range Interpretation Comme nts UA Ketones (test code = UA Ketones) Negative mg/dL [facility] [id number] 10:44:00* Test Item Value Reference Range Interpretation Comme nts UA Glucose (test code = UA Glucose) Negative mg/dL [facility] [id number] 10:44:00* Test Item Value Reference Range Interpretation Comme nts UA pH (test code = UA pH) 5.5 5.0-8.0 [facility] [id number] 10:44:00* Test Item Value Reference Range Interpretation Comme nts UA Protein (test code = UA Protein) 30 mg/dL [facility] [id number] 10:44:00* Test Item Value Reference Range Interpretation Comme nts UA Turbidity (test code = UA Turbidity) Clear (03/03/17 5:44 AM) [facility] [id number] 10:44:00* Test Item Value Reference Range Interpretation Comme nts UA Color (test code = UA Color) Yellow *NA*(03/03/17 5:44 AM) [facility] [id number] 10:44:00* Test Item Value Reference Range Interpretation Comme nts UA Urobilinogen (test code = UA Urobilinogen) <=1.0 mg/dL 0.1-1.0 [facility] [id number] 10:44:00* Test Item Value Reference Range Interpretation Comme nts UA Spec Grav (test code = UA Spec Grav) >=1.050 *ABN*(03/03/17 5:44 AM) [facility] [id number] 10:44:00* Test Item Value Reference Range Interpretation Comme nts UA Gran Cast (test code = UA Gran Cast) 2 [facility] [id number] 10:44:00* Test Item Value Reference Range Interpretation Comme nts UA Mucus (test code = UA Mucus) Few /LPF [facility] [id number] 10:44:00* Test Item Value Reference Range Interpretation Comme nts UA Hyal Cast (test code = UA Hyal Cast) 13 <=2 [facility] [id number] 10:44:00* Test Item Value Reference Range Interpretation Comme nts UA RBC (test code = UA RBC) 1 <=2 [facility] [id number] 10:44:00* Test Item Value Reference Range Interpretation Comme nts UA Sq Epi (test code = UA Sq Epi) None [facility] [id number] 10:44:00* Test Item Value Reference Range Interpretation Comme nts UDS Note (test code = UDS Note) See Note (03/03/17 5:44 AM) [facility] [id number] 10:44:00* Test Item Value Reference Range Interpretation Comme nts U Amph Scr (test code = U Amph Scr) Negative *NA*(03/03/17 5:44 AM) [facility] [id number] 10:44:00* Test Item Value Reference Range Interpretation Comme nts U Benzodia Scr (test code = U Benzodia Scr) Positive *ABN*(03/03/17 5:44 AM) [facility] [id number] 10:44:00* Test Item Value Reference Range Interpretation Comme nts U Mariana Scr (test code = U Mariana Scr) Negative *NA*(03/03/17 5:44 AM) [facility] [id number] 10:44:00* Test Item Value Reference Range Interpretation Comme nts U Cocaine Scr (test code = U Cocaine Scr) Negative *NA*(03/03/17 5:44 AM) [facility] [id number] 10:44:00* Test Item Value Reference Range Interpretation Comme nts U Phencyc Scr (test code = U Phencyc Scr) Negative *NA*(03/03/17 5:44 AM) [facility] [id number] 10:44:00* Test Item Value Reference Range Interpretation Comme nts U Opiate Scr (test code = U Opiate Scr) Negative *NA*(03/03/17 5:44 AM) [facility] [id number] 10:44:00* Test Item Value Reference Range Interpretation Comme nts U Cannab Scr (test code = U Cannab Scr) Negative *NA*(03/03/17 5:44 AM) [facility]fdnylVDNKJTBSJK2380-65-11 10:44:00* Test Item Value Reference Range Interpretation Comme nts Estimated % Lysis Rapid (test code = Estimated % Lysis Rapid) 0.0 See_Comment [Automated messa ge] The system which generated this result transmitted reference range: <=7.5. The reference range was not used to interpret this result as normal/abnormal. [facility] CenterYvkrxfpBMCBRYMKCR2498-73-22 10:44:00* Test Item Value Reference Range Interpretation Comme nts G-value Rapid (test code = G -value Rapid) 7.2 5.0-11.6 [facility] CenterUgaeshdQAYRUVTOGF0742-68-12 10:44:00* Test Item Value Reference Range Interpretation Comme nts Max Amplitude Rapid (test co de = Max Amplitude Rapid) 59 mm 52-71 [facility] CenterKbueowpKTUAODDDPG8209-57-29 10:44:00* Test Item Value Reference Range Interpretation Comme nts Split Point Rapid (test code = Split Point Rapid) 0.5 min [facility] CenterWtuhmxyOPBOALZSAC3772-13-60 10:44:00* Test Item Value Reference Range Interpretation Comme nts Angle Rapid (test code = Ang le Rapid) 69 degrees 64-80 [facility] CenterUmlurriCTDPMRWNOD0752-86-85 10:44:00* Test Item Value Reference Range Interpretation Comme nts R-time Rapid (test code = R- time Rapid) 0.6 min 0.4-0.7 [facility] Cent[id number] 10:44:00* Test Item Value Reference Range Interpretation Comme nts K-time Rapid (test code = K- time Rapid) 2.2 min 0.6-2.3 [facility] CenterDyslrclAVCTZHPXDR9773-93-38 10:44:00* Test Item Value Reference Range Interpretation Comme nts ACT (TEG) Rapid (test code = ACT (TEG) Rapid) 105 s 86-118 [facility]2017-09-06 10:44:00* Test Item Value Reference Range Interpretation Comme nts UA Leuk Est (test code = UA Leuk Est) Negative (03/03/17 5:44 AM) [facility]2017-09-06 10:44:00* Test Item Value Reference Range Interpretation Comme nts UA Blood (test code = UA Blood) Moderate *ABN*(03/03/17 5:44 AM) [facility]2017-09-06 10:44:00* Test Item Value Reference Range Interpretation Comme nts UA WBC (test code = UA WBC) 1 See_Comment [Automated messa ge] The system which generated this result transmitted reference range: <=5. The reference range was not used to interpret this result as normal/abnormal. [facility] [id number] 10:44:00* Test Item Value Reference Range Interpretation Comme nts UA Nitrite (test code = UA Nitrite) Negative (03/03/17 5:44 AM) [facility] [id number] 10:44:00* Test Item Value Reference Range Interpretation Comme nts UA Bili (test code = UA Bili) Negative *NA*(03/03/17 5:44 AM) [facility] [id number] 10:44:00* Test Item Value Reference Range Interpretation Comme nts UA Ketones (test code = UA Ketones) Negative mg/dL [facility] [id number] 10:44:00* Test Item Value Reference Range Interpretation Comme nts UA Glucose (test code = UA Glucose) Negative mg/dL [facility] [id number] 10:44:00* Test Item Value Reference Range Interpretation Comme nts UA pH (test code = UA pH) 5.5 5.0-8.0 [facility] [id number] 10:44:00* Test Item Value Reference Range Interpretation Comme nts UA Protein (test code = UA Protein) 30 mg/dL [facility] [id number] 10:44:00* Test Item Value Reference Range Interpretation Comme nts UA Turbidity (test code = UA Turbidity) Clear (03/03/17 5:44 AM) [facility] [id number] 10:44:00* Test Item Value Reference Range Interpretation Comme nts UA Color (test code = UA Color) Yellow *NA*(03/03/17 5:44 AM) [facility] [id number] 10:44:00* Test Item Value Reference Range Interpretation Comme nts UA Urobilinogen (test code = UA Urobilinogen) <=1.0 mg/dL 0.1-1.0 [facility] [id number] 10:44:00* Test Item Value Reference Range Interpretation Comme nts UA Spec Grav (test code = UA Spec Grav) >=1.050 *ABN*(03/03/17 5:44 AM) [facility] AND [id number] 10:44:00* Test Item Value Reference Range Interpretation Comme nts UA Gran Cast (test code = UA Gran Cast) 2 [facility] [id number] 10:44:00* Test Item Value Reference Range Interpretation Comme nts UA Mucus (test code = UA Mucus) Few /LPF [facility] [id number] 10:44:00* Test Item Value Reference Range Interpretation Comme nts UA Hyal Cast (test code = UA Hyal Cast) 13 See_Comment [Automated message] The system which generated this result transmitted reference range: <=2. The reference range was not used to interpret this result as normal/abnormal. [facility] [id number] 10:44:00* Test Item Value Reference Range Interpretation Comme nts UA RBC (test code = UA RBC) 1 See_Comment [Automated messa ge] The system which generated this result transmitted reference range: <=2. The reference range was not used to interpret this result as normal/abnormal. [facility] [id number] 10:44:00* Test Item Value Reference Range Interpretation Comme nts UA Sq Epi (test code = UA Sq Epi) None Seen [place] [address]2017-09-06 05:05:00* Test Item Value Reference Range Interpretation Comme nts Ethanol Lvl (test code = Ethanol Lvl) 122 [place] [address]2017-09-06 05:05:00* Test Item Value Reference Range Interpretation Comme nts Etoh (%) (test code = Etoh (%)) 0.122 [facility]YtpbvkdIOZWKBOBJO6014-07-94 05:05:00* Test Item Value Reference Range Interpretation Comme nts Ethanol Lvl (test code = Ethanol Lvl) 122 [facility]HpfsfbjKNFMUMQICX7794-17-25 05:05:00* Test Item Value Reference Range Interpretation Comme nts Etoh (%) (test code = Etoh (%)) 0.122 [facility]
--- NOTE | 2023-06-22 22:52 | RAD REPORT ---
EXAM DESCRIPTION: CT - Head Brain Wo Cont - 06/22/2023 10:43 pm CLINICAL HISTORY: Right ear pain COMPARISON: No comparisons TECHNIQUE: All CT scans are performed using dose optimization technique as appropriate and may inclu de automated exposure control or mA/KV adjustment according to patient size. FINDINGS: No intracranial hemorrhage, hydrocephalus or extra-axial fluid collection.No areas of brai n edema or evidence of midline shift. The paranasal sinuses and mastoids are clear. The calvarium is intact. Stent present in the distal ri ght cervical ICA. IMPRESSION: No acute intracranial abnormality. No mastoid fluid. Right distal cervical ICA stent.
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
--- NOTE | 2023-06-23 00:11 | ER ---
Nurse's Notes [facility] Name: Dominick Mcbride Age: 42 yrs Sex: Male : 1980 Arrival Date: 06/22/2023 Time: 20:11 Bed 18 Private MD: Diagnosis: Acute serous otitis media, right ear Presentation: 06/22 20:24 Chief complaint: Patient states: Pain in my right ear down my neck, into my jaw. vc1 Coronavirus screen: Client denies travel out of the [place] in the last 14 days. At this time, the client does not indicate any symptoms associated with coronavirus-19. Ebola Screen: Patient negative for fever greater than or equal to 101.5 degrees Fahrenheit, and additional compatible Ebola Virus Disease symptoms Patient denies exposure to infectious person. Patient denies travel to an Ebola-affected area in the 21 days before illness onset. No symptoms or risks identified at this time. Risk Assessment: Do you want to hurt yourself or someone else? Patient reports no desire to harm self or others. Onset of symptoms was June 19, 2023. 20:24 Method Of Arrival: Ambulatory vc1 20:24 Acuity: RIGOBERTO 4 vc1 20:28 Initial Sepsis Screen: Does the patient meet any 2 criteria? No. Patient's initial vc1 sepsis screen is negative. Does the patient have a suspected source of infection? No. Patient's initial sepsis screen is negative. Historical: - Allergies: 20:27 No Known Allergies; vc1 - PMHx: 20:27 Cerebrovascular accident; vc1 - Immunization history:: Client reports having NOT received the Covid vaccine. - Social history:: Smoking status: Patient reports the use of cigarette tobacco products, 3/day. - Family history:: not pertinent. Screenin:08 [facility] ED Fall Risk Assessment (Adult) History of falling in the last 3 months, me1 including since admission No falls in past 3 months (0 pts) Confusion or Disorientation No (0 pts) Intoxicated or Sedated No (0 pts) Impaired Gait No (0 pts) Mobility Assist Device Used No (0 pt) Altered Elimination No (0 pt) Score/Fall Risk Level 0 - 2 = Low Risk Maintained a safe environment, Provided non-skid footwear, Hourly rounding (assess needs \T\ fall precautionary measures) done. Abuse screen: Denies threats or abuse. Nutritional screening: No deficits noted. Tuberculosis screening: No symptoms or risk factors identified. Assessment: 20:57 General: Appears uncomfortable, well groomed, well developed, well nourished, Behavior me1 is calm, cooperative, appropriate for age, Reports Pain in my right ear down my neck, into my jaw. Pain: Complains of pain in right ear canal Pain radiates to right submandibular area and right sternocleidomastoid Pain currently is 4 out of 10 on a pain scale. Quality of pain is described as throbbing, Pain began Is intermittent. Neuro: Level of Consciousness is awake, alert, obeys commands, Oriented to person, place, time, situation, Appropriate for age. Cardiovascular: Capillary refill < 3 seconds Patient's skin is warm and dry. Respiratory: Airway is patent Respiratory effort is even, unlabored, Respiratory pattern is regular, symmetrical. EENT: Reports pain in right ear Pain is 4 out of 10 on a pain scale. 06/23 00:01 Reassessment: No changes from previously documented assessment. Patient and/or family vc1 updated on plan of care and expected duration. Pain level reassessed. Patient is alert, oriented x 3, equal unlabored respirations, skin warm/dry/pink. Vital Signs: 06/22 20:28 BP 129 / 77; Pulse 65; Resp 16; Temp 98.8; Pulse Ox 100% ; vc1 20:28 Weight 63.5 kg; Height 5 ft. 10 in. ; Pain 5/10; vc1 21:05 BP 120 / 77; Pulse 60; Resp 18; Pulse Ox 100% on R/A; me1 21:30 BP 120 / 80; Pulse 57; Resp 18; Pulse Ox 100% on R/A; me1 23:42 BP 110 / 66; Pulse 52; Resp 18; Pulse Ox 99% on R/A; me1 20:28 Body Mass Index 20.09 (63.50 kg, 177.8 cm) vc1 20:28 Pain Scale: Adult vc1 ED Course: 20:20 Patient arrived in ED. mr 20:21 Seven Mitchell MD is Attending Physician. sp4 20:25 Triage completed. vc1 20:28 Arm band placed on left wrist. vc1 20:31 Dona Mcfarland, MARRY is Primary Nurse. me1 21:08 Patient has correct armband on for positive identification. Bed in low position. Call me1 light in reach. Side rails up X 1. Provided Education on: POC. Verbalized understanding. . 21:08 No provider procedures requiring assistance completed. me1 22:45 CT Head Brain wo Cont In Process Unspecified. EDMS 06/23 00:02 Report received from MARRY Carcamo. vc1 00:10 Bettina Gamboa MD is Referral Physician. sp4 00:18 Patient did not have IV access during this emergency room visit. vc1 Administered Medications: 06/22 20:48 Not Given (Patient Refused): acetaminophen-codeine(300 mg-30 mg) 2 tabs PO once; RASS me1 on ADMIN: Combtv4, Very Agttd3, Agttd2, Rstlss1, AlertClm0, Drwsy-1, Lt Sdtn-2, Mod Sdtn-3, Dp Sdtn-4, UnArsble-5 20:49 Not Given (Patient Refused): [id number] mg IM once me1 21:28 Drug: AZITHromycin PO 500 mg PO once Route: PO; me1 22:03 Follow up: Response: No adverse reaction me1 21:28 Drug: Acetaminophen-Codeine PO (300 mg-30 mg) 2 tabs PO once; RASS on ADMIN: Combtv4, me1 Very Agttd3, Agttd2, Rstlss1, AlertClm0, Drwsy-1, Lt Sdtn-2, Mod Sdtn-3, Dp Sdtn-4, UnArsble-5 Route: PO; 22:04 Follow up: Response: No adverse reaction; Pain is decreased me1 21:28 Drug: Ketorolac IM 60 mg IM once Route: IM; Site: right gluteus; me1 22:04 Follow up: Response: No adverse reaction; Pain is decreased me1 Medication: 21:10 VIS not applicable for this client. me1 Outcome: 06/23 00:10 Discharge ordered by . sp4 00:18 Discharged to home ambulatory, vc1 00:18 Condition: good 00:18 Discharge instructions given to patient, Instructed on discharge instructions, follow up and referral plans. medication usage, Demonstrated understanding of instructions, follow-up care, medications, Prescriptions given X 3, 00:19 Patient left the ED. vc1 Signatures: Dispatcher [employer] ED Alison Hall, Reg Reg mr Isaura Weller, RN RN vc1 Seven Mitchell MD MD sp4 Dona Mcfarland RN RN me1 Corrections: (The following items were deleted from the chart) 06/22 20:56 20:24 Chief complaint: Patient states: Pain in my right ear down my neck, into my jaw. me1 vc1
[2023-06-23 06:31] VITALS: TEMP 98.8
[2023-06-23 06:37] VITALS: BP 110/66; O2SAT 99
== END ==
LOC: ER 20:11
DX: H65.01 Acute serous otitis media, right ear (principal); Z72.0 Tobacco use; Z28.310 Unvaccinated for COVID-19
CPT/HCPCS: 70450; 96372; 99284

== ENCOUNTER 2023-11-05 20:30 | Emergency (ER) | payer OTHER ==
--- OUTSIDE RECORDS SUMMARY | 2023-11-05 20:35 | XMS REPORT | Continuity of Care Document ---
Author Name Unknown Address [address] [facility] [address] [place] [address] [facility] Address [address] [facility] [address] [place] [address] Care Team Providers Care Piano Tuner Name Role Phone Wally HEIN, [facility] Primary Care Physician [phone] Sandra Gonsalez Attending Clinician Unavailab norma Wolf MD, Shellie Attending Clinician [phone] Jonnathan Martinez MD Attending Clinician JONNATHAN MARTINEZ Attending Clinician Unavailable Pob, [facility] Main Attending Clinician Unavailyuko e Doctor Unassigned, [place] Attending Clinician U yanira Gabriel MD, Cristobal Boone Attending Clinician + [phone] Jovita Kemp Attending Clinician Unavailable Pedro Galaviz Attending Clinician Unavailab Viraj HEIN, Jovita Mederos Attending Clinician + [phone] SISSY QUINTERO Attending Clinician Unavailable WENDI BRYAN Attending Clinician Unavailable MD [place] Attending Clinician Unavailable PATT JACKSON M.D. Attending Clinician UnavailSandra Gutierrez Admitting Clinician Unavailab JONNATHAN Noland Admitting Clinician Unavailable Physician, No Primary or Family Admitting Clinic myah Unavailable SISSY QUINTERO Admitting Clinician Unavailable WENDI BRYAN Admitting Clinician Unavailable Payers Payer Name Policy Type Policy Number Effective Date Expirati on Date Source Problems Condition Name Condition Details Condition Category Status Onset Date Resolution Date Last Treatment Date Treating Clinician Comments Source Non-recurr ent unilateral inguinal hernia without obstructio n or gangrene Non-recurr ent unilateral inguinal hernia without obstructio n or gangrene Disease Active 3-04 00:00: [address] [facility] Incisional hernia of anterior abdominal wall without obstructio n or gangrene Incisional hernia of anterior abdominal wall without obstructio n or gangrene Disease Active 2020-06 018 00:00: 00 [facility] Abdominal pain Abdominal pain Problem Active 02-11 00:00: [address] [facility] (LUF/LI V/SA) Constipati on Constipati on Problem Active 8 00:00: [address] [facility] (LUF/LI V/SA) Chronic back pain Chronic back pain Problem Active 2015-06 00:00: [address] [facility] (LUF/LI V/SA) Urinary tract infectious disease Urinary tract infectious disease Problem Active 2015-06 00:00: [address] [facility] (LUF/LI V/SA) Opioid dependence in remission Opioid dependence in remission Problem Active 2015-06 00:00: [address] [facility] (LUF/LI V/SA) Closed nondisplac ed odontoid fracture with type [...] ventral hernia Problem Active [facility] MULTIPLE ANKLE SPRAINS TO RT ANKLE MULTIPLE ANKLE SPRAINS TO RT ANKLE Problem Active [facility] (LUF/LI V/SA) Allergies, Adverse Reactions, Alerts Allergy Name Allergy Type Status Severity Reaction(s) Onset Date Inactive Date Treating Clinician Comments Source No Known Allergie s DA Active U 02-11 00:00: 00 [facility] No Known Allergie s DA Active U 09-19 00:00: 00 [facility] No Known Allergie s DA Active Unknown 2013-06 00:00: 00 [facility]LUF[facility] V/SA) NO KNOWN ALLERGIE S Drug Class Active [facility] Social History Social Habit Start Date Stop Date Quantity Comments Source Exposure to SARS-CoV-2 (event) Not sure [facility] History of tobacco use Passive smoker [facility] of Social function 2023-10-20 00:00:00 2023-10-20 00:00:00 [facility] Tobacco use and exposure 2023-08-30 00:00:00 2023-08-30 00:00:00 Smokeless tobacco non-user [facility] Alcohol intake 2023-04-23 00:00:00 2023-04-23 00:00:00 Current drinker of alcohol (finding) [facility] Sex assigned at 1980 00:00:00 1980 00:00:00 [facility] Smoking Status Start Date Stop Date Source Former smoker [facility] Current every day smoker [facility] (LUF/ROBBIE/SA) Tobacco smoking consumption unknown [facility] Occasional tobacco smoker 2023-08-30 00:00:00 [facility] Smoker 2021-04-14 00:00:00 [facility] Ordered Medication Name Filled Medication Name Start Date Stop Date Current Medication? Ordering Clinician Indication Dosage Frequency Signature (SIG) Comments Components Source glycerin, adult, suppository 11-04 00:00: 00 11-17 04:59 :00 Yes [id number] 1{suppo sitory} Insert 1 Suppositor y into rectum in the morning for [address] [facility] magnesium citrate solution 11-04 00:00: 00 11-05 04:59 :00 Yes [id number] 300mL Take 300 mL by mouth once now for [address] [facility] HYDROcodone -acetaminop hen (NORCO 5) 5-325 mg tablet 1 tablet 10-28 19:45: 00 10-28 20:13 :00 No 1{tbl} 1 tablet, Oral, ONCE, 1 dose, On Wed10/29/23 at 1445, Routine, PACU [facility] HYDROmorphO ne (DILAUDID) injection 0.2 mg 10-28 19:31: 22 10-28 22:55 :28 No .2mg 0.2 mg, Slow IV Push, Q5MIN PRN, 10 doses, Starting on Wed10/29/23 at 1431, Until Wed10/29/23 at 1755, Routine, Pain (scale 7-10), PACU, Use approved by (Faculty): PACU USE -ANESTHESI A SERVICE-HY DROMORPHON E INJECTIONS [facility] FENTanyl PF (SUBLIMAZE (PF)) injection 25 mcg 10-28 19:31: 22 10-28 22:55 :28 No 25ug 25 mcg, Slow IV Push, Q5MIN PRN, 4 doses, Starting on Wed10/29/23 at 1431, Until Wed10/29/23 at 1755, Routine, Pain (scale 4-6), PACU [facility] ondansetron (ZOFRAN (PF)) injection 4 mg 10-28 19:31: 22 10-28 22:55 :28 No 4mg 4 mg, Slow IV Push, PRN, 1 dose, Starting on Wed10/29/23 at 1431, Until Wed10/29/23 at 1755, Routine, Nausea and Vomiting (N/V), PACU [facility] sodium chloride 0.9 % irrigation solution 10-28 17:50: 00 10-28 19:33 :24 No PRN, Starting on Wed10/29/23 at 1250, Until Wed10/29/23 at 1433, Intra-op [facility] bupivacaine (preserv free) (SENSORCAIN E MPF) 0.25 % (2.5 mg/mL) 20 mL, BUPivacaine liposome (PF) (EXPAREL (PF)) 1.3 % (13.3 mg/mL) 266 mg 10-28 17:45: 00 10-28 19:33 :24 No PRN, Starting on Wed10/29/23 at 1245, Intra-op [facility] lactated ringers IV infusion 1,000 mL 10-28 15:30: 00 10-28 15:30 :00 No 1000mL at 42 mL/hr, 1,000 mL, IV Infusion, ONCE, 1 dose, On Wed10/29/23 at 1030, Routine, DSU Pre-op [facility] ibuprofen 800 mg tablet 10-28 00:00: 00 11-05 04:59 :00 Yes [id number] 800mg Take 1 tablet by mouth every 6 (six) hours as needed for Pain (scale 1-3) for up to [address] [facility] acetaminoph en (TYLENOL 8 HOUR) 650 mg CR tablet 10-28 00:00: 00 11-05 04:59 :00 Yes [id number] 650mg Take 1 tablet by mouth every 8 (eight) hours as needed for Pain for up to [address] [facility] HYDROcodone -acetaminop hen 10-325 mg tablet 10-28 00:00: 00 11-05 04:59 :00 Yes [id number] 1{tbl} Take 1 tablet by mouth every 6 (six) hours as needed for Pain (scale 4-6) for up to 7 days. Indication s: acute pain [facility] meloxicam 7.5 mg tablet 09-21 15:00: 58 Yes 7.5mg Take 1 tablet by mouth in the morning. [facility] iopamidol (ISOVUE 370-500 mL) injection 85 mL 09-05 21:15: 00 09-05 20:29 :00 No [id number] 85mL 85 mL, Intravenou s, ONCE, 1 dose, On Wed09/06/23 at 1615, Routine [facility] meloxicam 7.5 mg tablet 08-29 15:44: 15 Yes 7.5mg Take 1 tablet by mouth once daily as needed. [facility] DISSOLVE 1 TABLET IN MOUTH EVERY 6 HOURS NEEDED FOR NAUSEA 00:00: 00 Yes Truman Macias TAKE 1 TABLET TWICE DAILY. 08-20 00:00: 00 10-26 00:00 :00 No 75 Truman Macias cyclobenzap rine 10 mg tablet 08-17 00:00: 00 Yes 10mg Take 1 tablet by mouth as needed. [facility] TAKE 1 TABLET 3 TIMES DAILY NEEDED. 08-17 00:00: 00 10-26 00:00 :00 No 10 Truman Macias TAKE 1 TABLET EVERY 6 HOURS NEEDED. 08-17 00:00: 00 10-26 00:00 :00 No 10 Truman Macias TAKE 2 TABLETS BY MOUTH TODAY, THEN TAKE 1 TABLET DAILY FOR 4 DAYS DIRECTED 2022-06 00:00: 00 Yes Truman Olga Gilberto TRAMADOL HYDROCHLORI DE 50 MG TABS 2022-06 00:00: 00 Yes Truman Olga Gilberto No known medications 2020-06 14:56: 41 No No known medication s [facility] PEG 3350/Electr olytes 240 GM Oral Solution Reconstitut ed PEG 3350/Electr olytes 240 GM Oral Solution Reconstitut ed - 00:00: 00 Yes JOVITA WHYTE M.D. MIX DIRECTED AND DRINK OVER 4 HOURS, START AT 4PM. [facility] Neomycin Sulfate 500 MG Oral [...] 1PM, 2PM AND 11PM. [facility] Vital Signs Vital Name Observation Time Observation Value Comments Fabrizio spaulding Systolic blood pressure 2023-10-29 20:25:00 106 mm[Hg] [facility] Diastolic blood pressure 2023-10-29 20:25:00 52 mm[Hg] [facility] Heart rate 2023-10-29 20:25:00 69 /min [facility] Respiratory rate 2023-10-29 20:25:00 15 /min [facility] Oxygen saturation in Arterial blood by Pulse oximetry 2023-10-29 20:25:00 98 /min [facility] Body temperature 2023-10-29 19:33:00 37.11 Shante [facility] Body weight 2023-10-20 18:00:00 68.04 kg [facility] BMI 2023-10-20 18:00:00 21.52 kg/m2 [facility] Systolic blood pressure 2023-10-29 15:25:00 121 mm[Hg] [facility] Diastolic blood pressure 2023-10-29 15:25:00 48 mm[Hg] [facility] Heart rate 2023-10-29 15:25:00 51 /min [facility] Body temperature 2023-10-29 15:25:00 36.72 Shante [facility] Respiratory rate 2023-10-29 15:25:00 14 /min [facility] Oxygen saturation in Arterial blood by Pulse oximetry 2023-10-29 15:25:00 100 /min [facility] Body weight 2023-10-20 18:00:00 68.04 kg [facility] BMI 2023-10-20 18:00:00 21.52 kg/m2 [facility] Systolic blood pressure 2023-09-22 20:01:00 112 mm[Hg] [facility] Diastolic blood pressure 2023-09-22 20:01:00 80 mm[Hg] [facility] Heart rate 2023-09-22 20:01:00 77 /min [facility] Body temperature 2023-09-22 20:01:00 36.83 Shante [facility] Respiratory rate 2023-09-22 20:01:00 18 /min [facility] Body height 2023-09-22 20:01:00 177.8 cm [facility] Body weight 2023-09-22 20:01:00 66.271 kg [facility] BMI 2023-09-22 20:01:00 20.96 kg/m2 [facility] Oxygen saturation in Arterial blood by Pulse oximetry 2023-09-22 20:01:00 99 /min [facility] Systolic blood pressure 2023-08-30 21:46:00 111 mm[Hg] [facility] Diastolic blood pressure 2023-08-30 21:46:00 76 mm[Hg] [facility] Heart rate 2023-08-30 21:46:00 84 /min [facility] Respiratory rate 2023-08-30 21:46:00 16 /min [facility] Body height 2023-08-30 21:46:00 175.3 cm [facility] Body weight 2023-08-30 21:46:00 64.864 kg [facility] BMI 2023-08-30 21:46:00 21.12 kg/m2 [facility] Oxygen saturation in Arterial blood by Pulse oximetry 2023-08-30 21:46:00 100 /min [facility] Systolic blood pressure 2023-04-23 15:22:00 114 mm[Hg] [facility] Diastolic blood pressure 2023-04-23 15:22:00 71 [...] 2021-04-14 19:10:00 18.37 [facility]m2 [facility] Height 2020-02-12 11:12:00 177.8 CM Weight 2020-02-12 11:12:00 65.8 KG Weight Measured 2023-10-26 17:45:00 147.80 pounds Trumanheriberto Macias Height Measured 2023-10-26 17:45:00 72.00 inches Truman F Gilberto Body Temperature 2023-10-26 17:45:00 98.10 degrees Truman F Gilberto Heart Rate 2023-10-26 17:45:00 65.00 /min Monique en F Gilberto Respiratory Rate 2023-10-26 17:45:00 16.00 /min Truman F Gilberto BP Systolic 2023-10-26 17:45:00 114 mm[Hg] Step hen F Gilberto BP Diastolic 2023-10-26 17:45:00 75 mm[Hg] [place] phen F Gilberto BP Systolic 2023-08-17 13:55:00 116 mm[Hg] Step hen F Gilberto BP Diastolic 2023-08-17 13:55:00 79 mm[Hg] [place] phen F Gilberto Weight Measured 2023-08-17 13:55:00 143.40 pounds Truman F Gilberto Height Measured 2023-08-17 13:55:00 72.00 inches Truman F Gilberto Body Temperature 2023-08-17 13:55:00 98.20 degrees Truman F Gilberto Heart Rate 2023-08-17 13:55:00 80.00 /min Monique en Olga Macias Respiratory Rate 2023-08-17 13:55:00 18.00 /min Truman Macias BP Systolic 2023-07-15 10:32:00 112 mm[Hg] Step heriberto Macias BP Diastolic 2023-07-15 10:32:00 71 mm[Hg] [place] Macias Weight Measured 2023-07-15 10:32:00 142.00 pounds Truman Macias Height Measured 2023-07-15 10:32:00 72.00 inches Truman Macias Body Temperature 2023-07-15 10:32:00 98.20 degrees Truman Macias Heart Rate 2023-07-15 10:32:00 85.00 /min Monique en Olga Macias Respiratory Rate 2023-07-15 10:32:00 19.00 /min Truman Macias Body Temperature 2020-02-12 15:00:00 98 [degF] [facility] (LUF/ROBBIE/SA) Pulse Rate 2020-02-12 15:00:00 69 /min [facility] (LUF/ROBBIE/SA) Respiratory Rate 2020-02-12 15:00:00 18 /min [facility] (LUF/ROBBIE/SA) O2% BldC Oximetry 2020-02-12 15:00:00 99 % [facility] (LUF/ROBBIE/SA) BP Systolic 2020-02-12 15:00:00 100 mm[Hg] [facility] (LUF/ROBBIE/SA) BP Diastolic 2020-02-12 15:00:00 64 mm[Hg] [facility] (LUF/ROBBIE/SA) Height 2020-02-12 11:12:00 70 [in_i] [facility] (LUF/ROBBIE/SA) Weight 2020-02-12 11:12:00 65.8 kg [facility] (LUF/ROBBIE/SA) BMI (Body Mass Index) 2020-02-12 11:12:00 21 kg/m2 [facility] (LUF/ROBBIE/SA) BP Systolic 2018-01-14 12:35:00 109 mm[Hg] [facility] BP Diastolic 2018-01-14 12:35:00 78 mm[Hg] [facility] Height 2018-01-14 12:35:00 70 [in_us] [facility] Weight 2018-01-14 12:35:00 119.375 [lb_av] [facility] Body Mass Index Calculated 2018-01-14 12:35:00 17.13 kg/m2 [facility] Temperature 2018-01-14 12:35:00 97.8 [degF] [facility] Heart Rate 2018-01-14 12:35:00 80 /min [facility] Body Mass Index Calculated 2018-01-03 13:20:00 17.43 kg/m2 [facility] Temperature 2018-01-03 13:20:00 96 [degF] [facility] Heart Rate 2018-01-03 13:20:00 98 /min [facility] BP Systolic 2018-01-03 13:20:00 130 mm[Hg] [facility] BP Diastolic 2018-01-03 13:20:00 87 mm[Hg] [facility] Height 2018-01-03 13:20:00 70 [in_us] [facility] Weight 2018-01-03 13:20:00 121.5 [lb_av] [facility] BP Systolic 2017-11-15 13:34:00 130 mm[Hg] [facility] BP Diastolic 2017-11-15 13:34:00 88 mm[Hg] [facility] Height 2017-11-15 13:34:00 70 [in_us] [facility] Weight 2017-11-15 13:34:00 124.5 [lb_av] [facility] Body Mass Index Calculated 2017-11-15 13:34:00 17.86 kg/m2 [facility] Temperature 2017-11-15 13:34:00 96.8 [degF] [facility] Heart Rate 2017-11-15 13:34:00 94 /min [facility] BP Systolic 2017-10-22 09:58:00 114 mm[Hg] [facility] BP Diastolic 2017-10-22 09:58:00 72 mm[Hg] [facility] Height 2017-10-22 09:58:00 70 [in_us] [facility] Weight 2017-10-22 09:58:00 129 [lb_av] [facility] Body Mass Index Calculated 2017-10-22 09:58:00 18.51 kg/m2 [facility] Temperature 2017-10-22 09:58:00 96.6 [degF] [facility] Heart Rate 2017-10-22 09:58:00 58 /min [facility] Height 2017-05-18 08:15:00 70 [...] 2017-04-09 11:42:00 88 /min [facility] Procedures Procedure Date / Time Performed Performing Clinicia n Source [id number] - [place] RPR 1ST INGUN HRNA AGE 3 YRS/> REDUCIBLE 2023-10-29 16:52:00 [facility] CT ABDOMEN PELVIS W CONTRAST 2023-09-06 20:29:06 [facility] ASSIGNMENT OF BENEFITS 2023-08-30 21:34:00 Docto r Unassigned, [place] [facility] [id number] 2022-02-11 00:00:00 [id number] [facility] [id number] 2022-02-11 00:00:00 [id number] [facility] Plan of Care Planned Activity Planned Date Details Comments Source Encounters Start Date/Time End Date/Time Encounter Type Admission Type Attending Clinicians Care Facility Care Department Encounter ID Source 2023-07-27 11:46:48 Outpatient [facility] [id number] [facility] 2023-06-23 08:53:48 Outpatient [facility] [id number] [facility] 2023-06-16 11:21:49 Outpatient [facility] [id number] [facility] 2023-04-23 10:20:20 Outpatient [facility] [id number] [facility] 2023-02-04 14:59:53 Inpatient Sandra Gonsalez [facility] [id number] [facility] 2023-11-05 00:00:00 2023-11-05 19:49:56 Case Management Shellie Wolf [facility] [id number] [id number] [facility] 2023-11-05 00:00:00 2023-11-05 19:24:36 Telephone [facility] [id number] 350.1.13.10 [id number] [facility] 2023-10-29 10:17:00 2023-10-29 15:35:00 [facility] [id number] [facility] 2023-10-29 10:17:00 2023-10-29 15:35:00 Hospital Encounter [facility] [place] [id number] 350.1.13.10 4.2.7.2.[id number] [facility] 2023-10-29 11:20:00 2023-10-29 14:07:00 Surgery [facility] [id number] 350.1.13.10 4.2.7.2.[id number] [facility] 2023-10-26 17:38:43 2023-10-26 17:38:43 Outpatient BARBARA JIMENEZ [id number] Truman Macias 2023-10-26 00:00:00 2023-10-26 00:00:00 Outpatient Visit [facility] [id number] Truman Macias 2023-09-23 00:00:00 2023-09-23 00:00:00 Telephone [facility] 1.114 350.1.13.10 4.2.7.2.[id number] [facility] 2023-09-22 15:30:00 2023-09-22 15:31:33 Outpatient R JUAN [facility] [id number] [facility] 2023-09-22 15:30:00 2023-09-22 15:31:33 Office Visit [facility] PRIMARY [facility] SPECIALTY [facility]ARE 1.114 350.1.13.10 4.2.7.2.[id number] [facility] 2023-09-22 00:00:00 2023-09-22 00:00:00 Telephone [facility] 1.114 350.1.13.10 4.2.7.2.[id number] [facility] 2023-09-06 14:33:31 2023-09-06 23:59:00 Outpatient R JONNATHAN MARTINEZ [facility] [id number] [facility] 2023-09-06 14:33:31 2023-09-06 23:59:00 Hospital Encounter [facility] 1..114 350.1.13.10 4.2.7.2.[id number] [facility] 2023-08-30 16:45:00 2023-08-30 17:00:00 Sock And Stocking Ironer Visit Pob, Adc Lab Main [facility]ESSIO [facility] 1.2840.114 350.1.13.10 4.2.7.2.[id number] [facility] 2023-08-30 15:15:00 2023-08-30 16:34:55 Office Visit Juan Jonnathan [facility] NIKOLE PRICE [facility] 1.2.840.114 350.1.13.10 4.2.7.2.[id number] [facility] 2023-08-30 15:15:00 2023-08-30 16:34:55 Outpatient R JONNATHAN MARTINEZ [facility] [id number] [facility] 2023-08-30 00:00:00 2023-08-30 00:00:00 Orders Only Doctor Unassigned, [place] [facility] 1.840.114 350.1.13.10 4.2.7.2.[id number] [facility] 2023-08-17 13:50:54 2023-08-17 13:50:54 Outpatient SFA SFA [id number] Truman Espinoza [place] 2023-07-19 11:00:15 2023-07-19 11:00:15 Outpatient SFA SFA [id number] Truman Espinoza Gilberto 2023-07-15 10:26:24 2023-07-15 10:26:24 Outpatient SFA SFA [id number] Truman Espinoza Gilber[place] 2023-06-04 08:45:50 2023-06-04 08:45:50 Outpatient SFA SFA [id number] Truman Espinoza Gilberto 2023-04-23 10:30:00 2023-04-23 10:46:41 Office Visit Cristobal Gabriel [address] 1.2.840.114 350.1.13.58 [id number] [id number] [facility] 2023-04-23 09:30:00 2023-04-23 09:30:00 Outpatient [facility] [id number] [facility] 2023-04-02 18:04:00 2023-04-02 18:41:00 Emergency EM Jovita Kemp [facility] [id number] [facility] 2022-02-27 17:30:00 2022-02-27 18:47:00 Emergency EM Pedro Galaviz [facility] [id number] [facility] 2022-02-11 20:18:00 2022-02-12 13:30:00 Inpatient TR Sandra Gonsalez [facility] [id number] [facility] 2021-04-14 13:58:25 2021-04-14 14:44:25 Office Visit Jovita Whyte [facility] [address] [facility] 1.2.840.114 350.1.13.58 [id number] [id number] [facility] 2020-02-12 10:56:00 2020-02-12 15:06:00 CONSTIPATI ON UNSPECIFIE D E LEON, [facility], [address], [place] [address] [facility] [id number] [facility] (LU/BARBARA V/SA) 2018-01-14 11:00:00 2018-01-14 11:00:00 Appointmen t; MD DINH REDDY MD [facility] General Surgery [id number] [facility] 2018-01-03 13:15:00 2018-01-03 13:15:00 Appointmen t; MD DINH REDDY MD [facility] General Surgery [id number] [facility] 2017-11-15 13:00:00 2017-11-15 13:00:00 Appointmen t; MD DINH REDDY MD [facility] General Surgery [id number] [facility] 2017-10-22 10:30:00 2017-10-22 10:30:00 Appointmen t; MD DINH REDDY MD [facility] General Surgery [id number] [facility] 2017-06-11 10:00:00 2017-06-11 10:00:00 Appointmen t; MD DINH REDDY MD [facility] [id number] [facility] 2017-05-17 10:15:00 2017-05-17 10:15:00 Appointmen t; PATT JACKSON M.D. PRASARN, MARK, M.D. [facility] Orthopedics at [facility] [id number] [facility] 2017-05-12 07:45:00 2017-05-12 07:45:00 Appointmen t; PATT JACKSON M.D. PRASARN, MARK, M.D. [facility] [id number] [facility] 2017-04-14 13:15:00 2017-04-14 13:15:00 Appointmen t; PATT JACKSON M.D. PRASARN, MARK, M.D. [facility] [id number] [facility] 2017-04-09 10:15:00 2017-04-09 10:15:00 Appointmen t; MD DINH REDDY MD [facility] [id number] [facility] Results Test Description Test Time Test Comments Results Resul t Comments Source CT ABDOMEN PELVIS W CONTRAST 2023-08-27 23:34:32 EXAM: CT ABDOMEN PELVIS W CONTRAST HISTORY: 43 years-old Male; Provided indication: Abdominal wall hernia.History of colostomy and hernia repair in 2019. TECHNIQUE: Contiguous axial imaging from the level of the lung basesthrough the proximal thighs was performed with intravenous contrast.Coronal and sagittal reconstructions were obtained. COMPARISON: None FINDINGS: LOWER THORAX: The lung bases are clear. LIVER: The liver is normal in size and contour. No focal hepatic lesion isseen. GALLBLADDER AND BILIARY TREE: The gallbladder appears unremarkable. Noradiopaque gallstones are seen. No intra or extrahepatic biliary ductaldilation is visualized. SPLEEN: The spleen appears unremarkable. PANCREAS: No ductal dilation or masses are visualized. ADRENAL GLANDS: No adrenal masses are seen. KIDNEYS: No hydronephrosis, stones, or suspicious solid masses arevisualized. Left renal tiny subcentimeter cyst too small to becharacterized (Bosniak II). PELVIS/BLADDER: The bladder appears unremarkable. Unremarkable prostate andseminal vesicles. GI TRACT: No dilation or bowel wall thickening is seen. The appendix couldnot be identified. PERITONEUM AND RETROPERITONEUM: No intra-abdominal free air or fluidcollection is visualized. LYMPH NODES: No lymphadenopathy. 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 BONES AND SOFT TISSUES: No suspicious lytic or sclerotic bony lesions arepresent. [Left posterolateral abdominal wall hernia containing thedescending colon with related evidence of prior colostomy and herniarepair. Tiny fat-containing right inguinal hernia. [facility] COMPREHENSIVE METABOLIC [id number] 06:21:17* Test Item Value Reference Range Interpretation Comme nts GLUCOSE (test code = 2217) 90 MG/DL 70-99 BUN (test code = 220) 16 MG/DL 6-20 CREATININE (test code = 2214) 1.12 MG/DL 0.80-1.40 eGFR (2020 CKD-EPI) (test co de = 00776) 83 ML/MIN/1.73 >60 CALC BUN/CREAT (test code = 2235) 14 RATIO 6-28 SODIUM (test code = 2231) 140 MEQ/L 133-146 POTASSIUM (test code = 2228) 4.6 MEQ/L 3.5-5.4 CHLORIDE (test code = 2215) 101 MEQ/L 95-107 CARBON DIOXIDE (test code = 2206) 24 MEQ/L 19-31 CALCIUM (test code = 2209) 10.5 MG/DL 8.5-10.5 PROTEIN, TOTAL (test code = 2229) 7.5 G/DL 6.1-8.3 ALBUMIN (test code = 2201) 5.1 G/DL 3.5-5.2 CALC GLOBULIN (test code = 2240) 2.4 G/DL 1.9-3.7 CALC A/G RATIO (test code = 2234) 2.1 RATIO 1.0-2.6 BILIRUBIN, TOTAL (test code = 2207) 0.4 MG/DL <=1.2 ALKALINE PHOSPHATASE (test code = 2204) 73 U/L 40-119 AST (test code = 2218) 29 U/L 9-50 ALT (test code = 2219) 38 U/L 5-50 LIPID [id number] 06:21:17* Test Item Value Reference Range Interpretation Comme nts CHOLESTEROL (test code = 2210) 194 MG/DL <200 TRIGLYCERIDES (test code = 2232) 203 MG/DL <150 H HDL CHOLESTEROL (test code = 2220) 35 MG/DL >39 L CALC LDL CHOL (test code = 2237) 127 MG/DL <100 H NOTE: CALCULATED LDL IS BASED ON ARMOND-BOONE METHOD WHICHINCLUDES ADJUSTABLE TRIGLYCERIDE:VLDL CHOLESTEROL RATIO.THIS FACTOR VARIES BY MEASURED TRIGLYCERIDE AND NON-HDLCHOLESTEROL CONCENTRATIONS WITH INCREASED CALCULATED LDL SEENIN HIGHER TRIGLYCERIDE OR LOWER NON-HDL SPECIMENS. FOR MOREINFORMATION, SEE CLIENT ANNOUNCEMENT AT [email or web address] RISK RATIO LDL/HDL (test code = 2238) 3.63 RATIO <3.55 H HEMOGLOBIN [id number] 04:58:01* Test Item Value Reference Range Interpretation Comme nts HEMOGLOBIN A1c (test code = 83784) 5.4 % 4.2-5.6 CBC W/AUTO DIFF WITH [id number] 04:20:48* Test Item Value Reference Range Interpretation Comme nts WBC (test code = 1001) 7.3 K/UL 3.5-11.0 RBC (test code = 1002) 5.24 M/UL 4.50-6.10 HEMOGLOBIN (test code = 1003) 15.3 G/DL 13.5-17.0 HEMATOCRIT (test code = 1004) 45.4 % 40.0-51.0 MCV (test code = 1005) 86.6 fL 80.0-99.0 MCH (test code = 1006) 29.2 PG 25.0-33.0 MCHC (test code = 1007) 33.7 G/DL 31.0-36.0 RDW (test code = 1038) 12.5 % 11.5-15.0 NEUTROPHILS (test code = 1008) 55.9 % LYMPHOCYTES (test code = 1010) 31.1 % MONOCYTES (test code = 1011) 9.5 % EOSINOPHILS (test code = 1012) 2.6 % BASOPHILS (test code = 1013) 0.8 % IMMATURE GRANULOCYTES (test code = 1036) 0.1 % NUCLEATED RBCS (test code = 1065) 0.0 /100 WBC'S See_Comment [Automated message] The system which generated this result transmitted reference range: 0.0. The reference range was not used to interpret this result as normal/abnormal. PLATELET COUNT (test code = 1015) 402 K/UL 130-400 H ABSOLUTE NEUTROPHILS (test code = 1066) 4.05 K/UL 1.50-7.50 ABSOLUTE LYMPHOCYTES (test code = 1067) 2.26 K/UL 1.00-4.00 ABSOLUTE MONOCYTES (test code = 1068) 0.69 K/UL 0.20-1.00 ABSOLUTE EOSINOPHILS (test code = 1040) 0.19 K/UL 0.00-0.50 ABSOLUTE BASOPHILS (test code = 1069) 0.06 K/UL 0.00-0.20 ABS IMMATURE GRANULOCYTES (test code = 1020) 0.01 K/UL 0.00-0.10 ABS NUCLEATED RBCS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
[2023-11-05] MEDS ORDERED: NA CHLORIDE 0.9% 1,000 ML ONE (20:53)
[2023-11-05] MEDS ORDERED: LACTULOSE 20 GM/30 ML UCUP ONE (20:53)
[2023-11-05 21:13] LABS: Absolute Basophils 0.1 K/uL (0-0.5); Absolute Eosinophils 0.3 K/uL (0-0.5); Absolute Lymphocytes (CBC) 2.1 K/uL (0.7-4.9); Absolute Monocytes 0.9 K/uL (0.1-1.3); Absolute Neutrophil 6.3 K/uL (1.8-8.0); Basophils % 0.6 % (0-1.3); Eosinophils % 3.6 % (0-4.4); Hematocrit 45.2 % (39.6-49.0); Hemoglobin 15.3 g/dL (13.6-17.9); Lymphocytes % 21.7 % (15.3-44.8); MCH 29.5 pg (27.0-35.0); MCHC 33.7 g/dL (32.0-36.0); MCV 87.4 fL (80-100); MPV 6.6 fL (7.6-11.3); Monocytes % 9.1 % (3.3-12.3); Platelets 394 thou/uL (152-406); RBC Red Blood Cell Count 5.18 M/uL (4.33-5.43); Red Cell Distribution Width 13.9 % (12.1-15.2)
[2023-11-05 21:29] LABS: Albumin 3.9 g/dL (3.4-5.0); Anion Gap 7.4 mEq/L (5.0-15.0); Bilirubin Total 0.4 mg/dL (0.2-1.0); Globulin 3.9 g/dL (2.3-3.5); Potassium 4.4 mEq/L (3.5-5.1); Protein, Total 7.8 g/dL (6.4-8.2)
--- NOTE | 2023-11-05 22:15 | RAD REPORT ---
EXAM DESCRIPTION: CT - Abdomen Pelvis W Contrast - 11/05/2023 9:54 pm CLINICAL HISTORY: Abdominal pain COMPARISON: none. TECHNIQUE: Computed axial tomography of the abdomen pelvis was obtained. 100 cc Isovue-300 was admin istered intravenously. Oral contrast was not requested which limits evaluation of bowel and appendix All CT scans are performed using dose optimization technique as appropriate and may include automated exposure control or mA/KV adjustment according to patient size. FINDINGS: The liver, spleen, pancreas, adrenal and kidneys appear unremarkable. A large amount of stool is present throughout the colon. The rectum is mildly distended with stool. D escending colon measures 7 centimeters. Fluid is present within nondilated small bowel. Postsurgical changes involve the bowel Post surgical changes of a right inguinal hernia repair. An air bubble is present within right inguin al canal. Small amount of ill-defined fluid is present. No abscess seen. IMPRESSION: Large amount of stool is present throughout the colon. The patient may have a fecal impa ction. Postsurgical changes right inguinal region. Ill-defined fluid probably is the sequela of surgery. An abscess is not visualized.
[2023-11-05] MEDS ORDERED: MAGNESIUM CITRATE 300 ML BOT ONE (22:34)
[2023-11-05] MEDS ORDERED: FLEET ENEMA ADULT PR ONE (22:34)
[2023-11-06] MEDS ORDERED: FLEET ENEMA ADULT PR ONE (01:01)
--- NOTE | 2023-11-06 01:29 | ER ---
Nurse's Notes [facility] Name: Dominick Mcbride Age: 43 yrs Sex: Male : 1980 Arrival Date: 11/05/2023 Time: 20:30 Bed 6 Private MD: Diagnosis: Constipation Presentation: 11/04 20:36 Chief complaint: EMS states: undergone hernia surgery on October 28, last bowel movement rv was October 27, complaining of abd pain and indigestion. Coronavirus screen: At this time, the client does not indicate any symptoms associated with coronavirus-19. Ebola Screen: No symptoms or risks identified at this time. Initial Sepsis Screen: Does the patient meet any 2 criteria? No. Patient's initial sepsis screen is negative. Does the patient have a suspected source of infection? No. Patient's initial sepsis screen is negative. Risk Assessment: Do you want to hurt yourself or someone else? Patient reports no desire to harm self or others. Onset of symptoms was November 05, 2023. 20:36 Method Of Arrival: EMS: [facility] rv 20:36 Acuity: RIGOBERTO 3 rv Triage Assessment: 20:37 General: Appears uncomfortable, Behavior is calm, cooperative. Pain: Complains of pain rv in abdomen. Neuro: Level of Consciousness is awake, alert, obeys commands, Oriented to person, place, time, situation. Cardiovascular: Capillary refill < 3 seconds Patient's skin is warm and dry. Respiratory: Airway is patent Respiratory effort is even, unlabored. GI: Reports lower abdominal pain, upper abdominal pain, constipation. Derm: Skin is intact. Historical: - Allergies: 20:37 No Known Allergies; rv - Immunization history:: Adult Immunizations up to date. - Infectious Disease History:: Denies. - Social history:: Smoking status: Patient denies any tobacco usage or history of. - Family history:: not pertinent. Screenin:38 [facility] ED Fall Risk Assessment (Adult) History of falling in the last 3 months, rv including since admission No falls in past 3 months (0 pts) Score/Fall Risk Level 0 - 2 = Low Risk Oriented to surroundings, Maintained a safe environment, Educated pt \T\ family on fall prevention, incl call for assistance when getting out of bed, Assessed \T\ reinforced patient's understanding of fall precautions. Abuse screen: Denies threats or abuse. Denies injuries from another. Nutritional screening: No deficits noted. Tuberculosis screening: No symptoms or risk factors identified. Assessment: 20:58 General: Appears in no apparent distress. uncomfortable, Behavior is calm, cooperative. lg3 Pain: Complains of pain in abdomen Pain does not radiate. Neuro: No deficits noted. [place] Agitation-Sedation Scale (RASS): 0 - Alert and Calm Level of Consciousness is awake, alert, obeys commands, Oriented to person, place, time, situation. Cardiovascular: No deficits noted. Denies chest pain, shortness of breath, Capillary refill < 3 seconds Clubbing of nail beds is absent JVD is absent Patient's skin is warm and dry. Respiratory: No deficits noted. Airway is patent Respiratory effort is even, unlabored, Respiratory pattern is regular, symmetrical. GI: Abdomen is round non-distended, Bowel sounds present X 4 quads. Reports lower abdominal pain, upper abdominal pain, constipation, cramping, indigestion. : No deficits noted. No signs and/or symptoms were reported regarding the genitourinary system. EENT: No deficits noted. No signs and/or symptoms were reported regarding the EENT system. Derm: No deficits noted. No signs and/or symptoms reported regarding the dermatologic system. Skin is intact, is healthy with good turgor, Skin is dry, Skin is normal, Skin temperature is warm. Musculoskeletal: No deficits noted. No signs and/or symptoms reported regarding the musculoskeletal system. Circulation, motion, and sensation intact. Range of motion: intact in all extremities. 21:47 Reassessment: Patient appears in no apparent distress at this time. No changes from lg3 previously documented assessment. Patient and/or family updated on plan of care and expected duration. Pain level reassessed. Patient is alert, oriented x 3, equal unlabored respirations, skin warm/dry/pink. 22:20 General: Claudette [phone] [place] Ferro [phone]. rv Vital Signs: 20:36 BP 145 / 88; Pulse 91; Resp 18; Temp 98; Pulse Ox 100% on R/A; rv 21:47 BP 138 / 85; Pulse 88; Resp 17 S; Pulse Ox 100% on R/A; lg3 11/05 01:27 BP 136 / 76; Pulse 81; Resp 17; Temp 98; Pulse Ox 99% on R/A; rv [place] Coma Score: 01:27 Eye Response: spontaneous(4). Motor Response: obeys commands(6). Verbal Response: rv oriented(5). Total: 15. ED Course: 11/04 20:31 Patient arrived in ED. rv1 20:32 Claude Quinn MD is Attending Physician. rt 20:36 Wilfred Tejada, MARRY is Primary Nurse. rv 20:37 Triage completed. rv 20:37 Arm band placed on right wrist. rv 20:38 Patient has correct armband on for positive identification. Client placed on continuous rv cardiac and pulse oximetry monitoring. NIBP monitoring applied. 20:52 , Sharon [phone]. rv1 20:52 [id number], . rv1 20:58 Door closed. Noise minimized. Warm blanket given. lg3 20:58 Initial lab(s) drawn, by labor arbitrator hearing office, sent to lab. Inserted saline lock: 22 gauge in left lg3 antecubital area, using aseptic technique. Blood collected. 21:57 CT Abd/Pelvis - IV Contrast Only In Process Unspecified. EDMS 05 01:28 No provider procedures requiring assistance completed. IV discontinued, intact, rv bleeding controlled, No redness/swelling at site. Pressure dressing applied. Administered Medications: 11/04 21:00 Drug: NS 0.9% IV 1000 ml IV at 1 bolus Per protocol; 1000 mL bolus Route: IV; Rate: 1 lg3 bolus; Site: left antecubital; 11/05 00:27 Follow up: IV Status: Completed infusion; IV Intake: 1000ml rv 11/04 21:00 Drug: Lactulose PO 30 grams 45 ml PO once Volume: 45 ml; Route: PO; lg3 11/05 01:27 Follow up: Response: No adverse reaction; Marked relief of symptoms rv 11/04 22:37 Drug: Magnesium Citrate PO Liquid 300 ml PO once Route: PO; rv 11/05 00:27 Follow up: Response: No adverse reaction; Marked relief of symptoms rv 11/04 22:37 Drug: Fleet Enema MI 133 ml MI once; may repeat once Route: MI; rv 11/05 01:27 Follow up: Response: No adverse reaction; Marked relief of symptoms rv Medication: 11/04 20:38 VIS not applicable for this client. rv Intake: 11/05 01:27 IV: 1000ml; Total: 1000ml. rv Outcome: : Discharge ordered by . rt : Discharged to home ambulatory, rv : Condition: good 01:28 Discharge instructions given to patient, Instructed on discharge instructions, follow up and referral plans. Demonstrated understanding of instructions, follow-up care, :31 Patient left the ED. rv Signatures: Dispatcher [employer] EDWilfred Darden RN RN rv Angelic Sterling RN RN lg3 Claude Quinn MD MD rt Loulou Jung rv1
--- NOTE | 2023-11-06 01:29 | EDPHYS ---
Physician Documentation [facility] Name: Dominick Mcbride Age: 43 yrs Sex: Male : 1980 Arrival Date: 11/05/2023 Time: 20:30 Bed 6 Private MD: ED Physician Claude Quinn HPI: 11/04 20:37 This 43 yrs old Male presents to ER via EMS with complaints of constipation. rt 20:37 Patient had a right inguinal hernia repair on October 28. States that he last had a bowel rt movement the day before that. States he is straining, developed stoma bleeding. His doctor, Dr. Jeronimo at [place], reportedly called in a prescription. He has been able to fill that due to pharmacies being closed. Reports abdominal bloating, pain. Denies other acute complaints, symptoms are moderate in severity, no other aggravating or alleviating factors.. Historical: - Allergies: 20:37 No Known Allergies; rv - Immunization history:: Adult Immunizations up to date. - Infectious Disease History:: Denies. - Social history:: Smoking status: Patient denies any tobacco usage or history of. - Family history:: not pertinent. ROS: 20:37 Constitutional: Negative for fever, chills, and weight loss, Cardiovascular: Negative rt for chest pain, palpitations, and edema, Respiratory: Negative for shortness of breath, cough, wheezing, and pleuritic chest pain, MS/Extremity: Negative for injury and deformity, Skin: Negative for injury, rash, and discoloration, Neuro: Negative for headache, weakness, numbness, tingling, and seizure, 20:37 Abdomen/GI: Positive for abdominal pain, constipation, Exam: 20:37 Constitutional: This is a well developed, well nourished patient who is awake, alert, rt and in no acute distress. Chest/axilla: Normal chest wall appearance and motion. Nontender with no deformity. No lesions are appreciated. Cardiovascular: Regular rate and rhythm with a normal S1 and S2. No gallops, murmurs, or rubs. Normal PMI, no JVD. No pulse deficits. Respiratory: Lungs have equal breath sounds bilaterally, clear to auscultation and percussion. No rales, rhonchi or wheezes noted. No increased work of breathing, no retractions or nasal flaring. Skin: Warm, dry with normal turgor. Normal color with no rashes, no lesions, and no evidence of cellulitis. MS/ Extremity: Pulses equal, no cyanosis. Neurovascular intact. Full, normal range of motion. Neuro: Awake and alert, GCS 15, oriented to person, place, time, and situation. Cranial nerves II-XII grossly intact. Motor strength 5/5 in all extremities. Sensory grossly intact. Cerebellar exam normal. Normal gait. 20:37 Abdomen/GI: Multiple abdominal scars noted, tenderness diffusely without rebound, guarding, distention, Vital Signs: 20:36 BP 145 / 88; Pulse 91; Resp 18; Temp 98; Pulse Ox 100% on R/A; rv 21:47 BP 138 / 85; Pulse 88; Resp 17 S; Pulse Ox 100% on R/A; lg3 11/05 01:27 BP 136 / 76; Pulse 81; Resp 17; Temp 98; Pulse Ox 99% on R/A; rv [place] Coma Score: 01:27 Eye Response: spontaneous(4). Motor Response: obeys commands(6). Verbal Response: rv oriented(5). Total: 15. MDM: 11/04 20:32 Patient medically screened. rt 11/05 02:29 Differential Diagnosis Bowel obstruction, constipation. Data reviewed: vital signs, rt nurses notes, lab test result(s), radiologic studies. I considered the following discharge prescriptions or medication management in the emergency department Medications were administered in the Emergency Department. See MAR. Independent interpretation of the following test(s) in the Emergency Department CT Scan: My interpretation is No bowel obstruction seen on interpretation of CT scan images. Care significantly affected by the following chronic conditions: Multiple abdominal surgery. Counseling: I had a detailed discussion with the patient and/or guardian regarding the historical points, exam findings, and any diagnostic results supporting the discharge/admit diagnosis, lab results, radiology results, the need for outpatient follow up, to return to the emergency department if symptoms worsen or persist or if there are any questions or concerns that arise at home. Response to treatment: the patient's symptoms have resolved after treatment, Patient had a large bowel movement in the ED with significant improvement of the abdominal pain.. 11/04 20:37 Order name: CBC with Diff; Complete Time: 21:32 rt 11/04 20:37 Order name: CMP; Complete Time: 21:32 rt 11/04 20:37 Order name: Lipase; Complete Time: 21:32 rt 11/04 20:37 Order name: CT Abd/Pelvis - IV Contrast Only; Complete Time: 22:17 rt 11/04 20:37 Order name: IV Saline Lock; Complete Time: 21:00 rt 11/04 20:37 Order name: Labs collected and sent; Complete Time: 21:00 rt Administered Medications: 11/04 21:00 Drug: NS 0.9% IV 1000 ml IV at 1 bolus Per protocol; 1000 mL bolus Route: IV; Rate: 1 lg3 bolus; Site: left antecubital; 11/05 01:27 Follow up: IV Status: Completed infusion; IV Intake: 1000ml rv 11/04 21:00 Drug: Lactulose PO 30 grams 45 ml PO once Volume: 45 ml; Route: PO; lg3 11/05 01:27 Follow up: Response: No adverse reaction; Marked relief of symptoms rv 11/04 22:37 Drug: Magnesium Citrate PO Liquid 300 ml PO once Route: PO; rv 11/05 01:27 Follow up: Response: No adverse reaction; Marked relief of symptoms rv 11/04 22:37 Drug: Fleet Enema HI 133 ml HI once; may repeat once Route: HI; rv 11/05 01:27 Follow up: Response: No adverse reaction; Marked relief of symptoms rv Disposition Summary: 11/06/23 01:28 Discharge Ordered Notes: Location: Home rt Problem: new rt Symptoms: have improved rt Condition: Stable rt Diagnosis - Constipation rt Followup: rt - With: Private Physician - When: 2 - 3 days - Reason: Discharge Instructions: - Discharge Summary Sheet rt - Constipation, Adult rt Forms: - Medication Reconciliation Form rt - Antibiotic Education rt - Prescription Opioid Use rt - Patient Portal Instructions rt - Leadership Thank You Letter rt Signatures: Dispatcher [employer] Wilfred Lind RN RN rv Able, Lacie RN RN lg3 Claude Quinn MD MD rt Corrections: (The following items were deleted from the chart) 11/04 20:37 20:37 Abdomen Pelvis W Con+CT.RAD.BRZ ordered. EDMS EDMS
[2023-11-06 01:50] VITALS: BP 136/76; TEMP 98; O2SAT 99
== END 2023-11-06 01:31 | disposition home or self-care (01) ==
LOC: ER 20:30
DX: K59.00 Constipation, unspecified (principal); Z98.890 Other specified postprocedural states
CPT/HCPCS: 96361; 85025; 36415; 83690; 80053; 74177; 96360; 99284; Q9967; J7030